=== PATIENT | female | born 1970 | race Caucasian/White ===

== ENCOUNTER → 2016-08-16 | Outpatient (CLI) | payer BC ==
[2016-08-16 11:12] LABS: INR 3.3 (<1.1); Prothrombin Time 31.6 sec (9.0-12.0)
[2016-08-16 11:45] LABS: Hemoglobin A1C 5.5 % (4.2-6.1)
== END | disposition home or self-care (01) ==
LOC: LABWHC1 09:55
PROVIDERS: ATTEND Internal Medicine Critical Care Medicine
DX: I26.99 Other pulmonary embolism without acute cor pulmonale (principal); E11.9 Type 2 diabetes mellitus without complications; E78.5 Hyperlipidemia, unspecified; E03.9 Hypothyroidism, unspecified
CPT/HCPCS: 36415; 80061; 82043; 83036; 84439; 84443; 85610

== ENCOUNTER → 2017-02-20 | Outpatient (CLI) | payer BC ==
--- NOTE | 2017-02-23 07:27 | MM ---
Reason for exam: screening (asymptomatic). Baseline mammogram. History: Patient has history of endometrial cancer at age 45 and has history of other cancer at age 45. Physical Findings: Nurse did not find any significant physical abnormalities on exam. MG 3D Screening Mammo W/Cad Bilateral CC and MLO view(s) were taken. There are scattered fibroglandular densities. There is no discrete abnormality. These results were verbally communicated with the patient and result sheet given to the patient on 02/20/17. ASSESSMENT: Negative, BI-RAD 1 RECOMMENDATION: Routine screening mammogram of both breasts in 1 year.
== END | disposition home or self-care (01) ==
LOC: RADMAMWWP 12:59
PROVIDERS: ATTEND Internal Medicine Critical Care Medicine
DX: Z12.31 Encounter for screening mammogram for malignant neoplasm of breast (principal)
CPT/HCPCS: 77063; G0202

== ENCOUNTER → 2017-09-18 | Day surgery (SDC) | payer BC ==
[2017-09-17 09:25] VITALS: BMI 34.2
[~2017-09-18] MED LIST: LACTATED RINGERS 1,000 ML IV SCH; LIDOCAINE 1% 20 ML VIAL (10MG/ML) FOR IV START INTRADERMA ONE; LIDOCAINE 1% INJ 10MG/ML (20 ML MDV) ONE; PROPOFOL 10 MG/ML 20 ML VIAL IV ONE
[2017-09-18 08:05] VITALS: RESP 16; TEMP 97.5
[2017-09-18 08:08] LABS: Glucose,Whole Blood 114 mg/dL (75-99)
--- NOTE | 2017-09-18 09:06 | P.PCN ---
Date of Procedure: 09/18/17 Procedure(s) Performed: BRIEF HISTORY: Patient is a 47-year-old pleasant white female, scheduled for an elective colonoscopy as a part of evaluation of intermittent rectal bleeding for the last 3 months duration. 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 She has history of cervical cancer diagnosed in 2016 and status post radiation and chemotherapy. PROCEDURE PERFORMED: Colonoscopy with argon plasma coagulation. PREOPERATIVE DIAGNOSIS: Intermittent rectal bleeding for 3 months duration. IV sedation per Anesthesia. PROCEDURE: After informed consent was obtained, the patient, was brought into the endoscopy unit. IV sedation was administered by Anesthesia under continuous monitoring. Digital rectal examination was normal. Initially the Olympus CF- 160 flexible video colonoscope was then inserted in the rectum, gradually advanced into the cecum without any difficulty. Careful examination was performed as the scope was gradually being withdrawn. Ileocecal valve and the appendiceal orifice were visualized and appeared normal. Prep was excellent. Mucosa of the cecum, ascending colon, transverse colon, descending colon, sigmoid colon, and rectum appeared normal. In the distal sigmoid colon between 18-22 cm from the anal verge there were scattered telangiectasia identified with no active bleeding and argon plasma coagulation was performed with good hemostasis. Also scattered telangiectasia noted in the distal rectum which were also coagulated using argon plasma. Retroflexion was performed in the rectum and no lesions were seen. The patient tolerated the procedure well. IMPRESSION: Scattered telangicectasia noted in the distal sigmoid colon and in the distal rectum consistent with radiation colitis, status post argon plasma coag ablation as described above Rest of the colon appeared normal. RECOMMENDATIONS: Findings of this examination were discussed with the patient as well as family. She was advised to resume Coumadin tomorrow. She will avoid constipation. If she has recurrent bleeding she will follow up in the office and will plan on repeat flexible sigmoidoscopy with argon plasma coagulation.
[2017-09-18 09:36] VITALS: BP 111/64; PULSE 62
== END ==
LOC: ORWHC2ENDO 07:26
PROVIDERS: ATTEND Internal Medicine Gastroenterology
DX: K55.8 Other vascular disorders of intestine (principal); Z87.19 Personal history of other diseases of the digestive system; K52.0 Gastroenteritis and colitis due to radiation; I25.2 Old myocardial infarction; E78.5 Hyperlipidemia, unspecified; Z86.718 Personal history of other venous thrombosis and embolism; F39 Unspecified mood [affective] disorder; K21.9 Gastro-esophageal reflux disease without esophagitis; Z79.01 Long term (current) use of anticoagulants; Z79.84 Long term (current) use of oral hypoglycemic drugs; Z79.899 Other long term (current) drug therapy; Z79.891 Long term (current) use of opiate analgesic; Z88.2 Allergy status to sulfonamides
CPT/HCPCS: 81025; 45382; J2001; J2704

== ENCOUNTER 2017-10-08 18:21 | Inpatient (IN) | payer BC ==
[2017-10-08] MEDS ORDERED: ONDANSETRON 4 MG/2 ML VIAL IVP STA (18:50)
[2017-10-08] MEDS ORDERED: MORPHINE SULFATE/PF 10MG/10ML VL IV STA (18:50)
[2017-10-08] MEDS ORDERED: SODIUM CHLORIDE 0.9% 1,000 ML IV STA ×2 (18:50)
[2017-10-08] MEDS ORDERED: ACETAMINOPHEN TAB 325 MG TAB PO STA (18:51)
--- NOTE | 2017-10-08 18:53 | ED ---
General Adult HPI <Murphy Wilkins - Last Filed: 10/08/17 23:25> - General Source: patient, RN notes reviewed Mode of arrival: ambulatory Limitations: no limitations <Martin Meyer - Last Filed: 10/08/17 23:34> - General Chief complaint: Abdominal Pain Stated complaint: Cold, right side pain Time Seen by Provider: 10/08/17 18:40 - History of Present Illness Initial comments: Patient 47-year-old female presenting to the emergency room today with a chief complaint right-sided abdominal pain that began again approximately 4 hours ago. Patient states she did try to take have [place] for this. She states that she had little relief of the symptoms. Patient states pain is located right side does feel some radiation into her back. Patient denies any other complaints or symptoms. Patient denies any recent shortness of breath, chest pain, back pain, nausea or vomiting, numbness or tingling, dysuria or hematuria , constipation or diarrhea, headaches or visual changes, or any other complaints. (Martin Meyer) - Related Data Home Medications Medication Instructions Recorded Confirmed ALPRAZolam [Xanax] 0.5 mg PO BID PRN 11/14/13 10/08/17 Hydrocodone/Acetaminophen [[place] 0.5 - 1 tab PO BID PRN 11/14/13 10/08/17 5-325] Omeprazole [PriLOSEC] 20 mg PO HS 11/14/13 10/08/17 Cholecalciferol [Vitamin D3] 2,000 unit PO BID 11/21/13 10/08/17 Sertraline [Zoloft] 200 mg PO DAILY 09/14/15 10/08/17 Warfarin Sodium [Coumadin] 6 mg PO HS 11/16/15 10/08/17 Biotin 5 mg PO DAILY 09/17/17 10/08/17 Cyanocobalamin (Vitamin B-12) 1,000 mcg PO DAILY 09/17/17 10/08/17 [Vitamin B-12] [place]-3 Fatty Acids/Fish Oil [Fish 1 cap PO DAILY 09/17/17 10/08/17 Oil 1,000 mg Softgel] Metoprolol Succinate (ER) [Toprol 25 mg PO BID 10/08/17 10/08/17 Xl] metFORMIN HCL [Glucophage] 500 mg PO BID 10/08/17 10/08/17 Allergies Allergy/AdvReac Type Severity Reaction Status Date / Time Sulfa (Sulfonamide Allergy Rash/Hives, Verified 10/08/17 19:42 Antibiotics) SHORTNESS OF BREATH Review of Systems ROS Other: All systems not noted in ROS Statement are negative. <Murphy Wilkins - Last Filed: 10/08/17 23:25> ROS Other: All systems not noted in ROS Statement are negative. <Martin Meyer - Last Filed: 10/08/17 23:34> ROS Statement: Those systems with pertinent positive or pertinent negative responses have been documented in the HPI. Past Medical History Past Medical History: Cancer, Chest Pain / Angina, Diabetes Mellitus, Deep Vein Thrombosis (DVT), GERD/Reflux, Hyperlipidemia, Myocardial Infarction ([place]), Pulmonary Embolus (PE) Additional Past Medical History / Comment(s): hx. DVTs and pulmonary emboli on - Coumadin, chronic neck pain, , pancreatitis X2 , cervical CA AND LYMPH NODES , RECTAL BLEEDING, Last Myocardial Infarction Date:: 2009 History of Any Multi-Drug Resistant Organisms: None Reported Past Surgical History: Back Surgery, Section, Cholecystectomy, Orthopedic Surgery, Tubal Ligation, Uterine Ablation Additional Past Surgical History / Comment(s): L4-5, L5-S1 LAMINECTOMY WITH DISCECTOMY. , D&C, CONE BX, SAY SLEEVE Past Anesthesia/Blood Transfusion Reactions: Previous Problems w/ Anesthesia Additional Past Anesthesia/Blood Transfusion Reaction / Comment(s): AWAKENED DURING SURGERY X2; SPINAL SINGH POST D&C, HAD BLOOD PATCH, Past Psychological History: Anxiety, Panic Disorder Smoking Status: Never smoker Past Alcohol Use History: None Reported Past Drug Use History: None Reported - Past Family History Mother Family Medical History: No Reported History Additional Family Medical History / Comment(s): no history Father Family Medical History: Cancer <Martin Meyer - Last Filed: 10/08/17 23:34> General Exam <Murphy Wilkins - Last Filed: 10/08/17 23:25> Limitations: no limitations <Martin Meyer - Last Filed: 10/08/17 23:34> - General Exam Comments Initial Comments: General: The patient is awake and alert, anxious Eye: Pupils are equal, round and reactive to light, extra-ocular movements are intact. No nystagmus. There is normal conjunctiva bilaterally. No signs of icterus. Ears, nose, mouth and throat: There are moist mucous membranes and no oral lesions. Neck: The neck is supple, there is no tenderness or JVD. Cardiovascular: There is a regular rate and rhythm. No murmur, rub or gallop is appreciated. Respiratory: Lungs are clear to auscultation, respirations are non-labored, breath sounds are equal. No wheezes, stridor, rales, or rhonchi. Gastrointestinal: Abdomen soft on palpation. Patient does have tenderness right lower quadrant. No rebound tenderness. No guarding. Musculoskeletal: Normal ROM, no tenderness. Strength 5/5. Sensation intact. Pulses equal bilaterally 2+. Neurological: A&O x 3. CN II-XII intact, There are no obvious motor or sensory deficits. Coordination appears grossly intact. Speech is normal. Skin: Skin is warm and dry and no rashes or lesions are noted. Psychiatric: Cooperative, appropriate mood & affect, normal judgment. (Martin Meyer) Vital Signs 10/08/17 10/08/17 10/08/17 18:32 19:28 21:27 Temperature 103.4 F H 103.0 F H 101.5 F H Pulse Rate 108 H 86 94 Respiratory 24 18 18 Rate Blood Pressure 132/61 147/63 108/54 O2 Sat by Pulse 100 99 96 Oximetry 10/08/17 23:13 Temperature 101.2 F H Pulse Rate 81 Respiratory 18 Rate Blood Pressure 110/57 O2 Sat by Pulse 100 Oximetry Medical Decision Making - Lab Data Result diagrams: 10/08/17 19:05 10/08/17 19:05 <Murphy Wilkins - Last Filed: 10/08/17 23:25> - Lab Data Result diagrams: 10/08/17 19:05 10/08/17 19:05 <Martin Meyer - Last Filed: 10/08/17 23:34> - Medical Decision Making Patient reevaluated by myself, Dr. Wilkins. Patient resting comfortably in bed. Patient states discomfort is starting to worsen. Abdomen is soft with moderate tenderness right lower quadrant and some guarding. Patient has previously seen Dr. Watt for gallbladder problems. Case was discussed in detail with Dr. Camacho, who will admit for Dr. Watt. She does recommend providing antibiotics at this time secondary to fever. Patient has suspected infection and therefore suspected sepsis diagnosed at 11: 26 PM. (Murphy Wilkins) - Lab Data Lab Results 10/08/17 10/08/17 10/08/17 Range/Units 19:05 19:05 19:05 WBC 5.6 (3.8-10.6) k/uL RBC 4.37 (3.80-5.40) m/uL Hgb 11.8 (11.4-16.0) gm/dL Hct 35.3 (34.0-46.0) % MCV 80.8 (80.0-100.0) fL MCH 27.0 (25.0-35.0) pg MCHC 33.5 (31.0-37.0) g/dL RDW 14.4 (11.5-15.5) % Plt Count 139 L (150-450) k/uL Neutrophils % 87 % Lymphocytes % 7 % Monocytes % 4 % Eosinophils % 1 % Basophils % 0 % Neutrophils # 4.9 (1.3-7.7) k/uL Lymphocytes # 0.4 L (1.0-4.8) k/uL Monocytes # 0.2 (0-1.0) k/uL Eosinophils # 0.1 (0-0.7) k/uL Basophils # 0.0 (0-0.2) k/uL PT (9.0-12.0) sec INR (<1.2) APTT (22.0-30.0) sec Sodium 137 (137-145) mmol/L Potassium 4.2 (3.5-5.1) mmol/L Chloride 101 (98-107) mmol/L Carbon Dioxide 22 (22-30) mmol/L Anion Gap 14 mmol/L BUN 17 (7-17) mg/dL Creatinine 0.91 (0.52-1.04) mg/dL Est GFR (CKD-EPI)AfAm 87 (>60 ml/min/1.73 sqM) Est GFR (CKD-EPI)NonAf 75 (>60 ml/min/1.73 sqM) Glucose 99 (74-99) mg/dL Plasma Lactic Acid Trevor (0.7-2.0) mmol/L Calcium 10.4 H (8.4-10.2) mg/dL Total Bilirubin 0.5 (0.2-1.3) mg/dL AST 89 H (14-36) U/L ALT 64 H (9-52) U/L Alkaline Phosphatase 67 (38-126) U/L Total Protein 6.8 (6.3-8.2) g/dL Albumin 4.1 (3.5-5.0) g/dL Amylase 45 (30-110) U/L Lipase 132 (23-300) U/L Urine Color Urine Appearance (Clear) Urine pH (5.0-8.0) Ur Specific [place] (1.001-1.035) Urine Protein (Negative) Urine Glucose (UA) (Negative) Urine Ketones (Negative) Urine Blood (Negative) Urine Nitrite (Negative) Urine Bilirubin (Negative) Urine Urobilinogen (<2.0) mg/dL Ur Leukocyte Esterase (Negative) Urine RBC (0-5) /hpf Urine WBC (0-5) /hpf Ur Squamous Epith Cells (0-4) /hpf Urine Bacteria (None) /hpf Urine Mucus (None) /hpf Urine HCG, Qual Not Detected (Not Detectd) 10/08/17 10/08/17 10/08/17 Range/Units 19:05 19:05 19:05 WBC (3.8-10.6) k/uL RBC (3.80-5.40) m/uL Hgb (11.4-16.0) gm/dL Hct (34.0-46.0) % MCV (80.0-100.0) fL MCH (25.0-35.0) pg MCHC (31.0-37.0) g/dL RDW (11.5-15.5) % Plt Count (150-450) k/uL Neutrophils % % Lymphocytes % % Monocytes % % Eosinophils % % Basophils % % Neutrophils # (1.3-7.7) k/uL Lymphocytes # (1.0-4.8) k/uL Monocytes # (0-1.0) k/uL Eosinophils # (0-0.7) k/uL Basophils # (0-0.2) k/uL PT 14.2 H (9.0-12.0) sec INR 1.5 H (<1.2) APTT 26.0 (22.0-30.0) sec Sodium (137-145) mmol/L Potassium (3.5-5.1) mmol/L Chloride (98-107) mmol/L Carbon Dioxide (22-30) mmol/L Anion Gap mmol/L BUN (7-17) mg/dL Creatinine (0.52-1.04) mg/dL Est GFR (CKD-EPI)AfAm (>60 ml/min/1.73 sqM) Est GFR (CKD-EPI)NonAf (>60 ml/min/1.73 sqM) Glucose (74-99) mg/dL Plasma Lactic Acid Trevor 1.8 (0.7-2.0) mmol/L Calcium (8.4-10.2) mg/dL Total Bilirubin (0.2-1.3) mg/dL AST (14-36) U/L ALT (9-52) U/L Alkaline Phosphatase (38-126) U/L Total Protein (6.3-8.2) g/dL Albumin (3.5-5.0) g/dL Amylase (30-110) U/L Lipase (23-300) U/L Urine Color Yellow Urine Appearance Clear (Clear) Urine pH 8.5 H (5.0-8.0) Ur Specific [place] 1.015 (1.001-1.035) Urine Protein Negative (Negative) Urine Glucose (UA) Negative (Negative) Urine Ketones Negative (Negative) Urine Blood Negative (Negative) Urine Nitrite Negative (Negative) Urine Bilirubin Negative (Negative) Urine Urobilinogen <2.0 (<2.0) mg/dL Ur Leukocyte Esterase Moderate H (Negative) Urine RBC 9 H (0-5) /hpf Urine WBC 10 H (0-5) /hpf Ur Squamous Epith Cells 1 (0-4) /hpf Urine Bacteria Rare H (None) /hpf Urine Mucus Rare H (None) /hpf Urine HCG, Qual (Not Detectd) Disposition <Murphy Wilkins - Last Filed: 10/08/17 23:25> Time of Disposition: 23:34 <Martin Meyer - Last Filed: 10/08/17 23:34> Clinical Impression: Abdominal pain, Fever Disposition: ADMITTED IP TO THIS [facility] Referrals: Lobo Max MD [Primary Care Provider] - 1-2 days
[2017-10-08] MEDS ORDERED: MORPHINE SULFATE/PF 10MG/10ML VL ONE (18:55)
[2017-10-08 19:23] LABS: Basophils % (A) 0 %; Eosinophils # (A) 0.1 k/uL (0-0.7); Eosinophils % (A) 1 %; HCT 35.3 % (34.0-46.0); HGB 11.8 gm/dL (11.4-16.0); Lymphocytes # (A) 0.4 k/uL (1.0-4.8); Lymphocytes % (A) 7 %; MCHC 33.5 g/dL (31.0-37.0); MCV 80.8 fL (80.0-100.0); Mean Platelet Volume 8.3; Monocytes # (A) 0.2 k/uL (0-1.0); Monocytes % (A) 4 %; Neutrophils # (A) 4.9 k/uL (1.3-7.7); Neutrophils % (A) 87 %; Platelet Count 139 k/uL (150-450); RBC 4.37 m/uL (3.80-5.40); RDW 14.4 % (11.5-15.5); WBC 5.6 k/uL (3.8-10.6)
[2017-10-08 19:31] LABS: Appearance,Urine Clear (Clear); Bacteria,Urine Rare /hpf; Bilirubin,Urine Negative (Negative); Blood,Urine Negative (Negative); Color,Urine Yellow; Glucose,Urine (UA) Negative (Negative); Ketones,Urine Negative (Negative); Leukocyte Esterase,Urine Moderate (Negative); Mucus,Urine Rare /hpf; Nitrite,Urine Negative (Negative); PH, Urine 8.5 (5.0-8.0); Protein,Urine Negative (Negative); RBC,Urine 9 /hpf (0-5); Specific Gravity,Urine 1.015 (1.001-1.035); Squamous Epithelial Cell,Urine 1 /hpf (0-4); Urobilinogen,Urine <2.0 mg/dL (<2.0); WBC,Urine 10 /hpf (0-5)
[2017-10-08 19:32] LABS: Albumin 4.1 g/dL (3.5-5.0); Calcium 10.4 mg/dL (8.4-10.2); Potassium 4.2 mmol/L (3.5-5.1); Total Bilirubin 0.5 mg/dL (0.2-1.3); Total Protein 6.8 g/dL (6.3-8.2)
[2017-10-08] MEDS ORDERED: RX INFO: IV CONTRAST WAS GIVEN 1 EACH MISC MISCELLANE PRN (19:45)
[2017-10-08 19:54] LABS: INR 1.5 (<1.2); Prothrombin Time 14.2 sec (9.0-12.0)
--- NOTE | 2017-10-08 20:41 | CT ---
EXAMINATION TYPE: CT abdomen pelvis w con DATE OF EXAM: 10/08/2017 COMPARISON: 09/15/2015 HISTORY: Fever. Right sided abdominal/flank pain. Right arm pain. History of PE. CT DLP: 1407.5 mGycm Automated exposure control for dose reduction was used. TECHNIQUE: Helical acquisition of images was performed from the lung bases through the pelvis. CONTRAST: Performed without Oral Contrast and with IV Contrast, patient injected with 100 mL of Isovue 370. FINDINGS: Lung bases are clear of consolidation. There are small linear density consistent with subsegmental at electasis. There is no pleural effusion. Heart size is normal. Liver spleen pancreas appear normal. There are clips from cholecystectomy. Bile ducts are not dilated . There is no adrenal mass. Kidneys show satisfactory contrast opacification. There is no hydronephrosi s. There is no retroperitoneal adenopathy. There is no ascites. Appendix appears normal. There are fe w sigmoid diverticula. Bladder distends smoothly. There is no evidence of a pelvic mass. There is no sign of a bowel obstruction. There is no evidence of a inguinal hernia. There is a small umbilical hernia that contains fat. Uterus is anteverted. IMPRESSION: NORMAL APPENDIX. NO DILATED DUCTS. THERE IS CLEARING OF THE PLEURAL FLUID AND BASILAR PULMONARY INFIL TRATES COMPARED TO OLD CT SCAN. NO SIGN OF AN ACUTE ABDOMEN AND PELVIS.
--- NOTE | 2017-10-08 20:45 | CT ---
EXAMINATION TYPE: CT angio chest DATE OF EXAM: 10/08/2017 8:24 PM COMPARISON: 07/20/2013 HISTORY: Fever. Right sided abdominal/flank pain. Right arm pain. History of PE. CT DLP: 396.8 mGycm Automated exposure control for dose reduction was used. CONTRAST: CTA scan of the thorax is performed with IV Contrast, patient injected with 100 mL of Isovue 370, pul monary embolism protocol. There are 3-D post processed images.. FINDINGS: The lungs are clear of consolidation. There is no evidence of a pulmonary mass. There is mild subsegm ental atelectasis at the lung bases. Heart size is normal. There is no pericardial effusion. Thoracic aorta appears normal. There is no sign of aneurysm or dissection. I see no filling defects in the pu lmonary arteries. There is no mediastinal adenopathy. There are no hilar masses. The bony thorax appe ars intact. There is mild spurring in the thoracic spine. IMPRESSION: MINIMAL SUBSEGMENTAL ATELECTASIS AT THE LUNG BASES. NO EVIDENCE OF PULMONARY EMBOLISM. NO ADVERSE [place] NGE COMPARED TO OLD EXAM.
--- NOTE | 2017-10-08 22:43 | US ---
EXAMINATION TYPE: US venous doppler duplex LE DATE OF EXAM: 10/08/2017 10:21 PM COMPARISON: NONE CLINICAL HISTORY: Pain. Pain bilateral legs. Hx of PE and DVT patient on blood thinners. SIDE PERFORMED: Bilateral TECHNIQUE: The lower extremity deep venous system is examined utilizing real time linear array sonog axel with graded compression, doppler sonography and color-flow sonography. VESSELS IMAGED: External Iliac Vein (EIV) Common Femoral Vein Deep Femoral Vein Greater Saphenous Vein * Femoral Vein Popliteal Vein Small Saphenous Vein * Proximal Calf Veins (* superficial vessels) FINDINGS: Grayscale, color doppler, spectral doppler imaging performed of the deep veins of the lower extremities. There is normal flow, compressibility, vascular waveforms. IMPRESSION: NEGATIVE FOR DVT BILATERAL LOWER EXTREMITIES.
--- NOTE | 2017-10-08 23:07 | US ---
EXAMINATION TYPE: US transvaginal DATE OF EXAM: 10/08/2017 COMPARISON: NONE CLINICAL HISTORY: pain. RLQ pain TECHNIQUE: Transvaginal (TV). EXAM MEASUREMENTS: Uterus: 5.9 x 2.3 x 3.7 cm Endometrial Stripe: 0.4 cm 1. Uterus: Anteverted 2. Endometrium: wnl 3. Right Ovary: Obscured by overlying bowel gas 4. Left Ovary: Obscured by overlying bowel gas 5. Bilateral Adnexa: wnl 6. Posterior cul-de-sac: wnl IMPRESSION: Ovaries are not seen. No adnexal mass or free fluid. No endometrial thickening seen. No d emonstrated abnormality.
[2017-10-08] MEDS ORDERED: IBUPROFEN IV 800 MG in SODIUM CHLORIDE 0.9% 250 ML IV ONE (23:10)
[2017-10-08] MEDS ORDERED: AMPICILLIN-SULBACTAM 3 GM in SODIUM CHLORIDE 0.9% 100 ML IVPB STA (23:27)
[2017-10-08] MEDS ORDERED: MORPHINE SULFATE/PF 10MG/10ML VL IVP STA (23:28)
[2017-10-08] MEDS ORDERED: NALOXONE 0.4 MG/ML 1 ML VIAL IV PRN (23:34)
[2017-10-08] MEDS ORDERED: ONDANSETRON 4 MG/2 ML VIAL IVP PRN (23:34)
[2017-10-09] MEDS: MORPHINE SULFATE/PF 10MG/10ML VL IV PRN ×3 (06:33→20:13)
[2017-10-09] MEDS: AMPICILLIN-SULBACTAM 3 GM in SODIUM CHLORIDE 0.9% 100 ML IVPB SCH ×2 (07:41→17:49)
[2017-10-09 07:45] LABS: Basophils % (A) 0 %; Eosinophils % (A) 0 %; HCT 33.4 % (34.0-46.0); HGB 10.5 gm/dL (11.4-16.0); Hypochromasia Slight; Lymphocytes # (A) 0.2 k/uL (1.0-4.8); Lymphocytes % (A) 5 %; MCH 26.2 pg (25.0-35.0); MCHC 31.5 g/dL (31.0-37.0); MCV 83.1 fL (80.0-100.0); Mean Platelet Volume 8.6; Monocytes # (A) 0.2 k/uL (0-1.0); Monocytes % (A) 5 %; Neutrophils # (A) 3.5 k/uL (1.3-7.7); Neutrophils % (A) 88 %; Platelet Count 115 k/uL (150-450); RBC 4.01 m/uL (3.80-5.40); RDW 14.4 % (11.5-15.5); WBC 3.9 k/uL (3.8-10.6)
[2017-10-09 07:55] LABS: Albumin 3.5 g/dL (3.5-5.0); Calcium 9.8 mg/dL (8.4-10.2); Potassium 4.6 mmol/L (3.5-5.1); Total Bilirubin 0.8 mg/dL (0.2-1.3)
[2017-10-09] MEDS: ACETAMINOPHEN TAB 325 MG TAB PO PRN ×2 (08:12→17:50)
[2017-10-09 08:20] LABS: Glucose,Whole Blood 111 mg/dL (75-99)
--- NOTE | 2017-10-09 11:39 | P.GSHP ---
<Claudine Prakash - Last Filed: 10/09/17 13:41> History of Present Illness H&P Date: 10/09/17 A 47-year-old female presented to the emergency room on the day of admission with a sudden onset of developing right lower quadrant abdominal pain radiating to the suprapubic area down the right leg. Patient stated that she felt a nausea sensation. Fever chills. She stated no relief when she tried to take [place] that she had at home. States no shortness of breath no chest pain no nausea vomiting no frequent stooling patient states that she's had intermittent episodes of rectal bleeding not new. Patient additionally states that her pain felt similar to "when I had a pancreatitis attack. Patient states that she had lap cholecystectomy done in [address] Khalil and has not had any pancreatic issues since then patient does have a history of uterine cancer with lymph node involvement has completed chemo and radiation treatment. Also has a history of a pulmonary emboli and DVT. This admission patient did have a CAT scan of chest no evidence of a pulmonary emboli and Dopplers to the lower extremities showed no evidence of a DVT is stating that the pain medication does reduce the pain but the pain persist. Additionally the patient did have an ultrasound transvaginal ovaries not seen no demonstrated abnormality Patient underwent recently September 18 an elective colonoscopy with argon plasma coagulation for a workup of episodes intermittent rectal bleeding for the last 3 months. Reviewing the report showed scattered telangicectasis noted distal sigmoid colon and in the distal rectum consistent with radiation colitis rest of the colon Normal Patient this morning's temperature 102.6 heart rate in the 90s - Review of Systems Comment: Essentially unremarkable except as mentioned in the present illness Past Medical History Past Medical History: Cancer, Chest Pain / Angina, Diabetes Mellitus, Deep Vein Thrombosis (DVT), GERD/Reflux, Hyperlipidemia, Myocardial Infarction (HI), Pulmonary Embolus (PE) Additional Past Medical History / Comment(s): hx. DVTs and pulmonary emboli on - Coumadin, chronic neck pain, , pancreatitis X2 , cervical CA AND LYMPH NODES , RECTAL BLEEDING, Last Myocardial Infarction Date:: 2009 History of Any Multi-Drug Resistant Organisms: None Reported Past Surgical History: Back Surgery, Section, Cholecystectomy, Orthopedic Surgery, Tubal Ligation, Uterine Ablation Additional Past Surgical History / Comment(s): L4-5, L5-S1 LAMINECTOMY WITH DISCECTOMY. , D&C, CONE BX, SAY SLEEVE Past Anesthesia/Blood Transfusion Reactions: Previous Problems w/ Anesthesia Additional Past Anesthesia/Blood Transfusion Reaction / Comment(s): AWAKENED DURING SURGERY X2; SPINAL SINGH POST D&C, HAD BLOOD PATCH, Past Psychological History: Anxiety, Panic Disorder Additional Psychological History / Comment(s): ANXIETY DURING THE WINTER, PANIC ATTACKS WHEN DRIVING. Smoking Status: Never smoker Past Alcohol Use History: None Reported Additional Past Alcohol Use History / Comment(s): Patient has been a lifelong nonsmoker. She denies any medical marijuana marijuana, street drug use or alcohol use. She lives at home with her and 2 children. There are 2 dogs in the home. She denies any recent travel but has been to [place] a regular in the past. She denies any service. 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 Past Drug Use History: None Reported - Past Family History Mother Family Medical History: No Reported History Additional Family Medical History / Comment(s): no history Father Family Medical History: Cancer Medications and Allergies Home Medications Medication Instructions Recorded Confirmed Type ALPRAZolam [Xanax] 0.5 mg PO BID PRN 11/14/13 10/08/17 History Hydrocodone/Acetaminophen [[place] 0.5 - 1 tab PO BID PRN 11/14/13 10/08/17 History 5-325] Omeprazole [PriLOSEC] 20 mg PO HS 11/14/13 10/08/17 History Cholecalciferol [Vitamin D3] 2,000 unit PO BID 11/21/13 10/08/17 History Sertraline [Zoloft] 200 mg PO DAILY 09/14/15 10/08/17 History Warfarin Sodium [Coumadin] 6 mg PO HS 11/16/15 10/08/17 History Biotin 5 mg PO DAILY 09/17/17 10/08/17 History Cyanocobalamin (Vitamin B-12) 1,000 mcg PO DAILY 09/17/17 10/08/17 History [Vitamin B-12] [place]-3 Fatty Acids/Fish Oil [Fish 1 cap PO DAILY 09/17/17 10/08/17 History Oil 1,000 mg Softgel] Metoprolol Succinate (ER) [Toprol 25 mg PO BID 10/08/17 10/08/17 History Xl] metFORMIN HCL [Glucophage] 500 mg PO BID 10/08/17 10/08/17 History Allergies Allergy/AdvReac Type Severity Reaction Status Date / Time Sulfa (Sulfonamide Allergy Rash/Hives, Verified 10/08/17 19:42 Antibiotics) SHORTNESS OF BREATH Surgical - Exam Vital Signs Temp Pulse Resp BP Pulse Ox 103.4 F H 108 H 24 132/61 100 10/08/17 18:32 10/08/17 18:32 10/08/17 18:32 10/08/17 18:32 10/08/17 18:32 GENERAL APPEARANCE: 47-year-old patient is alert, resting in bed just received pain medication reports continues to have right lower quadrant pain. VITAL SIGNS: Reviewed HEENT: Head is normocephalic and atraumatic. Pupils are equal and reactive. The nares are patent. Oropharynx is clear without lesions. NECK: Supple without lymphadenopathy. Traches midline. HEART: S1, S2. Regular rate and rhythm. Denies chest pain LUNGS: No crackles or wheezes are heard. Adequate air movement bilaterally ABDOMEN: Soft, positive tenderness to the right lower quadrant radiating to suprapubic area no palpable lymph node enlargement nondistended with good bowel sounds. No peritoneal signs. No palpable organomegaly or masses. EXTREMITIES: Normal skin color and turgor. No cyanosis, rash, ulceration, clubbing or edema. Radial pedal pulses are 2/4 bilaterally. No calf tenderness NEUROLOGICAL: No focal deficits. Strength and sensation are grossly intact. Results - Labs 10/09/17 06:16 10/09/17 06:16 Abnormal Lab Results - Last 24 Hours (Table) 10/08/17 10/08/17 10/08/17 Range/Units 19:05 19:05 19:05 Hgb (11.4-16.0) gm/dL Hct (34.0-46.0) % Plt Count 139 L (150-450) k/uL Lymphocytes # 0.4 L (1.0-4.8) k/uL PT (9.0-12.0) sec INR (<1.2) Creatinine (0.52-1.04) mg/dL Glucose (74-99) mg/dL POC Glucose (mg/dL) (75-99) mg/dL Calcium 10.4 H (8.4-10.2) mg/dL AST 89 H (14-36) U/L ALT 64 H (9-52) U/L Total Protein (6.3-8.2) g/dL Urine pH 8.5 H (5.0-8.0) Ur Leukocyte Esterase Moderate H (Negative) Urine RBC 9 H (0-5) /hpf Urine WBC 10 H (0-5) /hpf Urine Bacteria Rare H (None) /hpf Urine Mucus Rare H (None) /hpf 10/08/17 10/09/17 10/09/17 Range/Units 19:05 06:16 06:16 Hgb 10.5 L (11.4-16.0) gm/dL Hct 33.4 L (34.0-46.0) % Plt Count 115 L (150-450) k/uL Lymphocytes # 0.2 L (1.0-4.8) k/uL PT 14.2 H (9.0-12.0) sec INR 1.5 H (<1.2) Creatinine 1.07 H (0.52-1.04) mg/dL Glucose 101 H (74-99) mg/dL POC Glucose (mg/dL) (75-99) mg/dL Calcium (8.4-10.2) mg/dL AST 147 H (14-36) U/L ALT 128 H (9-52) U/L Total Protein 6.0 L (6.3-8.2) g/dL Urine pH (5.0-8.0) Ur Leukocyte Esterase (Negative) Urine RBC (0-5) /hpf Urine WBC (0-5) /hpf Urine Bacteria (None) /hpf Urine Mucus (None) /hpf 10/09/17 Range/Units 08:17 Hgb (11.4-16.0) gm/dL Hct (34.0-46.0) % Plt Count (150-450) k/uL Lymphocytes # (1.0-4.8) k/uL PT (9.0-12.0) sec INR (<1.2) Creatinine (0.52-1.04) mg/dL Glucose (74-99) mg/dL POC Glucose (mg/dL) 111 H (75-99) mg/dL Calcium (8.4-10.2) mg/dL AST (14-36) U/L ALT (9-52) U/L Total Protein (6.3-8.2) g/dL Urine pH (5.0-8.0) Ur Leukocyte Esterase (Negative) Urine RBC (0-5) /hpf Urine WBC (0-5) /hpf Urine Bacteria (None) /hpf Urine Mucus (None) /hpf Microbiology - Last 24 Hours (Table) 10/08/17 19:05 Urine Culture - Preliminary Urine,Voided Diabetes panel 10/08/17 10/09/17 Range/Units 19:05 06:16 Sodium 137 141 (137-145) mmol/L Potassium 4.2 4.6 (3.5-5.1) mmol/L Chloride 101 105 (98-107) mmol/L Carbon Dioxide 22 26 (22-30) mmol/L BUN 17 13 (7-17) mg/dL Creatinine 0.91 1.07 H (0.52-1.04) mg/dL Glucose 99 101 H (74-99) mg/dL Calcium 10.4 H 9.8 (8.4-10.2) mg/dL AST 89 H 147 H (14-36) U/L ALT 64 H 128 H (9-52) U/L Alkaline Phosphatase 67 66 (38-126) U/L Total Protein 6.8 6.0 L (6.3-8.2) g/dL Albumin 4.1 3.5 (3.5-5.0) g/dL Calcium panel 10/08/17 10/09/17 Range/Units 19:05 06:16 Calcium 10.4 H 9.8 (8.4-10.2) mg/dL Albumin 4.1 3.5 (3.5-5.0) g/dL Pituitary panel 10/08/17 10/09/17 Range/Units 19:05 06:16 Sodium 137 141 (137-145) mmol/L Potassium 4.2 4.6 (3.5-5.1) mmol/L Chloride 101 105 (98-107) mmol/L Carbon Dioxide 22 26 (22-30) mmol/L BUN 17 13 (7-17) mg/dL Creatinine 0.91 1.07 H (0.52-1.04) mg/dL Glucose 99 101 H (74-99) mg/dL Calcium 10.4 H 9.8 (8.4-10.2) mg/dL Adrenal panel 03/29/18 03/30/18 Range/Units 19:05 06:16 Sodium 137 141 (137-145) mmol/L Potassium 4.2 4.6 (3.5-5.1) mmol/L Chloride 101 105 (98-107) mmol/L Carbon Dioxide 22 26 (22-30) mmol/L BUN 17 13 (7-17) mg/dL Creatinine 0.91 1.07 H (0.52-1.04) mg/dL Glucose 99 101 H (74-99) mg/dL Calcium 10.4 H 9.8 (8.4-10.2) mg/dL Total Bilirubin 0.5 0.8 (0.2-1.3) mg/dL AST 89 H 147 H (14-36) U/L ALT 64 H 128 H (9-52) U/L Alkaline Phosphatase 67 66 (38-126) U/L Total Protein 6.8 6.0 L (6.3-8.2) g/dL Albumin 4.1 3.5 (3.5-5.0) g/dL Assessment and Plan Assessment: Impression Present on admission sudden onset right lower quadrant abdominal pain radiating down right leg unclear etiology Present on admission febrile hypotensive History of uterine cancer completed radiation chemotherapy Prior history of pancreatitis [address] Khalil History of a DVT and pulmonary emboli with a CAT scan of the chest this admission no evidence of a pulmonary emboli Dopplers to the lower extremities negative for DVT A recent elective colonoscopy September 18 for workup of intermittent episodes of rectal bleeding showed scattered telangicestasia noted in the distal sigmoid colon and the distal rectum consistent with radiation colitis CAT scan abdomen and pelvis on admission normal appendix no dilated ducts no acute abdomen or pelvis no sign of bowel obstruction no inguinal hernia History of a DVT and a pulmonary emboli on anticoagulation Coumadin INR on admission 1.5 Plan When appropriate will need to restart Coumadin Consult infectious disease Dr. Bennett recommendations fever antibiotics Follow-up on pending labs Resume home meds as appropriate No evidence of an acute surgical abdomen at this time Consult medical service for medical management Repeat labs in the morning Further surgical recommendations pending H&P dictated for Dr. mayorga The above impression and plan of care have been discussed and directed by signing physician. Claudine Prakash nurse practitioner acting as scribe for signing physician. <Zack Mayorga - Last Filed: 10/09/17 15:44> Surgical - Exam Vital Signs Temp Pulse Resp BP Pulse Ox 103.4 F H 108 H 24 132/61 100 10/08/17 18:32 10/08/17 18:32 10/08/17 18:32 10/08/17 18:32 10/08/17 18:32 Results - Labs 10/09/17 06:16 10/09/17 06:16 Abnormal Lab Results - Last 24 Hours (Table) 10/08/17 10/08/17 10/08/17 Range/Units 19:05 19:05 19:05 Hgb (11.4-16.0) gm/dL Hct (34.0-46.0) % Plt Count 139 L (150-450) k/uL Lymphocytes # 0.4 L (1.0-4.8) k/uL PT (9.0-12.0) sec INR (<1.2) Creatinine (0.52-1.04) mg/dL Glucose (74-99) mg/dL POC Glucose (mg/dL) (75-99) mg/dL Calcium 10.4 H (8.4-10.2) mg/dL AST 89 H (14-36) U/L ALT 64 H (9-52) U/L Total Protein (6.3-8.2) g/dL Urine pH 8.5 H (5.0-8.0) Ur Leukocyte Esterase Moderate H (Negative) Urine RBC 9 H (0-5) /hpf Urine WBC 10 H (0-5) /hpf Urine Bacteria Rare H (None) /hpf Urine Mucus Rare H (None) /hpf 10/08/17 10/09/17 10/09/17 Range/Units 19:05 06:16 06:16 Hgb 10.5 L (11.4-16.0) gm/dL Hct 33.4 L (34.0-46.0) % Plt Count 115 L (150-450) k/uL Lymphocytes # 0.2 L (1.0-4.8) k/uL PT 14.2 H (9.0-12.0) sec INR 1.5 H (<1.2) Creatinine 1.07 H (0.52-1.04) mg/dL Glucose 101 H (74-99) mg/dL POC Glucose (mg/dL) (75-99) mg/dL Calcium (8.4-10.2) mg/dL AST 147 H (14-36) U/L ALT 128 H (9-52) U/L Total Protein 6.0 L (6.3-8.2) g/dL Urine pH (5.0-8.0) Ur Leukocyte Esterase (Negative) Urine RBC (0-5) /hpf Urine WBC (0-5) /hpf Urine Bacteria (None) /hpf Urine Mucus (None) /hpf 10/09/17 10/09/17 Range/Units 08:17 11:47 Hgb (11.4-16.0) gm/dL Hct (34.0-46.0) % Plt Count (150-450) k/uL Lymphocytes # (1.0-4.8) k/uL PT (9.0-12.0) sec INR (<1.2) Creatinine (0.52-1.04) mg/dL Glucose (74-99) mg/dL POC Glucose (mg/dL) 111 H 103 H (75-99) mg/dL Calcium (8.4-10.2) mg/dL AST (14-36) U/L ALT (9-52) U/L Total Protein (6.3-8.2) g/dL Urine pH (5.0-8.0) Ur Leukocyte Esterase (Negative) Urine RBC (0-5) /hpf Urine WBC (0-5) /hpf Urine Bacteria (None) /hpf Urine Mucus (None) /hpf Microbiology - Last 24 Hours (Table) 10/08/17 19:05 Urine Culture - Preliminary Urine,Voided Diabetes panel 10/08/17 10/09/17 Range/Units 19:05 06:16 Sodium 137 141 (137-145) mmol/L Potassium 4.2 4.6 (3.5-5.1) mmol/L Chloride 101 105 (98-107) mmol/L Carbon Dioxide 22 26 (22-30) mmol/L BUN 17 13 (7-17) mg/dL Creatinine 0.91 1.07 H (0.52-1.04) mg/dL Glucose 99 101 H (74-99) mg/dL Calcium 10.4 H 9.8 (8.4-10.2) mg/dL AST 89 H 147 H (14-36) U/L ALT 64 H 128 H (9-52) U/L Alkaline Phosphatase 67 66 (38-126) U/L Total Protein 6.8 6.0 L (6.3-8.2) g/dL Albumin 4.1 3.5 (3.5-5.0) g/dL Calcium panel 10/08/17 10/09/17 Range/Units 19:05 06:16 Calcium 10.4 H 9.8 (8.4-10.2) mg/dL Albumin 4.1 3.5 (3.5-5.0) g/dL Pituitary panel 10/08/17 10/09/17 Range/Units 19:05 06:16 Sodium 137 141 (137-145) mmol/L Potassium 4.2 4.6 (3.5-5.1) mmol/L Chloride 101 105 (98-107) mmol/L Carbon Dioxide 22 26 (22-30) mmol/L BUN 17 13 (7-17) mg/dL Creatinine 0.91 1.07 H (0.52-1.04) mg/dL Glucose 99 101 H (74-99) mg/dL Calcium 10.4 H 9.8 (8.4-10.2) mg/dL Adrenal panel 10/08/17 10/09/17 Range/Units 19:05 06:16 Sodium 137 141 (137-145) mmol/L Potassium 4.2 4.6 (3.5-5.1) mmol/L Chloride 101 105 (98-107) mmol/L Carbon Dioxide 22 26 (22-30) mmol/L BUN 17 13 (7-17) mg/dL Creatinine 0.91 1.07 H (0.52-1.04) mg/dL Glucose 99 101 H (74-99) mg/dL Calcium 10.4 H 9.8 (8.4-10.2) mg/dL Total Bilirubin 0.5 0.8 (0.2-1.3) mg/dL AST 89 H 147 H (14-36) U/L ALT 64 H 128 H (9-52) U/L Alkaline Phosphatase 67 66 (38-126) U/L Total Protein 6.8 6.0 L (6.3-8.2) g/dL Albumin 4.1 3.5 (3.5-5.0) g/dL Assessment and Plan Plan: The patient has low pelvic pain which radiates to the right left lower quadrant. She's had some nausea On exam her vital signs are stable. Her abdomen soft. There is no evidence of peritoneal signs. There is no rebound or guarding. She is mildly diffusely the left and right lower quadrants. Patient's CAT scan was reviewed. There is no evidence of acute appendicitis. She may have a viral gastritis. The patient will be observed. If her pelvic pain persists she may benefit from [employer] consultation.
[2017-10-09] MEDS: SODIUM CHLORIDE 0.9% 1,000 ML IV SCH ×2 (11:47→20:15)
[2017-10-09 11:57] LABS: Glucose,Whole Blood 103 mg/dL (75-99)
[2017-10-09] MEDS: INSULIN ASPART 100 UNIT/ML 1 ML 10 ML VIAL SQ SCH ×3 (13:16→21:30)
[2017-10-09] MEDS: PANTOPRAZOLE 40 MG/10 ML VIAL IVP SCH ×2 (13:17→21:43)
[2017-10-09 16:10] LABS: Hepatitis A Antibody IgM Non-Reactive (Non-Reactive); Hepatitis B Core IgM Non-Reactive (Non-Reactive)
[2017-10-09 17:29] LABS: Glucose,Whole Blood 83 mg/dL (75-99)
[2017-10-09 17:49] LABS: Hemoglobin A1C 5.8 % (4.0-6.0)
[2017-10-09] MEDS ORDERED: traMADol 50 MG TAB PO PRN (18:54)
[2017-10-09] MEDS ORDERED: ALPRAZolam 0.5 MG TAB PO PRN (18:54)
[2017-10-09] MEDS ORDERED: HYDROcodone/APAP 5-325MG 1 EACH TAB PO PRN ×2 (18:54)
[2017-10-09 19:51] LABS: INR 1.5 (<1.2); Prothrombin Time 13.7 sec (9.0-12.0)
--- NOTE | 2017-10-09 20:22 | CONS ---
CONSULTATION REASON FOR CONSULTATION: Advice regarding abdominal pain, diarrhea and other medical issues requested by Surgery. HISTORY OF PRESENT ILLNESS: This 47-year-old woman with a past medical history of multiple medical problems, including history of diabetes, history of DVT, history of GERD, hyperlipidemia, history of myocardial infarction, history of pulmonary embolism, history of chronic neck pain, history of pancreatitis x2, history of cholecystitis, history of cholecystectomy , history of anxiety, history panic disorder, history of DJD, history of laminectomy, diskectomy, being followed by Dr. Max in the outpatient setting was complaining of abdominal pain. The patient apparently works in [employer] around [place] the patient had abdominal pain which is on the right lower quadrant, almost like appendicitis, subsequently going up along the right of the right side of the abdomen and right hypochondrium. The patient had multiple episodes of diarrhea and the patient came to [facility] and was admitted for further evaluation and treatment. The CT scan of the abdomen and pelvis was done which showed no evidence of, no evidence of any appendicitis. The patient did have a cholecystectomy previously. The chest CT was also done which showed subsegmental atelectasis on the lungs. There was no evidence of pulmonary embolism and a transvaginal ultrasound which showed no acute abnormality and the patient also had a venous Doppler study which was negative for DVT in both bilateral legs. There is no history of any fever, rigors. No history of headache, loss of consciousness, seizures. PAST MEDICAL HISTORY: History of chest pain, diabetes mellitus, DVT, GERD, hyperlipidemia, history of pulmonary embolism, history of back surgery, history of anxiety, panic attacks. MEDICATIONS PRIOR TO ADMISSION: Include home medications are: 1. Metformin 500 mg p.o. b.i.d. 2. Coumadin 6 mg q.h.s. 3. Zoloft 200 mg daily. 4. Prilosec 20 mg q.h.s. 5. [place]-3 fatty acids 1 p.o. daily. 6. Toprol-XL 25 mg p.o. b.i.d. 7. [place] b.i.d. p.r.n. 8. Vitamin B12 1000 mcg p.o. daily. 9. Vitamin D3 2000 daily. 10.Biotin 5 mg p.o. daily. 11.Xanax 0.5 b.i.d. p.r.n. ALLERGIES: SULFA. FAMILY HISTORY: No history of heart disease or strokes in the family. SOCIAL HISTORY: Occasional alcohol. No history of smoking. No history of no substance abuse. REVIEW OF SYSTEMS: ENT: No diminished hearing, diminished vision. CARDIOVASCULAR: No angina, palpitations. RESPIRATORY: No cough or hemoptysis. GI: As mentioned earlier. : No dysuria. NERVOUS: No numbness or weakness. ALLERGY/IMMUNOLOGY: No asthma or hay fever. MUSCULOSKELETAL: As mentioned earlier. HEMATOLOGY/ONCOLOGY: No history of anemia. ENDOCRINE: As mentioned earlier. CONSTITUTIONAL: As mentioned earlier. DERMATOLOGY: Negative. RHEUMATOLOGY: Negative. PSYCHIATRY: As mentioned earlier. PHYSICAL EXAMINATION: Alert oriented x3. Pulse 90, blood pressure 106/68, respirations 16, temperature 98 degrees, T-max 102.6, pulse ox 94% room air. HEENT: Conjunctivae normal. Oral mucosa moist. NECK: No jugular venous distention. No carotid bruits. No lymph node enlargement. CARDIOVASCULAR: S1, S2 muffled. RESPIRATORY: Breath sounds diminished in the bases. No rhonchi. No crackles. ABDOMEN: Soft. Mild diffuse tenderness, especially in the right side of the abdomen. No point tenderness noted. No guarding. No rigidity. No mass palpable. LEGS: No edema. No swelling. NERVOUS SYSTEM: Higher functions as mentioned earlier. Moves all 4 limbs. No focal motor or sensory deficits. LYMPHATIC: No lymphadenopathy in neck or axillae. SKIN: No ulcer, rash or bleeding. LABS: The hepatitis panel is negative. Otherwise, influenza also negative. WBC 9.8, hemoglobin 10.5. Creatinine 1.07. AST is 147, ALT is 128. ASSESSMENT: 1. Diarrhea, abdominal pain fever, possibly acute viral gastroenteritis. 2. Increased AST, ALT, possibly mild hepatitis. 3. Anemia, normocytic. 4. Thrombocytopenia. 5. Rule out urinary tract infection. 6. History of diabetes mellitus type 2. 7. History of deep venous thrombosis. 8. Gastroesophageal reflux disease. 9. Hyperlipidemia. 10.History of myocardial infarction. 11.History of pulmonary embolus. 12.History of pancreatitis x2. 13.History of back pain. 14.History of degenerative joint disease. 15.History L4-5, L5-S1 laminectomy and diskectomy. 16.History of anxiety, panic disorder. RECOMMENDATION AND DISCUSSION: In this 47-year-old woman who presented with multiple complex medical issues, we will monitor the patient closely, continue the current medical management and continue symptomatic treatment. Otherwise at this time, I will recommend to continue with symptomatic treatment and IV fluids, n.p.o. for now and repeat labs. Will obtain the cultures, also. Prognosis guarded because of multiple complex medical issues. Further recommendations to follow. Thank you, Dr. Godfrey, for letting us participate in the care of this patient. JEAN CLAUDEL / ELSAN: [id number] / [place]
[2017-10-09] MEDS: SERTRALINE 100 MG TAB PO SCH (21:00)
[2017-10-09] MEDS ORDERED: NON-FORMULARY DRUG (Omeprazole [Prilosec] 20 MG) PO SCH (21:00)
[2017-10-09 21:11] LABS: Glucose,Whole Blood 84 mg/dL (75-99)
[2017-10-09] MEDS: metFORMIN 500 MG TAB PO SCH (21:31)
[2017-10-09] MEDS: METOPROLOL TARTRATE 25 MG TAB PO SCH (21:41)
[2017-10-09] MEDS: WARFARIN 3 MG TAB PO SCH (21:41)
--- NOTE | 2017-10-09 22:16 | CONS ---
CONSULTATION DATE OF SERVICE: 10/09/2017 REASON FOR CONSULTATION: Fever. HISTORY OF PRESENT ILLNESS: The patient is a 47-year-old female who presented to the ER at [facility] last evening with the chief complaint of abdominal pain that apparently started suddenly and has been mostly in the right lower abdominal area. She is describing it to be sharp, almost 7 to 8 out of 10. Subsequently she having pain, mostly on the right side of her body. She felt nauseated but no vomiting. Also started having some diarrhea, with no blood or mucus in it. The patient denies having any burning or frequency of urine. No swelling or redness of any joints or any redness in the . With these symptoms, the patient presented to the [facility] ER, where the patient was evaluated by the ER physician. The patient did have fever of 103.4 degrees Fahrenheit on presentation and the fever persisted overnight with one reading of 102.6 this morning. The patient did have tachycardia with a heart rate of 108. However, her white count was normal on presentation and repeat has been normal as well. Slightly elevated liver enzymes of 89 and 64 are up to 147 and 128 today. Slight jump in her creatinine. Her urine did show moderate leukocyte esterases, 10 WBCs. Urine HCG was negative. Patient was started on Unasyn. Infectious Disease was consulted for further recommendation regarding antibiotic therapy. REVIEW OF SYSTEMS: CONSTITUTIONAL: Positive for weakness along with fever. EYES: No complaint. ENT: No complaint. RESPIRATORY: No complaint. CARDIOVASCULAR: No complaint. GENITOURINARY: No complaint. GASTROINTESTINAL: As per HPI. MUSCULOSKELETAL: No complaint. INTEGUMENTARY: No complaint. PSYCHOLOGICAL: No complaint. ENDOCRINE: No complaint. NEUROLOGICAL: No complaint. PAST MEDICAL HISTORY: 1. Diabetes mellitus. 2. History of DVT, PE. 3. TN. 4. Hyperlipidemia. 5. Cervical cancer. PAST SURGICAL HISTORY: 1. Back surgery. 2. . 3. Cholecystectomy. 4. Uterine ablation. 5. Tubal ligation. 6. L5-S1 laminectomy with discectomy. 7. D&C. SOCIAL HISTORY: No history of smoking, drinking or drug use. FAMILY HISTORY: No pertinent findings noticed. ALLERGIES: SULFA. CURRENT MEDICATIONS: 1. Tylenol. 2. [place]. 3. Xanax. 4. Unasyn. 5. NovoLog. 6. Glucophage. 7. Lopressor. 8. Morphine sulfate. 9. Narcan. 10.Zofran. 11.Protonix. 12.Zoloft. 13.Ultram. 14.Coumadin. PHYSICAL EXAMINATION: Blood pressure 107/62 with a pulse of 90, temperature of 98, T-max 102.6. She is 95% on room air. General description is a middle-aged female lying in bed in no distress. No tachypnea or accessory muscle of respiration use. HEENT examination shows slight pallor. No scleral icterus. Oral mucosa membrane is moist. No pharyngeal erythema or thrush. NECK: Trachea is central. No thyromegaly. LUNGS: Unlabored breathing. Clear to auscultation. No wheeze or crackle. HEART: S1, S2. Regular rate and rhythm. ABDOMEN: Soft. Mildly tender. No guarding. No rigidity. No organomegaly. EXTREMITIES: No edema of the feet. SKIN EXAMINATION: No rashes or mass palpable. Neurologically the patient is awake, alert, oriented x3. Mood and affect normal. LABS: Hemoglobin is 10.5, white count of 3.9, BUN of 13, creatinine 1.07. ALT, AST slightly elevated. Amylase and lipase have been normal. Urine was slightly positive. CT angiogram negative for any pneumonia or PE. CT of abdomen and pelvis reported negative for any appendicitis or intraabdominal pathology. DIAGNOSTIC IMPRESSION AND PLAN: Patient admitted to hospital with sepsis in a patient who did have a fever of 103 degrees Fahrenheit. The patient did have tachycardia, meeting criteria for SIRS abdominal symptoms of abdominal pain and no diarrhea with a question of possible viral gastroenteritis. However, cholangitis not entirely excluded, as the patient did have slightly elevated liver enzymes, likely from enteric Gram-negative pathogen, although etiology could have been acute influenza. Clinically doubt pneumonia. Positive UA with a question of urinary tract infection would be the other possibility. PLAN: 1. We will check influenza serology. 2. Check stool for C difficile with stool culture. 3. Hepatitis panel has been checked and has been negative. 4. Unasyn 3 grams q.8 hours will be continued. 5. Will repeat her liver enzymes and CBC tomorrow and follow the cultures. 6. Depending upon the clinical response and cultures, will adjust her medications further if needed. Thank you for this consultation. Will follow this patient along with you. MMODL / IJN: [id number] /
[2017-10-10] MEDS: AMPICILLIN-SULBACTAM 3 GM in SODIUM CHLORIDE 0.9% 100 ML IVPB SCH ×3 (00:32→16:23)
[2017-10-10] MEDS: ACETAMINOPHEN TAB 325 MG TAB PO PRN (00:36)
[2017-10-10 01:02] LABS: Glucose,Whole Blood 78 mg/dL (75-99)
[2017-10-10] MEDS: SODIUM CHLORIDE 0.9% 1,000 ML IV SCH ×3 (04:56→20:39)
[2017-10-10 07:16] LABS: Glucose,Whole Blood 80 mg/dL (75-99)
[2017-10-10 07:22] LABS: INR 1.3 (<1.2); Prothrombin Time 12.1 sec (9.0-12.0)
[2017-10-10 07:28] LABS: Basophils % (A) 0 %; Eosinophils % (A) 2 %; HCT 31.2 % (34.0-46.0); HGB 10.4 gm/dL (11.4-16.0); Lymphocytes # (A) 0.6 k/uL (1.0-4.8); Lymphocytes % (A) 22 %; MCH 27.5 pg (25.0-35.0); MCHC 33.2 g/dL (31.0-37.0); MCV 82.8 fL (80.0-100.0); Mean Platelet Volume 7.8; Monocytes # (A) 0.2 k/uL (0-1.0); Monocytes % (A) 7 %; Neutrophils # (A) 1.6 k/uL (1.3-7.7); Neutrophils % (A) 65 %; Platelet Count 112 k/uL (150-450); RBC 3.76 m/uL (3.80-5.40); RDW 14.1 % (11.5-15.5); WBC 2.5 k/uL (3.8-10.6)
[2017-10-10 07:30] LABS: ALT 101 U/L (9-52); AST 82 U/L (14-36); Albumin 3.1 g/dL (3.5-5.0); Alkaline Phosphatase 63 U/L (38-126); Anion Gap 9 mmol/L; Bilirubin, Delta 0.4 mg/dL (0.0-0.2); Blood Urea Nitrogen 9 mg/dL (7-17); Calcium 9.6 mg/dL (8.4-10.2); Carbon Dioxide 26 mmol/L (22-30); Chloride 109 mmol/L (98-107); Glucose 86 mg/dL (74-99); Potassium 4.6 mmol/L (3.5-5.1); Sodium 144 mmol/L (137-145); Total Bilirubin 0.4 mg/dL (0.2-1.3); Total Protein 5.7 g/dL (6.3-8.2)
[2017-10-10] MEDS ORDERED: NON-FORMULARY DRUG (Biotin [Biotin] 5 MG) PO SCH (09:00)
[2017-10-10] MEDS: PANTOPRAZOLE 40 MG/10 ML VIAL IVP SCH ×2 (09:00→20:39)
[2017-10-10] MEDS: SERTRALINE 100 MG TAB PO SCH (09:01)
[2017-10-10] MEDS: METOPROLOL TARTRATE 25 MG TAB PO SCH ×2 (09:01→20:38)
[2017-10-10] MEDS: metFORMIN 500 MG TAB PO SCH ×2 (09:02→20:38)
[2017-10-10] MEDS: ACETAMINOPHEN IV (For NPO) 1,000 MG in EMPTY BAG 1 BAG IVPB PRN ×2 (11:16→21:03)
[2017-10-10] MEDS: ENOXAPARIN 100 MG/ML SYRINGE SQ SCH ×2 (11:20→20:38)
[2017-10-10] MEDS: MORPHINE SULFATE/PF 10MG/10ML VL IV PRN ×2 (11:43→16:27)
[2017-10-10 11:50] LABS: Glucose,Whole Blood 104 mg/dL (75-99)
--- NOTE | 2017-10-10 13:14 | P.CNPUL ---
History of Present Illness Consult date: 10/10/17 Chief complaint: Fevers, chills, feeling sick History of present illness: A 47-year-old female patient who is very well-known to me. I have taken care of this patient for many years. 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 She also has history of cervical cancer post-chemoradiation therapy, followed up with Dr. Quintana at [facility]. The patient has had also previous bouts of pancreatitis and she is status post cholecystectomy. The patient comes in to the hospital because of a rapid onset episodes of vague abdominal pain that was mainly in the right pelvic area and then moved to her right lateral chest and then the entire abdomen moving to her chest and neck area. She had chills and she started having spikes of temperature. Her or body got weak and she was having rigers and she was feeling very ill and sick. She is having loose bowel movements that she did not have any tara diarrhea. No emesis. She felt nauseated. She was having some on and off headaches. No neck stiffness. Altered mentation. No dysuria fixed or urgency. No history of hematuria. No vaginal discharge. No cough sputum production chest tightness or wheezing. During this current hospital stay, the patient has undergone extensive workup for fever and sepsis. I reviewed her blood work. I noted that the lactic acid level was nonelevated. The patient did not have any significant leukocytosis. Urinalysis was also negative. Rest of the blood work has been essentially within normal with exception of some mild elevation in liver function tests. The patient already had a hepatitis profile screen did came back negative for A , B, and C, influenza screen was negative for influenza A and B, CAT scan of the chest showed no acute abnormalities and there was no evidence of any pulmonary embolism, CAT scan of the abdomen and pelvis showed no evidence of any appendicitis or any other intra-abdominal pathology. The patient has some mild diverticulosis and there is no evidence of any pelvic lymphadenopathy or any progression or recurrence in the cervical cancer. Furthermore, the patient underwent a transvaginal ultrasound that showed no pelvic abnormalities. She was seen by general surgery. She was also seen by infectious disease. She is currently on IV Unasyn. No skin rashes. No travel history other than her recent trip to [place]. She arrived back to [place] approximately a month ago. INR is subtherapeutic at 1.3. Review of Systems A 12 point review of system was done and the positive findings are almost above in history of present illness. The patient has chronic back pain and her pain is not acute at this point in time. No diarrhea for now. No altered mentation. No neck stiffness. No confusion. She is a bit anxious based on the ongoing Is a fever that she is having. No leg swelling. No other complaints otherwise other than the ones mentioned above history of present illness. Past Medical History Past Medical History: Cancer, Chest Pain / Angina, Diabetes Mellitus, Deep Vein Thrombosis (DVT), GERD/Reflux, Hyperlipidemia, Myocardial Infarction (DC), Pulmonary Embolus (PE) Additional Past Medical History / Comment(s): Recurrent DVT and previous history of massive pulmonary embolism maintained on lifelong antibiotic ventilation with Coumadin, cervical cancer post-chemoradiation therapy, hypertension, hyperlipidemia, acid reflux, anxiety, chronic back pain and neck pain, history of pancreatitis 2 post cholecystectomy, degenerative arthritis, previous laminectomy and lumbar spine fusion. Last Myocardial Infarction Date:: 2009 History of Any Multi-Drug Resistant Organisms: None Reported Past Surgical History: Back Surgery, Section, Cholecystectomy, Orthopedic Surgery, Tubal Ligation, Uterine Ablation Additional Past Surgical History / Comment(s): L4-5, L5-S1 LAMINECTOMY WITH DISCECTOMY. , D&C, CONE BX, SAY SLEEVE Past Anesthesia/Blood Transfusion Reactions: Previous Problems w/ Anesthesia Additional Past Anesthesia/Blood Transfusion Reaction / Comment(s): AWAKENED DURING SURGERY X2; SPINAL SINGH POST D&C, HAD BLOOD PATCH, Past Psychological History: Anxiety, Panic Disorder Additional Psychological History / Comment(s): ANXIETY DURING THE WINTER, PANIC ATTACKS WHEN DRIVING. Smoking Status: Never smoker Past Alcohol Use History: None Reported Additional Past Alcohol Use History / Comment(s): Patient has been a lifelong nonsmoker. She denies any medical marijuana marijuana, street drug use or alcohol use. She lives at home with her and 2 children. There are 2 dogs in the home. She denies any recent travel but has been to [place] a regular in the past. She denies any service. 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 Past Drug Use History: None Reported - Past Family History Mother Family Medical History: No Reported History Additional Family Medical History / Comment(s): no history Father Family Medical History: Cancer Medications and Allergies Home Medications Medication Instructions Recorded Confirmed Type ALPRAZolam [Xanax] 0.5 mg PO BID PRN 11/14/13 10/08/17 History Hydrocodone/Acetaminophen [Roach 0.5 - 1 tab PO BID PRN 11/14/13 10/08/17 History 5-325] Omeprazole [PriLOSEC] 20 mg PO HS 11/14/13 10/08/17 History Cholecalciferol [Vitamin D3] 2,000 unit PO BID 11/21/13 10/08/17 History Sertraline [Zoloft] 200 mg PO DAILY 09/14/15 10/08/17 History Warfarin Sodium [Coumadin] 6 mg PO HS 11/16/15 10/08/17 History Biotin 5 mg PO DAILY 09/17/17 10/08/17 History Cyanocobalamin (Vitamin B-12) 1,000 mcg PO DAILY 09/17/17 10/08/17 History [Vitamin B-12] Inola-3 Fatty Acids/Fish Oil [Fish 1 cap PO DAILY 09/17/17 10/08/17 History Oil 1,000 mg Softgel] Metoprolol Succinate (ER) [Toprol 25 mg PO BID 10/08/17 10/08/17 History Xl] metFORMIN HCL [Glucophage] 500 mg PO BID 10/08/17 10/08/17 History Allergies Allergy/AdvReac Type Severity Reaction Status Date / Time Sulfa (Sulfonamide Allergy Rash/Hives, Verified 10/08/17 19:42 Antibiotics) SHORTNESS OF BREATH Physical Exam Vitals: Vital Signs Temp Pulse Resp BP Pulse Ox 10/10/17 07:00 97.8 F 76 20 146/70 10/10/17 01:00 98.4 F 76 16 117/73 93 L 10/09/17 21:00 16 10/09/17 19:30 99.8 F H 68 16 130/73 96 10/09/17 15:00 98.0 F 90 16 107/62 95 Intake and Output 10/09/17 10/10/17 10/10/17 22:59 06:59 14:59 Other: Voiding Method Toilet # Voids 1 The patient appeared well nourished and normally developed. Vital signs as documented. Head exam is unremarkable. No scleral icterus or corneal arcus noted. Neck is without jugular venous distension, thyromegaly, or carotid bruits. Carotid upstrokes are brisk bilaterally. Lungs are clear to auscultation and percussion. Cardiac exam reveals the PMI to be normally sized and situated. Rhythm is regular. First and second heart sounds normal. No murmurs, rubs or gallops. Abdominal exam reveals some mild direct tenderness throughout the abdomen especially in the right side in the right upper and right lower quadrant extending to her right inguinal and pelvic area. No rebound tenderness. No guarding. No ascites. Abdomen general soft. No ascites.. Extremities are nonedematous and both femoral and pedal pulses are normal.Examination of the skin revealed no evidence of significant rashes, suspicious appearing nevi or other concerning lesions. Neurologically the patient is awake and alert and there is no focal neurological deficit. There is no neck stiffness. Muscular skeletal exam shows no joint deformities or any fractures across fractures. Results - Laboratory Findings CBC and BMP: 10/10/17 06:15 10/10/17 06:15 PT/INR, D-dimer PT 12.1 sec (9.0-12.0) H 10/10/17 06:15 INR 1.3 (<1.2) H 10/10/17 06:15 Abnormal lab findings: Abnormal Labs 10/08/17 10/08/17 10/08/17 19:05 19:05 19:05 WBC RBC Hgb Hct Plt Count 139 L Lymphocytes # 0.4 L PT INR Chloride Creatinine Glucose POC Glucose (mg/dL) Calcium 10.4 H Delta Bilirubin AST 89 H ALT 64 H Total Protein Albumin Urine pH 8.5 H Ur Leukocyte Esterase Moderate H Urine RBC 9 H Urine WBC 10 H Urine Bacteria Rare H Urine Mucus Rare H 10/08/17 10/09/17 10/09/17 19:05 06:16 06:16 WBC RBC Hgb 10.5 L Hct 33.4 L Plt Count 115 L Lymphocytes # 0.2 L PT 14.2 H INR 1.5 H Chloride Creatinine 1.07 H Glucose 101 H POC Glucose (mg/dL) Calcium Delta Bilirubin AST 147 H ALT 128 H Total Protein 6.0 L Albumin Urine pH Ur Leukocyte Esterase Urine RBC Urine WBC Urine Bacteria Urine Mucus 10/09/17 10/09/17 10/09/17 08:17 11:47 19:40 WBC RBC Hgb Hct Plt Count Lymphocytes # PT 13.7 H INR 1.5 H Chloride Creatinine Glucose POC Glucose (mg/dL) 111 H 103 H Calcium Delta Bilirubin AST ALT Total Protein Albumin Urine pH Ur Leukocyte Esterase Urine RBC Urine WBC Urine Bacteria Urine Mucus 10/10/17 10/10/17 10/10/17 06:15 06:15 06:15 WBC 2.5 L RBC 3.76 L Hgb 10.4 L Hct 31.2 L Plt Count 112 L Lymphocytes # 0.6 L PT 12.1 H INR 1.3 H Chloride 109 H Creatinine Glucose POC Glucose (mg/dL) Calcium Delta Bilirubin 0.4 H AST 82 H ALT 101 H Total Protein 5.7 L Albumin 3.1 L Urine pH Ur Leukocyte Esterase Urine RBC Urine WBC Urine Bacteria Urine Mucus 10/10/17 11:44 WBC RBC Hgb Hct Plt Count Lymphocytes # PT INR Chloride Creatinine Glucose POC Glucose (mg/dL) 104 H Calcium Delta Bilirubin AST ALT Total Protein Albumin Urine pH Ur Leukocyte Esterase Urine RBC Urine WBC Urine Bacteria Urine Mucus - Diagnostic Findings CT scan - chest: image reviewed Assessment and Plan Plan: Assessment 1 acute febrile illness with some vague abdominal pain/discomfort in addition to chills and feeling sick. The workup has been negative thus far including the CAT scan of the chest abdomen and pelvis. Blood work has been negative for now and the patient has not have any major abnormalities in the blood and urine tests with the exception of some mild elevation of the liver function tests. We may be dealing with an acute viral illness. Influenza and he has been negative. Possible EBV versus CMV infection. Other sources of septicemia cannot be completely ruled out. 2 abnormal liver function tests, patient is status post cholecystectomy. 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 PT/INR is subtherapeutic 6 generalized anxiety disorder/depression 7 diabetes mellitus 8 hyperlipidemia 9 obstructive sleep apnea currently receiving no treatment Plan Monitor fever pattern. Hydrate the patient. Send blood and urine cultures. IV Unasyn as an empiric antibiotic coverage. Check EBV and CMV titers. ID is on the case. We'll continue to follow. Repeat lactic acid levels.
--- NOTE | 2017-10-10 13:50 | P.PN ---
Progress Note - Text Progress Note Date: 10/10/17 Patient seen and evaluated. Pain along right flank to right lower quadrant improved. Recommend US of kidney for possible kidney stones. No surgical intervention at this time.
[2017-10-10] MEDS: INSULIN ASPART 100 UNIT/ML 1 ML 10 ML VIAL SQ SCH ×3 (13:59→20:50)
--- NOTE | 2017-10-10 14:05 | PN ---
PROGRESS NOTE DATE OF SERVICE: 10/10/2017 This 47-year-old woman was admitted with abdominal pain, also complaining of muscle aches, fever and as well as a headache also. The patient apparently has been to [place] also. The patient also had mild pancytopenia also at this time. The CT scan did not show acute abnormality as mentioned earlier. Multiple consultants following the patient including Infectious Disease and as well as surgery. PAST MEDICAL HISTORY: Reviewed. REVIEW OF SYSTEMS: Cardiovascular: No angina. Respiration: As mentioned earlier. GI: As mentioned earlier. no dysuria or retention. Nervous system: No numbness, weakness. CURRENT MEDICATIONS ARE: 1. Tylenol 650 q.6h p.r.n. 2. [place]ours 5 mg q.6h p.r.n. 3. Xanax. 4. Unasyn 3 g IV q.i.d. 5. Lovenox 90 mg subcu b.i.d. 6. NovoLog scale. 7. Glucophage 500 mg b.i.d. 8. Lopressor. 9. Morphine. 10.Narcan. 11.Zofran. 12.Protonix. 13.Zoloft. 14.Ultram. 15.Coumadin 6 mg p.o. daily. PHYSICAL EXAM: Patient is alert, oriented x3. The pulse is 70. Blood pressure 140/77, respiration 16, temperature 98.4, pulse ox 93% on room air. HEENT: Conjunctivae normal. Oral mucosa moist. Neck is no jugular venous distention. No carotid bruit. No lymph node enlargement. Cardiovascular systems: S1, S2 muffled. Respiration: Breath sounds diminished in the bases. A few scattered rhonchi. No crackles. ABDOMEN: Soft. Mild diffuse discomfort. No guarding. No rigidity. No mass palpable. Legs are no edema. No swelling. Central nervous system: No focal deficits. LABS: WBC 2.3, hemoglobin 10.4, platelets 112. Otherwise the bilirubin is 0.4, AST is 82, ALT is 101. ASSESSMENT: 1. Diarrhea, abdominal pain fever, possible acute viral gastroenteritis. 2. Increased AST, ALT, possibly mild hepatitis. 3. Mild pancytopenia, possibly secondary to viral syndrome. 4. Rule out urinary tract infection. 5. History of diabetes type 2. 6. History of deep vein thrombosis. 7. History of pulmonary embolus. 8. History of gastroesophageal reflux disease. 9. Hyperlipidemia. 10.History myocardial infarction. 11.History of pancreatitis x2. 12.History of back pain. 13.History of degenerative joint disease. 14.History L4-L5, L5-S1 laminectomy diskectomy. 15.History of anxiety, panic disorder. RECOMMENDATIONS AND DISCUSSION: Recommend to continue current medications, continue management and symptomatic treatment. I would recommend repeat labs. The Tylenol and Morphine may be given for symptomatic treatment. Closely follow with Infectious Disease. Cultures are negative so far. Otherwise we will recommend pneumatic compression. Otherwise monitor PT/INR. Monitor labs closely. The patient is started on Lovenox as well. The blood sugar will be closely monitored. Overall prognosis guarded because of multiple complex medical issues. Further recommendations to follow. See orders for details. MMODL / IJN: [id number] /
[2017-10-10 15:00] VITALS: RESP 16
--- NOTE | 2017-10-10 15:52 | US ---
EXAMINATION TYPE: US kidneys/renal and bladder DATE OF EXAM: 10/10/2017 COMPARISON: CT 10/08/2017 CLINICAL HISTORY: Right flank pain. EXAM MEASUREMENTS: Right Kidney: 10.3 x 4.9 x 4.9 cm Left Kidney: 10.5 x 5.2 x 4.5 cm Exam technically difficult due to bowel gas obscuring parts of the kidneys. Right Kidney: No hydronephrosis or masses seen Left Kidney: No hydronephrosis or masses seen Bladder: wnl Bilateral Jets seen: Yes There is no evidence for hydronephrosis. No nephrolithiasis. No masses. The urinary bladder is anecho ic. Bilateral ureteral jets are seen. IMPRESSION: No acute process.
[2017-10-10 17:02] LABS: Glucose,Whole Blood 101 mg/dL (75-99)
--- NOTE | 2017-10-10 18:36 | P.PN ---
Subjective Progress Note Date: 10/10/17 The patient is a 47-year-old female admitted secondary to develop an acute onset right flank to right lower quadrant abdominal pain. She also reported having fevers. Upon admission, temperatures were over 103. Multiple diagnostic studies including transvaginal ultrasound, CT of the abdomen and pelvis were negative for acute reasons for her abdominal pain. Separately, she is a complicated personal history of cervical cancer as well as pulmonary embolus. Pain along right flank to right lower quadrant improved. Her fevers are resolving. Multiple consultants following. Objective - Vital Signs Vital signs: Vital Signs Temp 97.8 F 10/10/17 07:00 Pulse 76 10/10/17 07:00 Resp 20 10/10/17 07:00 BP 146/70 10/10/17 07:00 Pulse Ox 93 L 10/10/17 01:00 Intake & Output 10/09/17 10/10/17 10/10/17 18:59 06:59 18:59 Other: Voiding Method Toilet Toilet # Voids 2 1 - Exam GENERAL: Well developed and in no acute distress. Pleasant. HEENT: No sclera icterus. Extraocular movements grossly intact. Moist buccal mucosa. Head is atraumatic, normocephalic. Hears conversational speech. No nasal drainage. NECK: Supple without lymphadenopathy. No JV distention. CHEST: Non-labored respirations and equal bilateral excursions. CARDIOVASCULAR: Regular rate and rhythm. Palpable 2+ radial pulses. ABDOMEN: Soft. Nondistended. Tender along the right flank and right lower quadrant. MUSCULOSKELETAL: No clubbing, cyanosis or edema. NEUROLOGIC: No focal or lateralizing signs. PSYCH: Appropriate affect. Alert and oriented to person, place and time. SKIN: Good skin turgor. Well perfused. - Labs CBC & Chem 7: 10/10/17 06:15 10/10/17 06:15 Labs: Abnormal Lab Results - Last 24 Hours (Table) 10/09/17 10/10/17 10/10/17 Range/Units 19:40 06:15 06:15 WBC 2.5 L (3.8-10.6) k/uL RBC 3.76 L (3.80-5.40) m/uL Hgb 10.4 L (11.4-16.0) gm/dL Hct 31.2 L (34.0-46.0) % Plt Count 112 L (150-450) k/uL Lymphocytes # 0.6 L (1.0-4.8) k/uL ESR (0-20) mm/hr PT 13.7 H (9.0-12.0) sec INR 1.5 H (<1.2) Chloride 109 H (98-107) mmol/L POC Glucose (mg/dL) (75-99) mg/dL Delta Bilirubin 0.4 H (0.0-0.2) mg/dL AST 82 H (14-36) U/L ALT 101 H (9-52) U/L C-Reactive Protein (<10.0) mg/L Total Protein 5.7 L (6.3-8.2) g/dL Albumin 3.1 L (3.5-5.0) g/dL 10/10/17 10/10/17 10/10/17 Range/Units 06:15 10:54 10:54 WBC (3.8-10.6) k/uL RBC (3.80-5.40) m/uL Hgb (11.4-16.0) gm/dL Hct (34.0-46.0) % Plt Count (150-450) k/uL Lymphocytes # (1.0-4.8) k/uL ESR 46 H (0-20) mm/hr PT 12.1 H (9.0-12.0) sec INR 1.3 H (<1.2) Chloride (98-107) mmol/L POC Glucose (mg/dL) (75-99) mg/dL Delta Bilirubin (0.0-0.2) mg/dL AST (14-36) U/L ALT (9-52) U/L C-Reactive Protein 79.1 H (<10.0) mg/L Total Protein (6.3-8.2) g/dL Albumin (3.5-5.0) g/dL 10/10/17 Range/Units 11:44 WBC (3.8-10.6) k/uL RBC (3.80-5.40) m/uL Hgb (11.4-16.0) gm/dL Hct (34.0-46.0) % Plt Count (150-450) k/uL Lymphocytes # (1.0-4.8) k/uL ESR (0-20) mm/hr PT (9.0-12.0) sec INR (<1.2) Chloride (98-107) mmol/L POC Glucose (mg/dL) 104 H (75-99) mg/dL Delta Bilirubin (0.0-0.2) mg/dL AST (14-36) U/L ALT (9-52) U/L C-Reactive Protein (<10.0) mg/L Total Protein (6.3-8.2) g/dL Albumin (3.5-5.0) g/dL Microbiology - Last 24 Hours (Table) 10/08/17 19:05 Urine Culture - Final Urine,Voided 10/08/17 19:05 Blood Culture - Preliminary Blood No Growth after 24 hours Assessment and Plan (1) Right flank pain Current Visit: Yes Status: Acute Code(s): R10.9 - UNSPECIFIED ABDOMINAL PAIN SNOMED Code(s): 011888122 (2) Fever Current Visit: Yes Status: Acute Code(s): R50.9 - FEVER, UNSPECIFIED SNOMED Code(s): 342725104 Plan: 1. Recommend US of kidney for possible kidney stones. 2. No surgical intervention at this time.
[2017-10-10] MEDS: WARFARIN 3 MG TAB PO SCH (20:38)
[2017-10-10 21:01] LABS: Glucose,Whole Blood 115 mg/dL (75-99)
--- NOTE | 2017-10-10 23:20 | PN ---
PROGRESS NOTE DATE OF SERVICE: 10/10/2017. REASON FOR FOLLOWUP: Fever, possible abdominal source. INTERVAL HISTORY: The patient's overall fever pattern has improved. Her temperature has been 99 this morning. The patient abdominal pain to the right lower abdominal area has slightly improved as well. No nausea or vomiting and did have some chronic diarrhea with no worsening. EXAMINATION: Her blood pressure is 111/63 with a pulse of 53 temperature 97.8. She is 95% on room air. General description is a middle aged female lying in bed in no distress. RESPIRATORY SYSTEM: Unlabored breathing. Clear to auscultation anteriorly. HEART: S1, S2. Regular rate and rhythm. ABDOMEN: Soft. Minimally tender, right lower quadrant area. EXTREMITIES: No edema of the feet. LABS: Hemoglobin is 10.4, white count 2.5. BUN of 9, creatinine 0.88. slightly improved. DIAGNOSTIC IMPRESSION AND PLAN: Patient admitted to the hospital with fever and abdominal pain. So far, workup has been negative and cultures are negative as well. Fever responded to Unasyn. That will be continued while waiting for the culture to finalize. Continue supportive care. MMODL / IJN: [id number] /
[2017-10-11] MEDS: AMPICILLIN-SULBACTAM 3 GM in SODIUM CHLORIDE 0.9% 100 ML IVPB SCH ×2 (00:39→10:33)
[2017-10-11] MEDS: MORPHINE SULFATE/PF 10MG/10ML VL IV PRN (01:55)
[2017-10-11] MEDS: SODIUM CHLORIDE 0.9% 1,000 ML IV SCH ×2 (03:01→10:37)
[2017-10-11 07:01] LABS: Glucose,Whole Blood 88 mg/dL (75-99)
[2017-10-11 07:16] LABS: INR 1.4 (<1.2); Prothrombin Time 13.4 sec (9.0-12.0)
[2017-10-11] MEDS ORDERED: MORPHINE SULF 5MG/10ML VL IV PRN (07:32)
[2017-10-11] MEDS: INSULIN ASPART 100 UNIT/ML 1 ML 10 ML VIAL SQ SCH ×2 (09:14→13:35)
[2017-10-11 09:41] VITALS: BP 122/64; PULSE 64; TEMP 97.4
[2017-10-11] MEDS: SERTRALINE 100 MG TAB PO SCH (09:41)
[2017-10-11] MEDS: ENOXAPARIN 100 MG/ML SYRINGE SQ SCH (09:41)
[2017-10-11] MEDS: metFORMIN 500 MG TAB PO SCH (09:41)
[2017-10-11] MEDS: METOPROLOL TARTRATE 25 MG TAB PO SCH (09:41)
[2017-10-11] MEDS: PANTOPRAZOLE 40 MG/10 ML VIAL IVP SCH (09:42)
[2017-10-11 11:08] LABS: Glucose,Whole Blood 120 mg/dL (75-99)
--- NOTE | 2017-10-11 12:04 | P.PN ---
Subjective Progress Note Date: 10/11/17 Principal diagnosis: Abdominal pain, viral gastroenteritis This is a 47-year-old female patient presents emergency department with abdominal pain, nausea and vomiting. The patient also had some diffuse complaints of muscle ache and fever as well as headache. CAT scan of abdomen and pelvis was negative. Surgery consult did not recommend any surgical intervention. She feels better today. She's tolerating her clear liquid diet. She states she has a mild headache but it has improved with medication. No nausea or vomiting or diarrhea overnight. She's been up ambulating to the bathroom without any difficulties. Objective - Vital Signs Vital signs: Vital Signs Temp 97.4 F L 10/11/17 09:38 Pulse 64 10/11/17 09:38 Resp 16 10/11/17 09:38 BP 122/64 10/11/17 09:38 Pulse Ox 100 10/11/17 09:38 Intake & Output 10/10/17 10/11/17 10/11/17 18:59 06:59 18:59 Intake Total 2400 Balance 2400 Intake: Intake, IV Titration 2400 Amount ACETAMINOPHEN IV (For NPO 400 ) 1,000 mg In Empty Bag 1 bag @ 400 mls/hr IVPB Q6HR PRN Rx#:[id number] Sodium Chloride 0.9% 1, 2000 000 ml @ 125 mls/hr IV . Q8H TAB Rx#:[id number] Other: Voiding Method Toilet Toilet # Voids 3 3 - Constitutional General appearance: Present: obese - EENT Eyes: Present: normal appearance ENT: Present: normal oropharynx Ears: bilateral: normal - Neck Neck: Present: normal ROM - Respiratory Respiratory: bilateral: CTA - Cardiovascular Rhythm: regular Heart sounds: normal: S1, S2 - Gastrointestinal Gastrointestinal Comment(s): Nontender General gastrointestinal: Present: normal bowel sounds, soft - Integumentary Integumentary: Present: normal - Neurologic Neurologic: Present: CNII-XII intact - Musculoskeletal Musculoskeletal: Present: gait normal - Psychiatric Psychiatric: Present: A&O x's 3, appropriate affect - Labs CBC & Chem 7: 10/10/17 06:15 10/10/17 06:15 Labs: Abnormal Lab Results - Last 24 Hours (Table) 10/10/17 10/10/17 10/10/17 Range/Units 10:54 10:54 16:42 ESR 46 H (0-20) mm/hr PT (9.0-12.0) sec INR (<1.2) POC Glucose (mg/dL) 101 H (75-99) mg/dL C-Reactive Protein 79.1 H (<10.0) mg/L 10/10/17 10/11/17 10/11/17 Range/Units 20:49 06:50 11:02 ESR (0-20) mm/hr PT 13.4 H (9.0-12.0) sec INR 1.4 H (<1.2) POC Glucose (mg/dL) 115 H 120 H (75-99) mg/dL C-Reactive Protein (<10.0) mg/L Microbiology - Last 24 Hours (Table) 10/09/17 09:40 Stool Culture - Preliminary Stool 10/08/17 19:05 Blood Culture - Preliminary Blood No Growth after 48 hours Assessment and Plan Assessment: Abdominal pain probable acute viral gastroenteritis Elevated liver enzymes with mild hepatitis improving Pancytopenia secondary to viral syndrome History of diabetes type 2 History of PE and DVT GERD Hyperlipidemia History of [place] History of pancreatitis DJD Anxiety and panic disorder Plan: Continue with clear liquid diet per surgical services. Continue current medication regimen including antibiotic therapy. Hopefully the patient's diet can be increased today but she has not had any nausea, abdominal pain or diarrhea overnight. Likely she has viral gastroenteritis which is self- limiting. If her diet can be advanced and she tolerates this we will plan on discharge home tomorrow. Renal ultrasound is negative. Continue with GI referral axis. INR is only 1.4. Continue Coumadin therapy with Lovenox bridge.
--- NOTE | 2017-10-11 12:36 | P.PN ---
Subjective Progress Note Date: 10/11/17 The patient is a 47-year-old female admitted secondary to acute onset right flank to right lower quadrant abdominal pain. Since admission, her abdominal pain is completely resolved. No reports of fevers or chills. She is tolerating diet. She is eager to go home. All diagnostic studies are negative. Laboratory studies are also unremarkable. Objective - Vital Signs Vital signs: Vital Signs Temp 97.4 F L 10/11/17 09:38 Pulse 64 10/11/17 09:38 Resp 16 10/11/17 09:38 BP 122/64 10/11/17 09:38 Pulse Ox 100 10/11/17 09:38 Intake & Output 10/10/17 10/11/17 10/11/17 18:59 06:59 18:59 Intake Total 2400 Balance 2400 Intake: Intake, IV Titration 2400 Amount ACETAMINOPHEN IV (For NPO 400 ) 1,000 mg In Empty Bag 1 bag @ 400 mls/hr IVPB Q6HR PRN Rx#:[id number] Sodium Chloride 0.9% 1, 2000 000 ml @ 125 mls/hr IV . Q8H TAB Rx#:[id number] Other: Voiding Method Toilet Toilet # Voids 3 3 - Exam GENERAL: Well developed and in no acute distress. Pleasant. HEENT: No sclera icterus. Extraocular movements grossly intact. Moist buccal mucosa. Head is atraumatic, normocephalic. Hears conversational speech. No nasal drainage. NECK: Supple without lymphadenopathy. No JV distention. CHEST: Non-labored respirations and equal bilateral excursions. CARDIOVASCULAR: Regular rate and rhythm. Palpable 2+ radial pulses. ABDOMEN: Soft. Nondistended. Resolved right flank and right lower quadrant abdominal pain MUSCULOSKELETAL: No clubbing, cyanosis or edema. NEUROLOGIC: No focal or lateralizing signs. PSYCH: Appropriate affect. Alert and oriented to person, place and time. SKIN: Good skin turgor. Well perfused. - Labs CBC & Chem 7: 10/10/17 06:15 10/10/17 06:15 Labs: Abnormal Lab Results - Last 24 Hours (Table) 10/10/17 10/10/17 10/10/17 Range/Units 10:54 10:54 16:42 ESR 46 H (0-20) mm/hr PT (9.0-12.0) sec INR (<1.2) POC Glucose (mg/dL) 101 H (75-99) mg/dL C-Reactive Protein 79.1 H (<10.0) mg/L 10/10/17 10/11/17 10/11/17 Range/Units 20:49 06:50 11:02 ESR (0-20) mm/hr PT 13.4 H (9.0-12.0) sec INR 1.4 H (<1.2) POC Glucose (mg/dL) 115 H 120 H (75-99) mg/dL C-Reactive Protein (<10.0) mg/L Microbiology - Last 24 Hours (Table) 10/09/17 09:40 Stool Culture - Preliminary Stool 10/08/17 19:05 Blood Culture - Preliminary Blood No Growth after 48 hours - Imaging and Cardiology Ultrasound of the kidney unremarkable Assessment and Plan (1) Right flank pain Current Visit: Yes Status: Acute Code(s): R10.9 - UNSPECIFIED ABDOMINAL PAIN SNOMED Code(s): 277775641 (2) Fever Current Visit: Yes Status: Acute Code(s): R50.9 - FEVER, UNSPECIFIED SNOMED Code(s): 383385224 Plan: 1. Her abdominal pain has resolved. 2. Patient stable for discharge. 3. Follow-up with primary care provider in 3-5 days
--- NOTE | 2017-10-11 13:37 | P.PN ---
Subjective Progress Note Date: 10/11/17 On today's evaluation, the patient is feeling much better. No further episodes of fever. All of the cultures of been negative. No chills. The patient has no abdominal pain and her pain is subsided. No body aches or pains. Some limited headache this morning which also recovered. All of the labs are within normal limits. I gave her some Lovenox yesterday to bridge her while her INR was subtherapeutic. The rest of the viral titers including EBV and CMV are still pending. Objective - Vital Signs Vital signs: Vital Signs Temp 97.4 F L 10/11/17 09:38 Pulse 64 10/11/17 09:38 Resp 16 10/11/17 09:38 BP 122/64 10/11/17 09:38 Pulse Ox 100 10/11/17 09:38 Intake & Output 10/10/17 10/11/17 10/11/17 18:59 06:59 18:59 Intake Total 2400 Balance 2400 Intake: Intake, IV Titration 2400 Amount ACETAMINOPHEN IV (For NPO 400 ) 1,000 mg In Empty Bag 1 bag @ 400 mls/hr IVPB Q6HR PRN Rx#:[id number] Sodium Chloride 0.9% 1, 2000 000 ml @ 125 mls/hr IV . Q8H TAB Rx#:[id number] Other: Voiding Method Toilet Toilet # Voids 3 3 - Exam GENERAL: Well developed and in no acute distress. Pleasant. HEENT: No sclera icterus. Extraocular movements grossly intact. Moist buccal mucosa. Head is atraumatic, normocephalic. Hears conversational speech. No nasal drainage. NECK: Supple without lymphadenopathy. No JV distention. CHEST: Non-labored respirations and equal bilateral excursions. CARDIOVASCULAR: Regular rate and rhythm. Palpable 2+ radial pulses. ABDOMEN: Soft. Nondistended. Resolved right flank and right lower quadrant abdominal pain MUSCULOSKELETAL: No clubbing, cyanosis or edema. NEUROLOGIC: No focal or lateralizing signs. PSYCH: Appropriate affect. Alert and oriented to person, place and time. SKIN: Good skin turgor. Well perfused. - Labs CBC & Chem 7: 10/10/17 06:15 10/10/17 06:15 Labs: Abnormal Lab Results - Last 24 Hours (Table) 10/10/17 10/10/17 10/10/17 Range/Units 10:54 16:42 20:49 ESR 46 H (0-20) mm/hr PT (9.0-12.0) sec INR (<1.2) POC Glucose (mg/dL) 101 H 115 H (75-99) mg/dL 10/11/17 10/11/17 Range/Units 06:50 11:02 ESR (0-20) mm/hr PT 13.4 H (9.0-12.0) sec INR 1.4 H (<1.2) POC Glucose (mg/dL) 120 H (75-99) mg/dL Microbiology - Last 24 Hours (Table) 10/09/17 09:40 Stool Culture - Preliminary Stool 10/08/17 19:05 Blood Culture - Preliminary Blood No Growth after 48 hours Assessment and Plan Plan: Assessment 1 acute febrile illness with some vague abdominal pain/discomfort in addition to chills and feeling sick. The workup has been negative thus far including the CAT scan of the chest abdomen and pelvis. Blood work has been negative for now and the patient has not have any major abnormalities in the blood and urine tests with the exception of some mild elevation of the liver function tests. We may be dealing with an acute viral illness. Influenza and he has been negative. Possible EBV versus CMV infection. Other sources of septicemia cannot be completely ruled out. 2 abnormal liver function tests, patient is status post cholecystectomy. 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 PT/INR is subtherapeutic 6 generalized anxiety disorder/depression 7 diabetes mellitus 8 hyperlipidemia 9 obstructive sleep apnea currently receiving no treatment Plan All of the patient's symptoms have recovered. The patient can be discharged home today. She is tolerating her diet. Viral titers including EBV and CMV are pending. It's likely that the patient had a transient bacteremia or a viral anemia which could be also food related. She is back to her normal. She can be discharged home to be maintained on Coumadin on outpatient basis and she needs to contact me in the office for PT/INR to be adjusted.
== END 2017-10-11 15:00 | disposition home or self-care (01) | DRG 392 ==
LOC: EC 18:21 → 3SUR 23:28 → OBSVTOIN 10-10 13:16
PROVIDERS: ADMIT Surgery; ATTEND Surgery
DX: A08.4 Viral intestinal infection, unspecified (principal); D61.818 Other pancytopenia; K75.9 Inflammatory liver disease, unspecified; K52.0 Gastroenteritis and colitis due to radiation; J98.11 Atelectasis; E11.9 Type 2 diabetes mellitus without complications; E78.5 Hyperlipidemia, unspecified; F41.0 Panic disorder [episodic paroxysmal anxiety]; F41.9 Anxiety disorder, unspecified; M54.2 Cervicalgia; F32.9 Major depressive disorder, single episode, unspecified; F41.1 Generalized anxiety disorder; G47.33 Obstructive sleep apnea (adult) (pediatric); G89.29 Other chronic pain; K57.90 Diverticulosis of intestine, part unspecified, without perforation or abscess without bleeding; Y84.2 Radiological procedure and radiotherapy as the cause of abnormal reaction of the patient, or of later complication, without mention of misadventure at the time of the procedure; M19.90 Unspecified osteoarthritis, unspecified site; I10 Essential (primary) hypertension; K21.9 Gastro-esophageal reflux disease without esophagitis; M54.9 Dorsalgia, unspecified; Z79.01 Long term (current) use of anticoagulants; Z79.84 Long term (current) use of oral hypoglycemic drugs; Z79.899 Other long term (current) drug therapy; Z88.2 Allergy status to sulfonamides; Z86.718 Personal history of other venous thrombosis and embolism; Z86.711 Personal history of pulmonary embolism; I25.2 Old myocardial infarction; Z85.41 Personal history of malignant neoplasm of cervix uteri; Z98.890 Other specified postprocedural states; Z90.49 Acquired absence of other specified parts of digestive tract; Z98.51 Tubal ligation status; Z85.89 Personal history of malignant neoplasm of other organs and systems; Z92.21 Personal history of antineoplastic chemotherapy; Z92.3 Personal history of irradiation; Z98.1 Arthrodesis status
CPT/HCPCS: 36415; 71275; 74177; 76770; 76830; 80053; 80074; 81001; 81025; 82150; 82248; 82550; 83036; 83605; 83690; 85025; 85610; 85652; 85730; 86140; 86644; 86645; 86663; 86664; 86665; 87040; 87045; 87046; 87086; 87502; 93970; 96361; 96365; 96375; 96376; 99285

== ENCOUNTER → 2017-10-17 | Outpatient (CLI) | payer BC ==
[2017-10-17 10:13] LABS: Basophils % (A) 1 %; Eosinophils # (A) 0.1 k/uL (0-0.7); Eosinophils % (A) 4 %; HCT 37.2 % (34.0-46.0); HGB 11.9 gm/dL (11.4-16.0); Lymphocytes # (A) 0.7 k/uL (1.0-4.8); Lymphocytes % (A) 22 %; MCH 26.5 pg (25.0-35.0); MCV 82.9 fL (80.0-100.0); Mean Platelet Volume 8.6; Monocytes # (A) 0.2 k/uL (0-1.0); Monocytes % (A) 5 %; Neutrophils # (A) 2.1 k/uL (1.3-7.7); Neutrophils % (A) 65 %; Platelet Count 214 k/uL (150-450); RBC 4.49 m/uL (3.80-5.40); RDW 14.3 % (11.5-15.5); WBC 3.1 k/uL (3.8-10.6)
[2017-10-17 10:43] LABS: Albumin 4.3 g/dL (3.5-5.0); Calcium 10.8 mg/dL (8.4-10.2); Total Bilirubin 0.3 mg/dL (0.2-1.3); Total Protein 7.1 g/dL (6.3-8.2)
[2017-10-17 10:56] LABS: T4, Free (Free Thyroxine) 1.07 ng/dL (0.78-2.19)
[2017-10-17 11:16] LABS: Erythrocyte Sedimentation Rate 33 mm/hr (0-20)
[2017-10-17 17:38] LABS: Rheumatoid Factor 4 IU/mL (0-15)
== END ==
LOC: LABWHC1 09:42
PROVIDERS: ATTEND Internal Medicine Critical Care Medicine
DX: C53.9 Malignant neoplasm of cervix uteri, unspecified (principal); E11.9 Type 2 diabetes mellitus without complications; E66.9 Obesity, unspecified; E03.9 Hypothyroidism, unspecified; E78.5 Hyperlipidemia, unspecified; R50.9 Fever, unspecified
CPT/HCPCS: 36415; 80053; 82550; 84439; 84443; 85025; 85652; 86038; 86431

== ENCOUNTER → 2017-11-09 | Outpatient (CLI) | payer BC ==
[2017-11-09 08:40] LABS: Cholesterol 269 mg/dL (<200); HDL Cholesterol 56 mg/dL (40-60); LDL Cholesterol,Calculated 165 mg/dL (0-99); Triglycerides 240 mg/dL (<150)
== END | disposition home or self-care (01) ==
LOC: LABWHC1 07:51
PROVIDERS: ATTEND Internal Medicine Critical Care Medicine
DX: E78.5 Hyperlipidemia, unspecified (principal)
CPT/HCPCS: 36415; 80061

== ENCOUNTER → 2017-11-10 | Outpatient (CLI) | payer BC ==
--- NOTE | 2017-11-11 08:59 | NM ---
EXAMINATION TYPE: NM parathyroid w/ SPECT DATE OF EXAM: 11/10/2017 COMPARISON: NONE HISTORY: 47-year-old female with hypercalcemia, fatigue, bone soreness. TECHNIQUE: Following administration of 25.5 mCi Tc99m Sestamibi. Anterior projection images of the neck and ches t were obtained 10 minutes and 3 hours post injection. SPECT images of the neck and chest were obtai catie and reconstructed in three axes. FINDINGS: Thyroid tracer washout: Delayed images demonstrate complete to near complete tracer washout from the thyroid. Parathyroid uptake: None. The 3 hour delayed images do not demonstrate any focal abnormal persistent uptake in the region of the parathyroid glands to suggest parathyroid adenoma. Normal uptake: There is physiological tracer uptake in the myocardium, salivary glands, and thyroid g land. IMPRESSION: No scintigraphic evidence for parathyroid adenoma.
== END | disposition home or self-care (01) ==
LOC: RADNMMAIN 11:28
PROVIDERS: ATTEND Internal Medicine Critical Care Medicine
DX: E83.52 Hypercalcemia (principal)
CPT/HCPCS: 78071; A9500

== ENCOUNTER → 2018-08-10 | Outpatient (CLI) | payer BC ==
[2018-08-10 13:25] LABS: Basophils % (A) 1 %; Eosinophils # (A) 0.1 k/uL (0-0.7); Eosinophils % (A) 2 %; HCT 40.5 % (34.0-46.0); HGB 12.9 gm/dL (11.4-16.0); Lymphocytes # (A) 0.8 k/uL (1.0-4.8); Lymphocytes % (A) 26 %; MCH 27.3 pg (25.0-35.0); MCHC 31.9 g/dL (31.0-37.0); MCV 85.6 fL (80.0-100.0); Mean Platelet Volume 7.5; Monocytes # (A) 0.2 k/uL (0-1.0); Monocytes % (A) 6 %; Neutrophils # (A) 2.1 k/uL (1.3-7.7); Neutrophils % (A) 64 %; Platelet Count 155 k/uL (150-450); RBC 4.73 m/uL (3.80-5.40); RDW 14.8 % (11.5-15.5); WBC 3.3 k/uL (3.8-10.6)
[2018-08-10 13:33] LABS: INR 1.8 (<1.2); Prothrombin Time 17.5 sec (9.0-12.0)
[2018-08-10 17:52] LABS: Parathyroid Hormone Intact 78.1 pg/mL (14.0-72.0)
[2018-08-10 18:09] LABS: Albumin 4.5 g/dL (3.80-4.90); Albumin/Globulin Ratio 2.14 (1.20-2.10); Anion Gap 7.7 mmol/L (4.00-12.00); Calcium 10.4 mg/dL (8.7-10.3); Carbon Dioxide 27.3 mmol/L (21.6-31.8); Globulin 2.1 g/dL (1.6-3.3); LDL Cholesterol,Calculated 177.6 mg/dL (0.0-131.0); Phosphorus 2.9 mg/dL (2.4-5.1); Potassium 4.7 mmol/L (3.5-5.5); Total Bilirubin 0.3 mg/dL (0.3-1.2); Total Protein 6.6 g/dL (6.2-8.2); VLDL Calculation 53.4 mg/dL (5.00-40.00)
[2018-08-10 18:10] LABS: Vitamin D 25 Hydroxy 18.8 ng/mL (30.0-100.0)
[2018-08-10 18:17] LABS: T4, Free (Free Thyroxine) 1.1 ng/dL (0.80-1.80)
[2018-08-10 19:19] LABS: Hemoglobin A1C 6.2 % (4.0-6.0)
== END | disposition home or self-care (01) ==
LOC: LABWHC1 12:25
PROVIDERS: ATTEND Internal Medicine Critical Care Medicine
DX: E78.5 Hyperlipidemia, unspecified (principal); E21.0 Primary hyperparathyroidism; E04.1 Nontoxic single thyroid nodule
CPT/HCPCS: 36415; 80053; 80061; 82306; 83036; 83970; 84100; 84439; 84443; 85025; 85610

== ENCOUNTER → 2018-08-14 | Outpatient (CLI) | payer BC ==
--- NOTE | 2018-08-14 14:33 | PE ---
EXAMINATION TYPE: PET CT fusion skull to thigh DATE OF EXAM: 08/14/2018 COMPARISON: NONE HISTORY: History of cervical cancer treated with surgery as well as chemotherapy and radiation treatm ent in 2016. TECHNIQUE: Following the intravenous administration of 11.81 mCi of F-18 FDG, whole body images are performed from the skull base to the midthigh. Images are reviewed on the computer in the coronal, a xial, and sagittal planes. Reconstructed rotating images are created on independent workstation and reviewed on the computer. A noncontrast CT is performed in conjunction with the PET scan. SCAN: CTA chest and CT abdomen and pelvis October 08, 2017 FINDINGS: SKULL BASE AND NECK: No suspicious hypermetabolic uptake is present. CHEST, MEDIASTINUM, AND HILAR REGION: No suspicious hypermetabolic uptake is seen. ABDOMEN AND PELVIS: Normal excretion is identified. Mild uptake right-sided bowel loops could reflect mild colitis, correlate clinically. No suspicious hypermetabolic uptake or adenopathy identified. OSSEOUS STRUCTURES: No suspicious hypermetabolic uptake is seen. OTHER CT: Cholecystectomy clips are redemonstrated. Liver is diffusely low dense consistent with fatt y infiltration. There is facet arthropathy in the mid to lower lumbar spine. Scattered pelvic phleboliths are present . IMPRESSION: No suspicious hypermetabolic uptake is seen to suggest recurrent or metastatic malignancy .
== END | disposition home or self-care (01) ==
LOC: RADPETMAIN 10:55
PROVIDERS: ATTEND Internal Medicine Critical Care Medicine
DX: C53.8 Malignant neoplasm of overlapping sites of cervix uteri (principal); E11.9 Type 2 diabetes mellitus without complications; Z92.3 Personal history of irradiation; Z92.21 Personal history of antineoplastic chemotherapy
CPT/HCPCS: 78815; A9552

== ENCOUNTER → 2018-09-10 | Outpatient (CLI) | payer BC ==
--- NOTE | 2018-09-10 17:57 | US ---
EXAMINATION TYPE: US thyroid st tissue head/neck DATE OF EXAM: 09/10/2018 COMPARISON: NM parathyroid CLINICAL HISTORY: E21.0 PRIMARY HYPERPARATHYROIDISM. Hypercalcemia per patient; HX of CA cervix GLAND SIZE: Right Lobe: 3.8 x 1.7 x 1.7 cm Overall Parenchyma: heterogenous and lobular borders noted Left Lobe: 3.7 x 1.8 x 2.3 cm Overall Parenchyma: heterogeneous and lobular borders are seen Isthmus Thickness: 0.3 cm NODULES RIGHT: # of nodules measured on right: 1 1. 0.3 X 0.3 x 0.2 cm hypoechoic cystic nodule at the upper pole with well-defined margins. This n odule is and shows . LEFT: # of nodules measured on left: 2 1. 1.8 X 1.4 x 1.3 cm isoechoic mixed nodule at the lower pole with well-defined margins. This nod ule is wider than tall and shows intranodular vascularity. 2. 0.7 X 0.6 x 0.5 cm isoechoic mixed nodule at the mid pole with well-defined margins. This nodule is wider than tall and shows intranodular vascularity. ISTHMUS: # of nodules measured in the isthmus: 0 Bilateral neck scanned: no evidence of lymphadenopathy. Inferior to left thyroid a hypoechoic, solid, possible parathyroid nodule is seen = 0.9 x 0.9 x 0.9cm . IMPRESSION: 1. There is an enlarged left lobe thyroid nodule measuring greater than 1 cm. 2. Inferior to the left thyroid lobe there is a 0.9 cm nodular density likely represents a parathyroi d.
--- NOTE | 2018-09-10 21:12 | BD ---
EXAMINATION TYPE: Axial Bone Density DATE OF EXAM: 09/10/2018 COMPARISON: NONE CLINICAL HISTORY: 48 YR OLD FEMALE....ICD-10 CODE: E21.0 PRIMARY HYPERPARATHYROIDISM : DENIES, HX OF CERVICAL CA 2014 Height: 64 Weight: 226 FRAX RISK QUESTIONS: 3. Menopause before 45: AT 45 RISK FACTORS HISTORY OF: HX OF TOE FRACTURES AN ADULT....PT IS 48 YRS OLD Surgery to Spine TRIMMED DISCS ONLY, AND PAIN INJECTIONS....NOTHING ON BONE Family History of Osteoporosis: YES, HER MOTHER, NO FX OF HIP Active: YES Postmenopausal woman: CHEMO AND RADIATION TO CERVEX...AT AGE 45 Hyperparathyroidism: YES MEDICATIONS: Additional Medications: HX OF CHEMO AND RADIATION, ZOLOFT, XANAX, BP MEDS, HEART MEDS, NORCO, NSAIDS, REFLUX MEDS, WARAFIN, Additional History: HX OF BLOOD CLOTS, CERVICAL CA, BACK PAIN, REFLUX, HX OF PANCREATITIS, AND SEPSIS EXAM MEASUREMENTS: Bone mineral densitometry was performed using the [employer] System. Bone mineral density as measured about the Lumbar spine is: ----- L1-L4(G/cm2): 1.129 T Score Values are as follows: ----- L1: 0.2 ----- L2: -0.7 ----- L3: -0.5 ----- L4: -0.8 ----- L1-L4: -0.4 Bone mineral density FIRST BONE DENSITY SCAN......BASELINE STUDY Bone mineral density about the R hip (g/cm2): 0.987 Bone mineral density about the L hip (g/cm2): 0.995 T Score values are as follows: -----R Neck: -1.2 -----L Neck: -0.9 -----R Total: -0.2 -----L Total: -0.1 Bone mineral density BASELINE STUDY FRAX%s: THERE IS A 3.3% CHANCE FOR A MAJOR OSTEOPOROTIC FX AND A 0.2% FOR HIP.....PROBABILITY OF F X IN 10 YRS TIME IMPRESSION: Osteopenia (T Score between -2.5 and -1). There is slightly increased risk of fracture and the patient may be considered for treatment. Re-Screen 2-5 years. NOTE: T-SCORE=SD OF THE YOUNG ADULT MEAN.
== END ==
LOC: RADBDWWP 13:45
PROVIDERS: ATTEND Internal Medicine Endocrinology, Diabetes & Metabolism
DX: M85.80 Other specified disorders of bone density and structure, unspecified site (principal); E04.1 Nontoxic single thyroid nodule
CPT/HCPCS: 76536; 77080

== ENCOUNTER 2018-10-29 13:42 | Emergency (ER) | payer BC ==
[2018-10-29] MEDS ORDERED: SODIUM CHLORIDE 0.9% 1,000 ML IV STA (13:57)
[2018-10-29] MEDS ORDERED: ONDANSETRON 4 MG/2 ML VIAL IVP STA (13:57)
[2018-10-29 14:45] LABS: Basophils % (A) 0 %; Eosinophils # (A) 0.1 k/uL (0-0.7); Eosinophils % (A) 1 %; HCT 41.5 % (34.0-46.0); HGB 13.9 gm/dL (11.4-16.0); Lymphocytes # (A) 0.4 k/uL (1.0-4.8); Lymphocytes % (A) 8 %; MCH 28.2 pg (25.0-35.0); MCHC 33.6 g/dL (31.0-37.0); MCV 84.1 fL (80.0-100.0); Mean Platelet Volume 7.7; Monocytes # (A) 0.2 k/uL (0-1.0); Monocytes % (A) 3 %; Neutrophils # (A) 3.9 k/uL (1.3-7.7); Neutrophils % (A) 86 %; Platelet Count 166 k/uL (150-450); RBC 4.93 m/uL (3.80-5.40); RDW 14.3 % (11.5-15.5); WBC 4.6 k/uL (3.8-10.6)
[2018-10-29 14:56] LABS: ALT 111 U/L (9-52); AST 85 U/L (14-36); Albumin 4.3 g/dL (3.5-5.0); Alkaline Phosphatase 79 U/L (38-126); Amylase <30 U/L (30-110); Anion Gap 13 mmol/L; Blood Urea Nitrogen 20 mg/dL (7-17); Calcium 9.4 mg/dL (8.4-10.2); Carbon Dioxide 20 mmol/L (22-30); Chloride 104 mmol/L (98-107); Glucose 133 mg/dL (74-99); Lipase 68 U/L (23-300); Potassium 3.6 mmol/L (3.5-5.1); Sodium 137 mmol/L (137-145); Total Bilirubin 1.1 mg/dL (0.2-1.3); Total Protein 7.2 g/dL (6.3-8.2)
[2018-10-29] MEDS ORDERED: MORPHINE SULFATE 4 MG/ML SYRINGE IVP STA (14:59)
[2018-10-29] MEDS ORDERED: ACETAMINOPHEN TAB 500 MG TAB PO STA (15:11)
[2018-10-29] MEDS ORDERED: IBUPROFEN 600 MG TAB PO STA (15:11)
--- NOTE | 2018-10-29 15:14 | ED ---
General Adult HPI - General Chief complaint: Nausea/Vomiting/Diarrhea Stated complaint: vomiting/diarrhea-post parathyroid surgery Time Seen by Provider: 10/29/18 13:57 Source: patient, RN notes reviewed, old records reviewed Mode of arrival: ambulatory Limitations: no limitations - History of Present Illness Initial comments: Is a [id number]-year-old female presents emergency Department today with complaints of nausea vomiting and diarrhea for the past 2 days. Patient states that she was having diarrhea and vomiting same time. Patient reports that she had parathyroid surgery approximately one week ago. Was completed at [facility]. Patient is port that she was concerned because she was unable to keep her calcium pills down. dominic complains of some shortness of breath and chest pain. She complains of chills and fever.Patient denies any recent back pain, , numbness or tingling, dysuria or hematuria, constipation , headaches or visual changes, or any other current symptoms. A - Related Data Home Medications Medication Instructions Recorded Confirmed ALPRAZolam [Xanax] 0.5 mg PO Q8H PRN 11/14/13 10/29/18 Hydrocodone/Acetaminophen [[place] 1 - 2 tab PO Q6H PRN 11/14/13 10/29/18 5-325] Omeprazole [PriLOSEC] 20 mg PO DAILY 11/14/13 10/29/18 Sertraline [Zoloft] 200 mg PO DAILY 09/14/15 10/29/18 Warfarin Sodium [Coumadin] 6 mg PO DAILY 11/16/15 10/29/18 Metoprolol Succinate (ER) [Toprol 25 mg PO BID 10/08/17 10/29/18 Xl] Calcium Carb-Vit D 500Mg-200Un 2 tab PO TID 10/29/18 10/29/18 [Oscal 500+D] Ergocalciferol (Vitamin D2) 50,000 unit PO MO 10/29/18 10/29/18 [Drisdol] Previous Rx's Medication Instructions Recorded Loperamide [Imodium] 2 mg PO TID #12 cap 10/29/18 Ondansetron Odt [Zofran Odt] 4 mg PO Q8HR PRN #12 tab 10/29/18 Allergies Allergy/AdvReac Type Severity Reaction Status Date / Time Sulfa (Sulfonamide Allergy Rash/Hives, Verified 10/29/18 14:17 Antibiotics) SHORTNESS OF BREATH Review of Systems ROS Statement: Those systems with pertinent positive or pertinent negative responses have been documented in the HPI. ROS Other: All systems not noted in ROS Statement are negative. 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 Last Myocardial Infarction Date:: 2009 History of Any Multi-Drug Resistant Organisms: None Reported Past Surgical History: Back Surgery, Section, Cholecystectomy, Orthopedic Surgery, Tubal Ligation, Uterine Ablation Additional Past Surgical History / Comment(s): L4-5, L5-S1 LAMINECTOMY WITH DISCECTOMY. , D&C, CONE BX, SYA SLEEVE Past Anesthesia/Blood Transfusion Reactions: Previous Problems w/ Anesthesia Additional Past Anesthesia/Blood Transfusion Reaction / Comment(s): AWAKENED DURING SURGERY X2; SPINAL SINGH POST D&C, HAD BLOOD PATCH, Past Psychological History: Anxiety, Panic Disorder Smoking Status: Never smoker Past Alcohol Use History: None Reported Past Drug Use History: None Reported - Past Family History Mother Family Medical History: No Reported History Additional Family Medical History / Comment(s): no history Father Family Medical History: Cancer General Exam - General Exam Comments Initial Comments: 40-year-old female. Alert and oriented. Limitations: no limitations General appearance: alert, in no apparent distress Head exam: Present: atraumatic, normocephalic, normal inspection Eye exam: Present: normal appearance, PERRL, EOMI. Absent: scleral icterus, co njunctival injection, periorbital swelling ENT exam: Present: normal exam, mucous membranes moist Neck exam: Present: normal inspection. Absent: tenderness, meningismus, lymphadenopathy Respiratory exam: Present: normal lung sounds bilaterally. Absent: respiratory distress, wheezes, rales, rhonchi, stridor Cardiovascular Exam: Present: regular rate, normal rhythm, normal heart sounds. Absent: systolic murmur, diastolic murmur, rubs, gallop, clicks GI/Abdominal exam: Present: soft, tenderness (Right lower quadrant tenderness.), normal bowel sounds. Absent: distended, guarding, rebound, rigid Extremities exam: Present: normal inspection, full ROM, normal capillary refill. Absent: tenderness, pedal edema, joint swelling, calf tenderness Back exam: Present: normal inspection Neurological exam: Present: alert, oriented X3, CN II-XII intact Psychiatric exam: Present: normal affect, normal mood Skin exam: Present: warm, dry, intact, normal color. Absent: rash Course Vital Signs 10/29/18 10/29/18 10/29/18 13:45 14:44 15:13 Temperature 98.2 F 100.8 F H Pulse Rate 101 H 93 Respiratory 24 22 Rate Blood Pressure 112/50 128/82 O2 Sat by Pulse 96 93 L Oximetry 10/29/18 10/29/18 10/29/18 15:34 16:37 17:40 Temperature 99.9 F H Pulse Rate 89 79 80 Respiratory 26 H 20 22 Rate Blood Pressure 115/63 95/64 108/55 O2 Sat by Pulse 99 97 96 Oximetry 10/29/18 10/29/18 19:21 19:49 Temperature 98.1 F Pulse Rate 90 90 Respiratory 16 16 Rate Blood Pressure 93/39 111/54 O2 Sat by Pulse 94 L 93 L Oximetry Medical Decision Making - Medical Decision Making This patient's a 40-year-old female comes in with nausea vomiting diarrhea for the past 2 days. Recent history of thyroid surgery last week. This Patient has some diffuse abdominal tenderness. Patient reports she's been having some chills. Patient was given CT of abdomen and pelvis shows evidence of ileus. Patient's labwork was reviewed and relatively unremarkable. She said multiple episodes of diarrhea. C. diff is negative at this time. She is given 3 L bolus. She is feeling better after evaluation of further vomiting. symptoms are likely viral gastroenteritis. Patient will have stool culture completed. Patient will be discharged home at this time with PCP follow-up. - Lab Data Result diagrams: 10/29/18 14:34 10/29/18 14:34 Lab Results 10/29/18 10/29/18 10/29/18 Range/Units 14:34 14:34 14:34 WBC 4.6 (3.8-10.6) k/uL RBC 4.93 (3.80-5.40) m/uL Hgb 13.9 (11.4-16.0) gm/dL Hct 41.5 (34.0-46.0) % MCV 84.1 (80.0-100.0) fL MCH 28.2 (25.0-35.0) pg MCHC 33.6 (31.0-37.0) g/dL RDW 14.3 (11.5-15.5) % Plt Count 166 (150-450) k/uL Neutrophils % 86 % Lymphocytes % 8 % Monocytes % 3 % Eosinophils % 1 % Basophils % 0 % Neutrophils # 3.9 (1.3-7.7) k/uL Lymphocytes # 0.4 L (1.0-4.8) k/uL Monocytes # 0.2 (0-1.0) k/uL Eosinophils # 0.1 (0-0.7) k/uL Basophils # 0.0 (0-0.2) k/uL Sodium 137 (137-145) mmol/L Potassium 3.6 (3.5-5.1) mmol/L Chloride 104 (98-107) mmol/L Carbon Dioxide 20 L (22-30) mmol/L Anion Gap 13 mmol/L BUN 20 H (7-17) mg/dL Creatinine 1.06 H (0.52-1.04) mg/dL Est GFR (CKD-EPI)AfAm 72 (>60 ml/min/1.73 sqM) Est GFR (CKD-EPI)NonAf 62 (>60 ml/min/1.73 sqM) Glucose 133 H (74-99) mg/dL Lactic Ac Sepsis Rflx Plasma Lactic Acid Trevor (0.7-2.0) mmol/L Calcium 9.4 (8.4-10.2) mg/dL Total Bilirubin 1.1 (0.2-1.3) mg/dL AST 85 H (14-36) U/L ALT 111 H (9-52) U/L Alkaline Phosphatase 79 (38-126) U/L Troponin I <0.012 (0.000-0.034) ng/mL Total Protein 7.2 (6.3-8.2) g/dL Albumin 4.3 (3.5-5.0) g/dL Amylase <30 L (30-110) U/L Lipase 68 (23-300) U/L Urine Color Urine Appearance (Clear) Urine pH (5.0-8.0) Urine Protein (Negative) Urine Glucose (UA) (Negative) Urine Ketones (Negative) Urine Blood (Negative) Urine Nitrite (Negative) Urine Bilirubin (Negative) Urine Urobilinogen (<2.0) mg/dL Ur Leukocyte Esterase (Negative) C. difficile (EIA) Intrp (Negative) 10/29/18 10/29/18 10/29/18 Range/Units 15:37 16:18 17:45 WBC (3.8-10.6) k/uL RBC (3.80-5.40) m/uL Hgb (11.4-16.0) gm/dL Hct (34.0-46.0) % MCV (80.0-100.0) fL MCH (25.0-35.0) pg MCHC (31.0-37.0) g/dL RDW (11.5-15.5) % Plt Count (150-450) k/uL Neutrophils % % Lymphocytes % % Monocytes % % Eosinophils % % Basophils % % Neutrophils # (1.3-7.7) k/uL Lymphocytes # (1.0-4.8) k/uL Monocytes # (0-1.0) k/uL Eosinophils # (0-0.7) k/uL Basophils # (0-0.2) k/uL Sodium (137-145) mmol/L Potassium (3.5-5.1) mmol/L Chloride (98-107) mmol/L Carbon Dioxide (22-30) mmol/L Anion Gap mmol/L BUN (7-17) mg/dL Creatinine (0.52-1.04) mg/dL Est GFR (CKD-EPI)AfAm (>60 ml/min/1.73 sqM) Est GFR (CKD-EPI)NonAf (>60 ml/min/1.73 sqM) Glucose (74-99) mg/dL Lactic Ac Sepsis Rflx Y Plasma Lactic Acid Trevor 2.2 H* (0.7-2.0) mmol/L Calcium (8.4-10.2) mg/dL Total Bilirubin (0.2-1.3) mg/dL AST (14-36) U/L ALT (9-52) U/L Alkaline Phosphatase (38-126) U/L Troponin I (0.000-0.034) ng/mL Total Protein (6.3-8.2) g/dL Albumin (3.5-5.0) g/dL Amylase (30-110) U/L Lipase (23-300) U/L Urine Color Urine Appearance (Clear) Urine pH (5.0-8.0) Urine Protein (Negative) Urine Glucose (UA) (Negative) Urine Ketones (Negative) Urine Blood (Negative) Urine Nitrite (Negative) Urine Bilirubin (Negative) Urine Urobilinogen (<2.0) mg/dL Ur Leukocyte Esterase (Negative) C. difficile (EIA) Intrp Negative (Negative) 10/29/18 10/29/18 Range/Units 19:35 19:35 WBC (3.8-10.6) k/uL RBC (3.80-5.40) m/uL Hgb (11.4-16.0) gm/dL Hct (34.0-46.0) % MCV (80.0-100.0) fL MCH (25.0-35.0) pg MCHC (31.0-37.0) g/dL RDW (11.5-15.5) % Plt Count (150-450) k/uL Neutrophils % % Lymphocytes % % Monocytes % % Eosinophils % % Basophils % % Neutrophils # (1.3-7.7) k/uL Lymphocytes # (1.0-4.8) k/uL Monocytes # (0-1.0) k/uL Eosinophils # (0-0.7) k/uL Basophils # (0-0.2) k/uL Sodium (137-145) mmol/L Potassium (3.5-5.1) mmol/L Chloride (98-107) mmol/L Carbon Dioxide (22-30) mmol/L Anion Gap mmol/L BUN (7-17) mg/dL Creatinine (0.52-1.04) mg/dL Est GFR (CKD-EPI)AfAm (>60 ml/min/1.73 sqM) Est GFR (CKD-EPI)NonAf (>60 ml/min/1.73 sqM) Glucose (74-99) mg/dL Lactic Ac Sepsis Rflx Plasma Lactic Acid Trevor 1.1 (0.7-2.0) mmol/L Calcium (8.4-10.2) mg/dL Total Bilirubin (0.2-1.3) mg/dL AST (14-36) U/L ALT (9-52) U/L Alkaline Phosphatase (38-126) U/L Troponin I (0.000-0.034) ng/mL Total Protein (6.3-8.2) g/dL Albumin (3.5-5.0) g/dL Amylase (30-110) U/L Lipase (23-300) U/L Urine Color Yellow Urine Appearance Clear (Clear) Urine pH 6.0 (5.0-8.0) Urine Protein Trace H (Negative) Urine Glucose (UA) Negative (Negative) Urine Ketones Negative (Negative) Urine Blood Negative (Negative) Urine Nitrite Negative (Negative) Urine Bilirubin Negative (Negative) Urine Urobilinogen <2.0 (<2.0) mg/dL Ur Leukocyte Esterase Negative (Negative) C. difficile (EIA) Intrp (Negative) 10/29/18 17:42 EKG shows normal sinus rhythms considering anterior ischemia, abnormal EKG noted. Ventricular rate of 86 bpm. Nose and 20 ms. QRS duration is 82 ms. QT QTC 370/452 ms. - Radiology Data Radiology results: report reviewed Findings compatible with some mild ileus. No obstruction evident. Tender nodule in the right lower lobe present previously. Lytic lesion not excluded region of T12 on the right. Moderate fatty infiltration of the liver. Normal chest x-ray. Disposition Clinical Impression: Gastroenteritis Disposition: HOME SELF-CARE Condition: Good Instructions (If sedation given, give patient instructions): Acute Nausea and Vomiting (ED) Additional Instructions: Follow-up with primary care doctor. Return to emergency department if any alarming signs or symptoms occur. Does have a clear liquid diet and have a bland foods such as crackers. Prescriptions: Loperamide [Imodium] 2 mg PO TID #12 cap Ondansetron Odt [Zofran Odt] 4 mg PO Q8HR PRN #12 tab PRN Reason: Nausea Is patient prescribed a controlled substance at d/c from ED?: No Referrals: Lobo Max MD [Primary Care Provider] - 1-2 days Time of Disposition: 20:21
[2018-10-29] MEDS ORDERED: SODIUM CHLORIDE 0.9% 1,000 ML IV ONE ×2 (16:25→17:32)
--- NOTE | 2018-10-29 16:30 | CT ---
EXAMINATION TYPE: CT abdomen pelvis w con DATE OF EXAM: 10/29/2018 COMPARISON: PET/CT 08/14/2018 INDICATION: Nausea, vomiting and diarrhea x 24 hours. Parathyroid removed 1 week ago. Abnormal calciu m levels. DLP: 1335.4 mGycm, Automated exposure control for dose reduction was used. CONTRAST: 100 mL of Isovue 300. Study performed without Oral Contrast TECHNIQUE: Axial images were obtained from above the diaphragm to the pubic rami in the axial plane a t 5 mm thick sections. Reconstructed images are reviewed on the computer in the coronal plane. FINDINGS: Limited CT sections are obtained the lung bases. There is a 0.2 cm nodule in the anterior lateral ri ght middle lobe. Series 201 image 2. Some streak opacities in the left lower lobe may be some atelect asis. CT ABDOMEN: Liver: There is moderate fatty infiltration to the liver. No discrete masses are evident. Spleen: Normal Pancreas: Normal Adrenal glands: The adrenal glands are normal. Gallbladder: Surgically absent Kidneys: No masses are evident. No hydronephrosis is present. There is a 0.7 cm cortical renal cyst on the left kidney. This is too small to classify as simple. Delayed images were obtained through t he kidneys, which remain unremarkable. Aorta: Vascular calcification is within the aorta. Inferior vena cava: Normal. CT PELVIS: Loops of bowel within the abdomen and pelvis are normal. Loops of bowel are without oral contrast limiting their evaluation. Fluid within small bowel loops suggests the possibility of ileus. Appendix: Normal as visualized. Urinary bladder: Partially decompressed with limited evaluation. Genitourinary structures: Uterus appears unremarkable. Adnexal regions are clear. Osseous structures: There is a small sclerotic area within the greater trochanter. Sclerotic metastas is in a bone island could be considered. Tiny bone island may be within the L4 vertebral body. There is some osseous changes within the T12 vertebral level on the right extending into the pedicle. Metas tatic lesion is not excluded. However, this area is not clearly abnormal on the PET/CT. IMPRESSIONS: 1. Findings could be compatible some mild ileus. No obstruction is evident. 2. Tiny nodule within the right middle lobe present previously. 3. Lytic lesion is not excluded in the region of T12 on the right. 4. Moderate fatty infiltration of liver.
--- NOTE | 2018-10-29 17:19 | XR ---
EXAMINATION TYPE: XR chest 2V DATE OF EXAM: 10/29/2018 CLINICAL HISTORY: Pain TECHNIQUE: Frontal and lateral views of the chest are obtained. COMPARISON: September 18, 2015 FINDINGS: There is no focal air space opacity, pleural effusion, or pneumothorax seen. The cardiac silhouette size is within normal limits. The osseous structures are intact. IMPRESSION: No acute cardiopulmonary process.
[2018-10-29 19:23] VITALS: TEMP 98.1
[2018-10-29 20:00] LABS: Appearance,Urine Clear (Clear); Bilirubin,Urine Negative (Negative); Blood,Urine Negative (Negative); Color,Urine Yellow; Glucose,Urine (UA) Negative (Negative); Ketones,Urine Negative (Negative); Leukocyte Esterase,Urine Negative (Negative); Nitrite,Urine Negative (Negative); Protein,Urine Trace (Negative); Urobilinogen,Urine <2.0 mg/dL (<2.0)
[2018-10-29 20:38] LABS: Specific Gravity,Urine >1.050 (1.001-1.035)
[2018-10-29 20:50] VITALS: BP 99/55; PULSE 81; RESP 18
== END 2018-10-29 20:50 | disposition home or self-care (01) ==
LOC: EC 13:42
DX: K52.9 Noninfective gastroenteritis and colitis, unspecified (principal); K21.9 Gastro-esophageal reflux disease without esophagitis; I25.2 Old myocardial infarction; I10 Essential (primary) hypertension; F41.0 Panic disorder [episodic paroxysmal anxiety]; Z86.718 Personal history of other venous thrombosis and embolism; Z86.711 Personal history of pulmonary embolism; Z85.41 Personal history of malignant neoplasm of cervix uteri; Z79.01 Long term (current) use of anticoagulants; Z79.899 Other long term (current) drug therapy; Z88.2 Allergy status to sulfonamides; Z90.49 Acquired absence of other specified parts of digestive tract
CPT/HCPCS: 36415; 71046; 74177; 80053; 81003; 82150; 83605; 83690; 84484; 85025; 87040; 87324; 93005; 96361; 96374; 96375; 99285

== ENCOUNTER 2018-11-04 18:54 | Emergency (ER) | payer BC ==
[2018-11-04] MEDS ORDERED: SODIUM CHLORIDE 0.9% 1,000 ML IV ONE (19:13)
--- NOTE | 2018-11-04 19:42 | ED ---
Altered Mental Status HPI - General Chief Complaint: Altered Mental Status Stated Complaint: Poss medication reaction Time Seen by Provider: 11/04/18 19:13 Source: patient, RN notes reviewed, old records reviewed Mode of arrival: wheelchair Limitations: no limitations - History of Present Illness Initial Comments: This is a 40-year-old female the ER for evaluation. Patient is 2 weeks postoperative thyroid surgery. Calcium and a liquid supplementation. Patient had difficulty with activity today, hands cramping, Complaint: weakness -: hour(s) Severity: moderate Consistency of Symptoms: getting worse Context: history of similar presentation Associated Symptoms: denies other symptoms - Related Data Home Medications Medication Instructions Recorded Confirmed ALPRAZolam [Xanax] 0.5 mg PO Q8H PRN 11/14/13 11/04/18 Hydrocodone/Acetaminophen [[place] 1 - 2 tab PO Q6H PRN 11/14/13 11/04/18 5-325] Omeprazole [PriLOSEC] 20 mg PO DAILY 11/14/13 11/04/18 Sertraline [Zoloft] 200 mg PO DAILY 09/14/15 11/04/18 Warfarin Sodium [Coumadin] 6 mg PO DAILY 11/16/15 11/04/18 Metoprolol Succinate (ER) [Toprol 25 mg PO BID 10/08/17 11/04/18 Xl] Calcium Carb-Vit D 500Mg-200Un 2 tab PO TID 10/29/18 11/04/18 [Oscal 500+D] Ergocalciferol (Vitamin D2) 50,000 unit PO MO 10/29/18 11/04/18 [Drisdol] Allergies Allergy/AdvReac Type Severity Reaction Status Date / Time Sulfa (Sulfonamide Allergy Rash/Hives, Verified 11/04/18 19:19 Antibiotics) SHORTNESS OF BREATH Review of Systems ROS Statement: Those systems with pertinent positive or pertinent negative responses have been documented in the HPI. ROS Other: All systems not noted in ROS Statement are negative. Past Medical History Past Medical History: Cancer, Chest Pain / Angina, Diabetes Mellitus, Deep Vein Thrombosis (DVT), GERD/Reflux, Hyperlipidemia, Myocardial Infarction ([place]), Pulmonary Embolus (PE) Additional Past Medical History / Comment(s): Recurrent DVT and previous history of massive pulmonary embolism maintained on lifelong antibiotic ventilation with Coumadin, cervical cancer post-chemoradiation therapy, hypertension, hyperlipidemia, acid reflux, anxiety, chronic back pain and neck pain, history of pancreatitis 2 post cholecystectomy, degenerative arthritis, previous laminectomy and lumbar spine fusion. Last Myocardial Infarction Date:: 2009 History of Any Multi-Drug Resistant Organisms: None Reported Past Surgical History: Back Surgery, Section, Cholecystectomy, Orthopedic Surgery, Tubal Ligation, Uterine Ablation Additional Past Surgical History / Comment(s): L4-5, L5-S1 LAMINECTOMY WITH DISCECTOMY. , D&C, [facility] BX, SAY SLEEVE Past Anesthesia/Blood Transfusion Reactions: Previous Problems w/ Anesthesia Additional Past Anesthesia/Blood Transfusion Reaction / Comment(s): AWAKENED DURING SURGERY X2; SPINAL SINGH POST D&C, HAD BLOOD PATCH, Past Psychological History: Anxiety, Panic Disorder Smoking Status: Never smoker Past Alcohol Use History: None Reported Past Drug Use History: None Reported - Past Family History Mother Family Medical History: No Reported History Additional Family Medical History / Comment(s): no history Father Family Medical History: Cancer General Exam - General Exam Comments Initial Comments: carpopedal spasm Limitations: no limitations General appearance: alert, in no apparent distress Head exam: Present: atraumatic, normocephalic, normal inspection Eye exam: Present: normal appearance, PERRL, EOMI. Absent: scleral icterus, conjunctival injection, periorbital swelling ENT exam: Present: normal exam, mucous membranes moist Neck exam: Present: normal inspection. Absent: tenderness, meningismus, lymphadenopathy Respiratory exam: Present: normal lung sounds bilaterally. Absent: respiratory distress, wheezes, rales, rhonchi, stridor Cardiovascular Exam: Present: regular rate, normal rhythm, normal heart sounds. Absent: systolic murmur, diastolic murmur, rubs, gallop, clicks GI/Abdominal exam: Present: soft, normal bowel sounds. Absent: distended, tenderness, guarding, rebound, rigid Extremities exam: Present: normal inspection, full ROM, normal capillary refill. Absent: tenderness, pedal edema, joint swelling, calf tenderness Back exam: Present: normal inspection Neurological exam: Present: alert, oriented X3, CN II-XII intact Psychiatric exam: Present: normal affect, normal mood Skin exam: Present: warm, dry, intact, normal color. Absent: rash Course Vital Signs 11/04/18 18:59 Temperature 98.7 F Pulse Rate 67 Respiratory 18 Rate Blood Pressure 123/73 O2 Sat by Pulse 97 Oximetry Medical Decision Making - Lab Data Result diagrams: 11/04/18 19:36 11/04/18 19:36 Lab Results 11/04/18 11/04/18 11/04/18 Range/Units 19:36 19:36 19:36 WBC 4.2 (3.8-10.6) k/uL RBC 4.27 (3.80-5.40) m/uL Hgb 11.8 (11.4-16.0) gm/dL Hct 35.8 (34.0-46.0) % MCV 83.9 (80.0-100.0) fL MCH 27.6 (25.0-35.0) pg MCHC 32.9 (31.0-37.0) g/dL RDW 14.2 (11.5-15.5) % Plt Count 163 (150-450) k/uL Neutrophils % 69 % Lymphocytes % 25 % Monocytes % 3 % Eosinophils % 2 % Basophils % 0 % Neutrophils # 2.9 (1.3-7.7) k/uL Lymphocytes # 1.0 (1.0-4.8) k/uL Monocytes # 0.1 (0-1.0) k/uL Eosinophils # 0.1 (0-0.7) k/uL Basophils # 0.0 (0-0.2) k/uL PT (9.0-12.0) sec INR (<1.2) APTT (22.0-30.0) sec VBG pH (7.31-7.41) VBG pCO2 (37-51) mmHg VBG HCO3 (24-28) mmol/L Sodium 141 (137-145) mmol/L Potassium 3.5 (3.5-5.1) mmol/L Chloride 107 (98-107) mmol/L Carbon Dioxide 25 (22-30) mmol/L Anion Gap 9 mmol/L BUN 10 (7-17) mg/dL Creatinine 0.95 (0.52-1.04) mg/dL Est GFR (CKD-EPI)AfAm 82 (>60 ml/min/1.73 sqM) Est GFR (CKD-EPI)NonAf 72 (>60 ml/min/1.73 sqM) Glucose 96 (74-99) mg/dL Calcium 7.9 L (8.4-10.2) mg/dL Ionized Calcium Mary 4.1 L (4.5-5.3) mg/dL Phosphorus 1.8 L (2.5-4.5) mg/dL Magnesium 1.3 L (1.6-2.3) mg/dL Total Bilirubin 0.3 (0.2-1.3) mg/dL AST 26 (14-36) U/L ALT 45 (9-52) U/L Alkaline Phosphatase 65 (38-126) U/L Ammonia <9 (<30) umol/L Creatine Kinase 48 (30-135) U/L Troponin I (0.000-0.034) ng/mL Total Protein 6.3 (6.3-8.2) g/dL Albumin 3.8 (3.5-5.0) g/dL 11/04/18 11/04/18 11/04/18 Range/Units 19:36 19:36 19:57 WBC (3.8-10.6) k/uL RBC (3.80-5.40) m/uL Hgb (11.4-16.0) gm/dL Hct (34.0-46.0) % MCV (80.0-100.0) fL MCH (25.0-35.0) pg MCHC (31.0-37.0) g/dL RDW (11.5-15.5) % Plt Count (150-450) k/uL Neutrophils % % Lymphocytes % % Monocytes % % Eosinophils % % Basophils % % Neutrophils # (1.3-7.7) k/uL Lymphocytes # (1.0-4.8) k/uL Monocytes # (0-1.0) k/uL Eosinophils # (0-0.7) k/uL Basophils # (0-0.2) k/uL PT 26.4 H (9.0-12.0) sec INR 2.7 H (<1.2) APTT 31.6 H (22.0-30.0) sec VBG pH 7.50 H (7.31-7.41) VBG pCO2 27 L (37-51) mmHg VBG HCO3 21 L (24-28) mmol/L Sodium (137-145) mmol/L Potassium (3.5-5.1) mmol/L Chloride (98-107) mmol/L Carbon Dioxide (22-30) mmol/L Anion Gap mmol/L BUN (7-17) mg/dL Creatinine (0.52-1.04) mg/dL Est GFR (CKD-EPI)AfAm (>60 ml/min/1.73 sqM) Est GFR (CKD-EPI)NonAf (>60 ml/min/1.73 sqM) Glucose (74-99) mg/dL Calcium (8.4-10.2) mg/dL Ionized Calcium Mary (4.5-5.3) mg/dL Phosphorus (2.5-4.5) mg/dL Magnesium (1.6-2.3) mg/dL Total Bilirubin (0.2-1.3) mg/dL AST (14-36) U/L ALT (9-52) U/L Alkaline Phosphatase (38-126) U/L Ammonia (<30) umol/L Creatine Kinase (30-135) U/L Troponin I <0.012 (0.000-0.034) ng/mL Total Protein (6.3-8.2) g/dL Albumin (3.5-5.0) g/dL - EKG Data -: EKG Interpreted by Me (EKG shows sinus bradycardia rate of 59, UT 146, QRS 84, QTC 441) Disposition Clinical Impression: Hypocalcemia, Hypophosphatemia, Hypomagnesemia, Carpopedal spasm Disposition: HOME SELF-CARE Condition: Good Instructions (If sedation given, give patient instructions): Hypocalcemia (ED), Carpopedal Spasm (ED) Is patient prescribed a controlled substance at d/c from ED?: No Referrals: Lobo Max MD [Primary Care Provider] - 1-2 days
[2018-11-04 19:57] LABS: Basophils % (A) 0 %; Eosinophils # (A) 0.1 k/uL (0-0.7); Eosinophils % (A) 2 %; HCT 35.8 % (34.0-46.0); HGB 11.8 gm/dL (11.4-16.0); Lymphocytes % (A) 25 %; MCH 27.6 pg (25.0-35.0); MCHC 32.9 g/dL (31.0-37.0); MCV 83.9 fL (80.0-100.0); Monocytes # (A) 0.1 k/uL (0-1.0); Monocytes % (A) 3 %; Neutrophils # (A) 2.9 k/uL (1.3-7.7); Neutrophils % (A) 69 %; Platelet Count 163 k/uL (150-450); RBC 4.27 m/uL (3.80-5.40); RDW 14.2 % (11.5-15.5); WBC 4.2 k/uL (3.8-10.6)
[2018-11-04 20:00] LABS: Ionized Calcium 4.1 mg/dL (4.5-5.3)
[2018-11-04 20:04] LABS: VBG PH 7.5 (7.31-7.41)
[2018-11-04 20:05] LABS: INR 2.7 (<1.2); Partial Thromboplastin Time 31.6 sec (22.0-30.0); Prothrombin Time 26.4 sec (9.0-12.0)
[2018-11-04 20:08] LABS: Albumin 3.8 g/dL (3.5-5.0); Calcium 7.9 mg/dL (8.4-10.2); Magnesium 1.3 mg/dL (1.6-2.3); Phosphorus 1.8 mg/dL (2.5-4.5); Potassium 3.5 mmol/L (3.5-5.1); Total Bilirubin 0.3 mg/dL (0.2-1.3); Total Protein 6.3 g/dL (6.3-8.2)
[2018-11-04] MEDS ORDERED: SODIUM PHOSPHATE 10 MMOL in SODIUM CHLORIDE 0.9% 250 ML IV STA ×2 (20:22→20:48)
[2018-11-04] MEDS ORDERED: MAGNESIUM OXIDE 400 MG TAB PO STA ×2 (20:22→20:53)
[2018-11-04] MEDS ORDERED: CALCIUM CHLORIDE 100 MG/ML 10 ML SYRINGE IVP STA (20:22)
[2018-11-04] MEDS ORDERED: CALCIUM CARBONATE 500 MG CHEWABLE PO STA (20:24)
[2018-11-04] MEDS ORDERED: MAGNESIUM SULFATE-D5W PMX 1 GM in DEXTROSE/WATER 1 100ML.BAG IVPB SCH (20:30)
--- NOTE | 2018-11-04 20:37 | CT ---
EXAMINATION TYPE: CT brain wo con DATE OF EXAM: 11/04/2018 COMPARISON: None HISTORY: AMS. PT c/o bilateral extremity numbness. Recent sx to thyroid CT DLP: 1113.4 mGycm. Automated Exposure Control for Dose Reduction was Utilized. TECHNIQUE: CT scan of the head is performed without contrast. FINDINGS: Ventricles of normal size. There is no mass effect nor midline shift. There is no sign of i ntracranial hemorrhage. Calvarium is intact. IMPRESSION: Normal head CT scan.
[2018-11-04 21:37] LABS: Amphetamine Screen,Urine Not Detected (NotDetected); Barbiturate Screen,Urine Not Detected (NotDetected); Benzodiazepines Screen,Urine Detected (NotDetected); Cocaine Screen,Urine Not Detected (NotDetected); Methadone Screen, Urine Not Detected (NotDetected); Opiate Screen,Urine Detected (NotDetected); Oxycodone Screen, Urine Not Detected (NotDetected); Phencyclidine Screen,Urine Not Detected (NotDetected); Tricyclic Antidepressant,Urine Not Detected (NotDetected); Urn Cannabinoid Scrn Not Detected (NotDetected)
[2018-11-04 21:44] LABS: Appearance,Urine Clear (Clear); Bilirubin,Urine Negative (Negative); Blood,Urine Negative (Negative); Color,Urine Light Yellow; Glucose,Urine (UA) Negative (Negative); Ketones,Urine Negative (Negative); Leukocyte Esterase,Urine Trace (Negative); Nitrite,Urine Negative (Negative); PH, Urine 6.5 (5.0-8.0); Protein,Urine Negative (Negative); RBC,Urine 2 /hpf (0-5); Specific Gravity,Urine 1.007 (1.001-1.035); Squamous Epithelial Cell,Urine <1 /hpf (0-4); Urobilinogen,Urine <2.0 mg/dL (<2.0); WBC,Urine 6 /hpf (0-5)
[2018-11-04 23:12] VITALS: BP 113/58; PULSE 62; RESP 16; TEMP 98.1
== END 2018-11-04 23:12 | disposition home or self-care (01) ==
LOC: EC 18:54
DX: E83.51 Hypocalcemia (principal); E83.39 Other disorders of phosphorus metabolism; E83.42 Hypomagnesemia; R29.0 Tetany; K21.9 Gastro-esophageal reflux disease without esophagitis; I25.2 Old myocardial infarction; Z86.718 Personal history of other venous thrombosis and embolism; Z86.711 Personal history of pulmonary embolism; F41.0 Panic disorder [episodic paroxysmal anxiety]; Z85.41 Personal history of malignant neoplasm of cervix uteri; Z79.01 Long term (current) use of anticoagulants; Z79.899 Other long term (current) drug therapy; Z88.2 Allergy status to sulfonamides
CPT/HCPCS: 36415; 93005; 80053; 82330; 82140; 82550; 82803; 83735; 84100; 84484; 85025; 85610; 85730; 81001; 80306; 83970; 70450; 99285; 96365; 96366; 96375; 96361; J3475

== ENCOUNTER → 2018-12-24 | Outpatient (CLI) | payer BC ==
[2018-12-24 16:23] LABS: LDL Cholesterol,Calculated 180.2 mg/dL (0.0-131.0); VLDL Calculation 49.8 mg/dL (5.00-40.00)
[2018-12-24 19:26] LABS: Hemoglobin A1C 6.6 % (4.0-6.0)
== END | disposition home or self-care (01) ==
LOC: LABWHC1 07:45
PROVIDERS: ATTEND Internal Medicine Critical Care Medicine
DX: Z00.00 Encounter for general adult medical examination without abnormal findings (principal); E11.9 Type 2 diabetes mellitus without complications; E78.5 Hyperlipidemia, unspecified
CPT/HCPCS: 36415; 80061; 82947; 83036

== ENCOUNTER → 2019-04-20 | Outpatient (CLI) | payer BC ==
[2019-04-20 16:44] LABS: African American GFR (CKD) 68.8 (60.0-200.0); Albumin 4.2 g/dL (3.80-4.90); Albumin/Globulin Ratio 2.21 (1.60-3.17); Anion Gap 9.4 mmol/L (4.00-12.00); BUN/Creat Ratio 17.27 Ratio (12.00-20.00); Calcium 9.8 mg/dL (8.7-10.3); Carbon Dioxide 28.6 mmol/L (21.6-31.8); Globulin 1.9 g/dL (1.6-3.3); Potassium 4.7 mmol/L (3.5-5.5); Total Bilirubin 0.3 mg/dL (0.2-1.2); Total Protein 6.1 g/dL (6.2-8.2)
[2019-04-20 16:50] LABS: T4, Free (Free Thyroxine) 1.1 ng/dL (0.80-1.80)
== END | disposition home or self-care (01) ==
LOC: LABWHC1 07:39
PROVIDERS: ATTEND Internal Medicine Endocrinology, Diabetes & Metabolism
DX: E21.0 Primary hyperparathyroidism (principal)
CPT/HCPCS: 36415; 80053; 82306; 83970; 84439; 84443

== ENCOUNTER → 2020-08-31 | Outpatient (CLI) | payer BC ==
[2020-08-31 14:36] LABS: Appearance,Urine Clear (Clear); Bacteria,Urine Rare /hpf; Bilirubin,Urine Negative (Negative); Blood,Urine Small (Negative); Color,Urine Yellow; Glucose,Urine (UA) 1+ (Negative); Hyaline Casts,Urine 3 /lpf (0-2); Ketones,Urine Negative (Negative); Leukocyte Esterase,Urine Negative (Negative); Mucus,Urine Occasional /hpf; Nitrite,Urine Negative (Negative); PH, Urine 5.5 (5.0-8.0); Protein,Urine Negative (Negative); RBC,Urine 2 /hpf (0-5); Squamous Epithelial Cell,Urine 2 /hpf (0-4); Urobilinogen,Urine <2.0 mg/dL (<2.0); WBC,Urine 1 /hpf (0-5)
[2020-08-31 19:27] LABS: Basophils # (A) 0.01 X 10*3/uL (0.00-0.10); Basophils % (A) 0.3 %; Eosinophils # (A) 0.08 X 10*3/uL (0.04-0.35); Eosinophils % (A) 2.6 %; HGB 12.9 g/dL (12.0-15.0); Lymphocytes # (A) 0.88 X 10*3/uL (0.90-5.00); Lymphocytes % (A) 28.8 %; MCH 27.5 pg (27.0-32.0); MCHC 32.3 g/dL (32.0-37.0); MCV 85.3 fL (80.0-97.0); Mean Platelet Volume 12.3 fL (9.5-12.2); Monocytes # (A) 0.27 X 10*3/uL (0.20-1.00); Monocytes % (A) 8.8 %; Neutrophils # (A) 1.81 X 10*3/uL (1.80-7.70); Neutrophils % (A) 59.2 %; Platelet Count 142 X 10*3/uL (140-440); RBC 4.69 X 10*6/uL (4.10-5.20); RDW 13.7 % (11.5-14.5); WBC 3.06 X 10*3/uL (4.50-10.00)
[2020-08-31 19:49] LABS: INR 1.09 (0.90-1.11); Prothrombin Time 11.8 sec (9.9-11.9)
[2020-08-31 19:59] LABS: African American GFR (CKD) 67.8 (60.0-200.0); Albumin 4.5 g/dL (3.80-4.90); Albumin/Globulin Ratio 2.14 (1.60-3.17); Anion Gap 5.7 mmol/L (4.00-12.00); BUN/Creat Ratio 13.64 Ratio (12.00-20.00); Calcium 9.6 mg/dL (8.7-10.3); Carbon Dioxide 29.3 mmol/L (21.6-31.8); Chol/HDL Ratio 4.47; Globulin 2.1 g/dL (1.6-3.3); LDL Cholesterol,Calculated 141.6 mg/dL (0.0-131.0); Non-African American GFR(CKD) 58.5 (60.0-200.0); Potassium 4.4 mmol/L (3.5-5.5); Total Bilirubin 0.5 mg/dL (0.3-1.2); Total Protein 6.6 g/dL (6.2-8.2); VLDL Calculation 59.4 mg/dL (5.00-40.00)
[2020-08-31 20:07] LABS: T4, Free (Free Thyroxine) 1.2 ng/dL (0.80-1.80)
[2020-08-31 20:17] LABS: Hemoglobin A1C 10.6 % (4.0-6.0)
== END | disposition home or self-care (01) ==
LOC: LABWHC1 12:18
PROVIDERS: ATTEND Internal Medicine Critical Care Medicine
DX: I26.99 Other pulmonary embolism without acute cor pulmonale (principal); E11.9 Type 2 diabetes mellitus without complications; E78.5 Hyperlipidemia, unspecified; E03.9 Hypothyroidism, unspecified; E83.52 Hypercalcemia
CPT/HCPCS: 36415; 80053; 80061; 81001; 82043; 82570; 83036; 84439; 84443; 85025; 85610

== ENCOUNTER → 2020-09-07 | Outpatient (CLI) | payer BC ==
--- NOTE | 2020-09-09 14:52 | PE ---
EXAMINATION TYPE: PET CT fusion skull to thigh DATE OF EXAM: 09/07/2020 COMPARISON: Prior PET/CT August 14, 2018 HISTORY: History of cervical cancer treated with surgery as well as chemotherapy and radiation treatm ent in 2016. TECHNIQUE: Following the intravenous administration of 8.73 mCi of F-18 FDG, whole body images are p erformed from the skull base to the midthigh. Images are reviewed on the computer in the coronal, ax ial, and sagittal planes. Reconstructed rotating images are created on independent workstation and r eviewed on the computer. A localization and attenuation correction CT is performed in conjunction w ith the PET scan. Blood glucose level was 175. SCAN: Subsequent Scan FINDINGS: SKULL BASE AND NECK: No suspicious hypermetabolic uptake is present. CHEST, MEDIASTINUM, AND HILAR REGION: No suspicious hypermetabolic uptake is seen. Low lung volumes r edemonstrated. ABDOMEN AND PELVIS: Normal excretion is identified. Mild uptake throughout bowel loops less prominent than prior. No suspicious new hypermetabolic uptake or adenopathy identified. Uterus surgically abse nt. Remnant lower uterine segment axial image 198 unchanged from prior. OSSEOUS STRUCTURES: No suspicious hypermetabolic uptake is seen. OTHER CT: Mild linear scarring anteriorly in the right lung redemonstrated. Subcentimeter left thyro id nodules not well seen. Cholecystectomy clips are redemonstrated. Liver remains diffusely low dense consistent with fatty inf iltration. There is facet arthropathy in the mid to lower lumbar spine. Scattered pelvic phleboliths are redemon strated. IMPRESSION: No suspicious new hypermetabolic uptake or adenopathy is seen to suggest recurrent or met astatic malignancy.
== END | disposition home or self-care (01) ==
LOC: RADPETMAIN 12:51
PROVIDERS: ATTEND Internal Medicine Critical Care Medicine
DX: C53.8 Malignant neoplasm of overlapping sites of cervix uteri (principal)
CPT/HCPCS: 78815; A9552

== ENCOUNTER → 2020-12-27 | Outpatient (CLI) | payer BC ==
--- NOTE | 2020-12-28 11:11 | CT ---
EXAMINATION TYPE: CT abdomen pelvis w con DATE OF EXAM: 12/27/2020, 09/07/2020 PET/CT COMPARISON: 10/29/2028 INDICATION: hematuria DLP: 1825 mGycm, Automated exposure control for dose reduction was used. CONTRAST: 80 mL of Isovue 300. Study performed with Oral Contrast TECHNIQUE: Axial images were obtained from above the diaphragm to the pubic rami in the axial plane a t 5 mm thick sections. Reconstructed images are reviewed on the computer in the coronal plane. FINDINGS: Limited CT sections are obtained the lung bases. The lung bases are clear. CT ABDOMEN: Liver: There is moderate fatty infiltration to the liver. No discrete masses are evident. Spleen: Normal Pancreas: Normal Adrenal glands: The adrenal glands are normal. Gallbladder: Surgically absent Kidneys: No masses are evident. No hydronephrosis is present. No cysts are present. No renal stone s are identified on these images. Aorta: Normal Inferior vena cava: Normal. CT PELVIS: Diverticular changes are within the sigmoid colon. No acute diverticulitis is evident. There may be some mild wall thickening diffusely throughout the sigmoid colon and possibly within the distal desce nding colon. Early mild colitis could be considered. There are loops of bowel which are incompletely distended or lack oral contrast limiting their evaluation. Appendix: Normal as visualized. Urinary bladder: Normal. Genitourinary structures: Uterus appears normal. Adnexal regions are within normal limits Osseous structures: Lytic changes within the T12 level are again evident, however PET scan in this re gion appeared negative. IMPRESSIONS: 1. Mild colitis of the distal descending colon and sigmoid colon should be considered. This can be r elated to incomplete distention. 2. Diverticulosis without acute diverticulitis. 3. Normal appendix. 4. Moderate fatty infiltration of liver
== END | disposition home or self-care (01) ==
LOC: RADCTMAIN 15:25
PROVIDERS: ATTEND Internal Medicine Critical Care Medicine
DX: K76.0 Fatty (change of) liver, not elsewhere classified (principal); K57.30 Diverticulosis of large intestine without perforation or abscess without bleeding
CPT/HCPCS: 82565; 84520; 74177; 36415; Q9967

== ENCOUNTER 2021-11-12 17:57 | Observation (INO) | payer BC ==
[2021-11-12 18:18] LABS: Glucose,Whole Blood 410 mg/dL (75-99)
[2021-11-12] MEDS ORDERED: ASPIRIN 81 MG PO STA (18:47)
[2021-11-12] MEDS ORDERED: NITROGLYCERIN OINT 1 INCH/GM PACKET TOPICAL STA (18:47)
[2021-11-12] MEDS ORDERED: LORazepam 2 MG/ML INJ IV STA (18:48)
[2021-11-12 19:16] LABS: Basophils % (A) 0 %; Eosinophils # (A) 0.1 k/uL (0-0.7); Eosinophils % (A) 2 %; HCT 43.7 % (34.0-46.0); HGB 14.2 gm/dL (11.4-16.0); Lymphocytes % (A) 29 %; MCH 27.8 pg (25.0-35.0); MCHC 32.4 g/dL (31.0-37.0); MCV 85.8 fL (80.0-100.0); Mean Platelet Volume 8.4; Monocytes # (A) 0.2 k/uL (0-1.0); Monocytes % (A) 5 %; Neutrophils # (A) 2.2 k/uL (1.3-7.7); Neutrophils % (A) 61 %; Platelet Count 152 k/uL (150-450); RBC 5.09 m/uL (3.80-5.40); RDW 14.8 % (11.5-15.5); WBC 3.5 k/uL (3.8-10.6)
[2021-11-12 19:27] LABS: INR 2.5 (<1.2); Partial Thromboplastin Time 30.4 sec (22.0-30.0)
[2021-11-12 19:35] LABS: Albumin 3.9 g/dL (3.5-5.0); Calcium 9.3 mg/dL (8.4-10.2); Magnesium 1.7 mg/dL (1.6-2.3); Potassium 4.3 mmol/L (3.5-5.1); Total Bilirubin 0.6 mg/dL (0.2-1.3); Total Protein 6.9 g/dL (6.3-8.2)
[2021-11-12] MEDS ORDERED: INSULIN REGULAR 100 UNIT/ML VIAL (IV) SQ STA (20:13)
--- NOTE | 2021-11-12 20:13 | XR ---
EXAMINATION TYPE: XR chest 2V DATE OF EXAM: 11/12/2021 7:11 PM COMPARISON: Chest radiographs from 10/29/2018 TECHNIQUE: XR chest 2V frontal and lateral views. CLINICAL INDICATION:Female, 51 years old with histo ry of Chest Pain; FINDINGS: Lungs/Pleura: There is no evidence of pleural effusion, focal consolidation, or pneumothorax. Pulmonary vascularity: Unremarkable. Heart/mediastinum: Cardiomediastinal silhouette is unremarkable. Musculoskeletal: No acute osseous pathology. IMPRESSION: No acute cardiopulmonary disease/process.
[2021-11-12] MEDS ORDERED: SODIUM CHLORIDE 0.9% 1,000 ML IV STA (20:14)
[2021-11-12] MEDS ORDERED: SODIUM CHLORIDE 0.9% 500 ML IV STA (20:14)
--- NOTE | 2021-11-12 20:52 | ED ---
Chest Pain HPI - General Chief Complaint: Chest Pain Stated Complaint: Chest pain and pressure, Shortness of Breath Time Seen by Provider: 11/12/21 18:32 Source: patient Mode of arrival: wheelchair Limitations: no limitations - History of Present Illness Initial Comments: This 51-year-old female presents with a complaint of some chest pain. She describes it as a midsternal chest pressure. She states that his been intermittent over the last couple of months but worse over the last 2 days. It is associated with some shortness of breath. She states that it occurred 2 days ago while at work. She also had some palpitations. She tried some metoprolol as well as Xanax and that seemed to help to a certain degree. She was better yesterday but then it reoccurred today. She denies any radiation of the pain. She states that her last stress test was many years ago. She also suffers from anxiety and appears anxious upon arrival. She also has a history of type 2 diabetes mellitus but is trying to control this with diet she presents with significant hyperglycemia today. She denies any other complaints or modifying factors. There is no leg pain or swelling. She does have a history of previous DVT but is currently on Coumadin. - Related Data Home Medications Medication Instructions Recorded Confirmed ALPRAZolam [Xanax] 0.5 mg PO Q8H PRN 11/14/13 11/04/18 Hydrocodone/Acetaminophen [[place] 1 - 2 tab PO Q6H PRN 11/14/13 11/04/18 5-325] Omeprazole [PriLOSEC] 20 mg PO DAILY 11/14/13 11/04/18 Sertraline [Zoloft] 200 mg PO DAILY 09/14/15 11/04/18 Warfarin Sodium [Coumadin] 6 mg PO DAILY 11/16/15 11/04/18 Metoprolol Succinate (ER) [Toprol 25 mg PO BID 10/08/17 11/04/18 Xl] Calcium Carb-Vit D 500Mg-5Mcg 2 tab PO TID 10/29/18 11/04/18 [Oscal 500+D] Ergocalciferol (Vitamin D2) 50,000 unit PO MO 10/29/18 11/04/18 [Drisdol] Allergies Allergy/AdvReac Type Severity Reaction Status Date / Time Sulfa (Sulfonamide Allergy Rash/Hives, Verified 11/12/21 18:07 Antibiotics) SHORTNESS OF BREATH Review of Systems ROS Statement: Those systems with pertinent positive or pertinent negative responses have been documented in the HPI. ROS Other: All systems not noted in ROS Statement are negative. 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 Last Myocardial Infarction Date:: 2009 History of Any Multi-Drug Resistant Organisms: None Reported Past Surgical History: Back Surgery, Section, Cholecystectomy, Orthopedic Surgery, Tubal Ligation, Uterine Ablation Additional Past Surgical History / Comment(s): L4-5, L5-S1 LAMINECTOMY WITH DISCECTOMY. , D&C, CONE BX, SAY SLEEVE Past Anesthesia/Blood Transfusion Reactions: Previous Problems w/ Anesthesia Additional Past Anesthesia/Blood Transfusion Reaction / Comment(s): AWAKENED DURING SURGERY X2; SPINAL SINGH POST D&C, HAD BLOOD PATCH, Past Psychological History: Anxiety, Panic Disorder Smoking Status: Never smoker Past Alcohol Use History: None Reported Past Drug Use History: None Reported - Past Family History Mother Family Medical History: No Reported History Additional Family Medical History / Comment(s): no history Father Family Medical History: Cancer General Exam - General Exam Comments Initial Comments: GENERAL: The patient is well nourished and well hydrated. VITAL SIGNS: Heart rate, blood pressure, respiratory rate reviewed as recorded in nurse's notes. EYES: Pupils are round and reactive. Extraocular movements are intact. No conjunctival / lid redness or swelling. ENT: No external evidence of injury, swelling, or ecchymosis. Airway is patent. Throat is clear. NECK: Nontender. No swelling or evidence of injury. No subcutaneous emphysema. Trachea is midline. No thyroid mass. HEART: Regular rate and rhythm. Good peripheral pulses. LUNGS/CHEST: Breath sounds clear and equal bilaterally. No rales, rhonchi, or wheezes. No ecchymosis, subcutaneous emphysema, or tenderness. ABDOMEN: Abdomen soft without tenderness. No palpable masses or organomegaly. No peritoneal signs. No abdominal wall swelling or ecchymosis. EXTREMITIES: No extremity tenderness. Normal muscle tone and function. No thoracolumbar tenderness. NEUROLOGIC: Sensation is grossly intact. Cranial nerve exam reveals face is symmetrical, tongue is midline, speech is clear. SKIN: No abrasions or ecchymosis is noted. No induration or masses noted. PSYCHIATRIC: Alert and oriented. Appears very anxious initially which is Limitations: no limitations Course Vital Signs 11/12/21 11/12/21 18:04 20:11 Temperature 97.9 F Pulse Rate 79 75 Respiratory 16 16 Rate Blood Pressure 108/74 128/73 O2 Sat by Pulse 98 98 Oximetry Chest Pain MDM - MDM The patient was seen and examined. All diagnostics are reviewed. EKG shows a normal sinus rhythm at a rate of 79. There is no acute ST-T wave changes identified. The patient also had a chest x-ray which does not show any acute process. Her laboratory shows a negative troponin but the blood sugar is over 400. The patient receives Ativan 1 mg IV and her anxiety significantly improved on recheck. She also receives insulin subcu. She states that she cannot remember the last time she had a stress test but has many years ago. The possibility of acute coronary syndrome certainly is plausible and is felt as though she benefit from admission for further treatment. Aspirin and Nitropaste are given. Case is discussed with advanced practice provider from [facility] and she is agreeable with admission. Disposition Clinical Impression: Chest pain, Unstable angina, Hyperglycemia, Anxiety, Diabetes Disposition: ADMITTED IP TO THIS HOSP Condition: Fair Is patient prescribed a controlled substance at d/c from ED?: No Time of Disposition: 20:52 Decision Date: 11/12/21 Decision Time: 20:52
[2021-11-12] MEDS ORDERED: LORazepam 2 MG/ML INJ IV PRN (20:56)
[2021-11-12 21:25] LABS: Glucose,Whole Blood 330 mg/dL (75-99)
[2021-11-12] MEDS: INSULIN ASPART (NovoLOG) 100 UNIT/ML VIAL SQ SCH (21:26)
[2021-11-13] MEDS: NITROGLYCERIN OINT 1 INCH/GM PACKET TOPICAL SCH ×2 (01:13→05:17)
[2021-11-13 01:16] LABS: Glucose,Whole Blood 76 mg/dL (75-99)
[2021-11-13 07:59] LABS: Glucose,Whole Blood 172 mg/dL (75-99)
[2021-11-13] MEDS ORDERED: ASPIRIN 325 MG TAB PO SCH (09:00)
[2021-11-13 09:42] LABS: INR 2.52 (0.90-1.11); Prothrombin Time 27.2 sec (9.9-11.9)
[2021-11-13] MEDS: INSULIN ASPART (NovoLOG) 100 UNIT/ML VIAL SQ SCH ×2 (09:43→12:33)
[2021-11-13] MEDS: METOPROLOL SUCCINATE (ER) 25 MG TAB.ER.24H PO SCH ×2 (09:44→21:41)
[2021-11-13] MEDS: SERTRALINE 100 MG TAB PO SCH (09:44)
[2021-11-13 10:51] VITALS: BMI 33.3
[2021-11-13 11:03] LABS: Glucose,Whole Blood 378 mg/dL (75-99)
[2021-11-13 11:13] LABS: Chol/HDL Ratio 5.52 Ratio; LDL Cholesterol,Calculated 161.4 mg/dL (0.0-131.0)
--- NOTE | 2021-11-13 11:24 | CA ---
Transthoracic Echo Report Name: Liliana Wiley Age: 51 Gender: F : 1970 Exam Date: 11/13/2021 08:19 Exam Location: [facility] Ht (in): 65 Wt (lb): 200 Ordering Physician: Jaya López DO Attending/Referring Phys: [id number], Maribel Director Of Human Resources Malinda Andres RDCS Procedure CPT: Indications: cp and sob Cardiac Hx: Hx of [place] Technical Quality: Fair Contrast 1: Total Dose (mL): Contrast 2: Total Dose (mL): MEASUREMENTS (Male / Female) Normal Values 2D ECHO LV Diastolic Diameter PLAX 3.2 cm 4.2 - 5.9 / 3.9 - 5.3 cm LV Systolic Diameter PLAX 1.9 cm IVS Diastolic Thickness 1.1 cm 0.6 - 1.0 / 0.6 - 0.9 cm LVPW Diastolic Thickness 1.1 cm 0.6 - 1.0 / 0.6 - 0.9 cm LV Relative Wall Thickness 0.7 M-MODE Aortic Root Diameter MM 2.9 cm LA Systolic Diameter MM 3.2 cm LA Ao Ratio MM 1.1 MV E Point Septal Separation 1.6 cm AV Cusp Separation MM 2.0 cm DOPPLER AV Peak Velocity 99.9 cm/s AV Peak Gradient 4.0 mmHg MV Area PHT 2.7 cm??? MR Peak Velocity 109.4 cm/s MR Peak Gradient 4.8 mmHg Mitral E Point Velocity 58.7 cm/s Mitral A Point Velocity 59.2 cm/s Mitral E to A Ratio 1.0 MV Deceleration Time 282.6 ms TR Peak Velocity 98.5 cm/s TR Peak Gradient 3.9 mmHg Right Ventricular Systolic Press 8.8 mmHg FINDINGS Left Ventricle Mildly increased septal wall thickness. Mildly increased posterior wall thickness. Left ventricular ejection fraction is estimated at 50-55 %. Left ventricular cavity size normal. Right Ventricle The right ventricle is normal in size and function. Right Atrium The right atrium is normal in size. Left Atrium The left atrium is normal in size. Mitral Valve Structurally normal mitral valve without significant stenosis or prolapse. There is a trace of mitral regurgitation. Aortic Valve Structurally normal aortic valve without significant sclerosis or stenosis. There is no aortic regurgitation. Tricuspid Valve Structurally normal tricuspid valve without significant stenosis. Pulmonary artery systolic pressure is normal. Trace tricuspid regurgitation. Pulmonic Valve Structurally normal pulmonic valve without significant stenosis. There is no pulmonic regurgitation. Pericardium Normal pericardium without effusion. Aorta Normal aortic root dimension. CONCLUSIONS Preserved LV size and systolic function Previewed by: Dr. Johnnie Erazo MD (Electronically Signed) Final Date: 13 Nov 2021 11:23
--- NOTE | 2021-11-13 11:35 | P.CRDCN ---
History of Present Illness History of present illness: HISTORY OF PRESENT ILLNESS: This is a 51-year-old female with a past medical history significant for DVT, GERD, depression, anxiety, and PTSD. Patient does not follow with a whiting can worker. We have been asked to see the patient in consultation for chest pain. Patient examined at the bedside. Patient states she first began having chest discomfort on Thursday. She states it was a squeezing sensation that started in the middle of her chest. She states it lasted about an hour. She reports taking Xanax and metoprolol and doing some breathing exercises which improved her pain. Patient states she did check her blood pressure at that time and it was normal but she is unsure exactly what the number was. She does remember her heart rate was in the 90s. She states on Thursday she felt fine and did not have any pain. She states Thursday she was sleeping during the day and when she got up to get ready for work she began to have the same symptoms. She states that she felt a pressure-like sensation in her chest and she felt short of breath and diaphoretic. She states that she felt like her heart was racing but did not check her vital signs at that time. At the time of examination this morning, the patient denies any chest pain or pressure. She denies shortness of breath. She denies palpitations. Patient states that she thinks a lot of her symptoms are related to her anxiety. * EKG reveals sinus mechanism with no signs of acute ischemia * Chest xray negative for acute process * Laboratory data: WBC 3.5. Hemoglobin 14.2. Platelet count 152. Sodium 132. Potassium 4.3. BUN 15. Creatinine 1.0. Troponin negative 3. * Current home cardiac medications include metoprolol succinate 25 mg twice a day and Coumadin 6 mg at night REVIEW OF SYSTEMS: At the time of my exam: CONSTITUTIONAL: Denies fever or chills. HEENT: Denies blurred vision, vision changes, or eye pain. Denies hemoptysis CARDIOVASCULAR: Denies chest pain. Denies orthopnea. Denies PND. Denies palpitations RESPIRATORY: Denies shortness of breath. GASTROINTESTINAL: Denies abdominal pain. Denies nausea or vomiting. HEMATOLOGIC: Denies bleeding disorders. GENITOURINARY: Denies any blood in urine. SKIN: Denies pruitis. Denies rash. PHYSICAL EXAM: VITAL SIGNS: Reviewed. GENERAL: Well-developed in no acute distress. HEENT: Head is normocephalic. Pupils are equal, round. Sclerae anicteric. Mucous membranes of the mouth are moist. Neck supple. No JVD or thyromegaly LUNGS: Respirations even and unlabored. Lungs essentially clear to auscultation bilaterally. HEART: Regular rate and rhythm. S1 and S2 heard. ABDOMEN: Soft. Nondistended. Nontender. EXTREMITIES: Normal range of motion. No clubbing or cyanosis. Peripheral pulses intact. No lower extremity edema NEUROLOGIC: Awake and alert. Oriented x 3. ASSESSMENT: Chest pain, atypical, troponin negative 3 History of DVT, on Coumadin Hyperlipidemia, LDL 161 Depression Anxiety PTSD GERD PLAN: An acute coronary event has been ruled out Obtain 2-D echo to assess cardiac structure and function Begin Lipitor 20 mg at night Continue Coumadin Further recommendations pending patient's course Patient is stable for discharge from a cardiac standpoint. She is to follow up on an outpatient basis with Dr. Erazo Nurse practitioner note has been reviewed by physician. Signing provider agrees with the documented findings, assessment, and plan of care. 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 Last Myocardial Infarction Date:: 2009 History of Any Multi-Drug Resistant Organisms: None Reported Past Surgical History: Back Surgery, Section, Cholecystectomy, Orthope dic Surgery, Tubal Ligation, Uterine Ablation Additional Past Surgical History / Comment(s): L4-5, L5-S1 LAMINECTOMY WITH DISCECTOMY. , D&C, CONE BX, SAY SLEEVE Past Anesthesia/Blood Transfusion Reactions: Previous Problems w/ Anesthesia Additional Past Anesthesia/Blood Transfusion Reaction / Comment(s): AWAKENED DURING SURGERY X2; SPINAL SINGH POST D&C, HAD BLOOD PATCH, Past Psychological History: Anxiety, Panic Disorder Smoking Status: Never smoker Past Alcohol Use History: None Reported Past Drug Use History: None Reported - Past Family History Mother Family Medical History: No Reported History Additional Family Medical History / Comment(s): no history Father Family Medical History: Cancer Medications and Allergies Home Medications Medication Instructions Recorded Confirmed Type Sertraline [Zoloft] 200 mg PO DAILY 09/14/15 11/12/21 History Warfarin Sodium [Coumadin] 6 mg PO HS 11/16/15 11/12/21 History Metoprolol Succinate (ER) [Toprol 25 mg PO BID 10/08/17 11/12/21 History Xl] Famotidine 40 mg PO HS 11/12/21 11/12/21 History Omeprazole Magnesium [PriLOSEC] 20 mg PO HS 11/12/21 11/12/21 History Allergies Allergy/AdvReac Type Severity Reaction Status Date / Time Sulfa (Sulfonamide Allergy Rash/Hives, Verified 11/12/21 21:34 Antibiotics) SHORTNESS OF BREATH Physical Exam Vitals: Vital Signs Temp Pulse Pulse Pulse Resp BP BP 11/13/21 07:40 97.7 F 81 15 131/77 11/13/21 00:17 97.6 F 76 17 124/72 11/12/21 20:11 75 16 128/73 11/12/21 18:04 97.9 F 79 16 108/74 Pulse Ox 11/13/21 07:40 97 11/13/21 00:17 95 11/12/21 20:11 98 11/12/21 18:04 98 Intake and Output 11/12/21 11/13/21 11/13/21 22:59 06:59 14:59 Other: # Voids 1 Weight 90.718 kg 90.718 kg Results 11/12/21 19:00 11/12/21 19:00 Cardiac Enzymes 11/12/21 11/12/21 11/12/21 Range/Units 19:00 19:00 23:13 AST 31 (14-36) U/L Troponin I <0.012 <0.012 (0.000-0.034) ng/mL 11/13/21 Range/Units 01:33 AST (14-36) U/L Troponin I <0.012 (0.000-0.034) ng/mL Coagulation 11/12/21 Range/Units 19:00 PT 25.0 H (9.0-12.0) sec APTT 30.4 H (22.0-30.0) sec CBC 11/12/21 Range/Units 19:00 WBC 3.5 L (3.8-10.6) k/uL RBC 5.09 (3.80-5.40) m/uL Hgb 14.2 (11.4-16.0) gm/dL Hct 43.7 (34.0-46.0) % Plt Count 152 (150-450) k/uL Comprehensive Metabolic Panel 11/12/21 Range/Units 19:00 Sodium 132 L (137-145) mmol/L Potassium 4.3 (3.5-5.1) mmol/L Chloride 102 (98-107) mmol/L Carbon Dioxide 20 L (22-30) mmol/L BUN 15 (7-17) mg/dL Creatinine 1.00 (0.52-1.04) mg/dL Glucose 402 H (74-99) mg/dL Calcium 9.3 (8.4-10.2) mg/dL AST 31 (14-36) U/L ALT 31 (4-34) U/L Alkaline Phosphatase 76 (38-126) U/L Total Protein 6.9 (6.3-8.2) g/dL Albumin 3.9 (3.5-5.0) g/dL Current Medications Generic Name Dose Route Start Last Admin Trade Name Freq PRN Reason Stop Dose Admin Aspirin 325 mg 11/13/21 09:00 Aspirin 325 Mg Tab PO DAILY [facility] Famotidine 40 mg 11/13/21 21:00 Famotidine 20 Mg Tab PO HS [facility] Insulin Aspart 0 unit 11/12/21 21:00 11/12/21 21:26 Insulin Aspart (Novolog) 100 Unit/Ml Vial SQ Not Given ACHS [facility] Protocol Lorazepam 1 mg 11/12/21 20:56 Lorazepam 2 Mg/Ml Inj IV Q6H PRN Anxiety Metoprolol Succinate 25 mg 11/13/21 09:00 Metoprolol Succinate (Er) 25 Mg Tab.Er.24h PO BID [facility] Miscellaneous Information 0 each 11/12/21 21:49 Warfarin Per Pharmacy MISCELLANE DIRECTED PRN PER PROTOCOL Nitroglycerin 1 inch 11/13/21 00:00 11/13/21 05:17 Nitroglycerin Oint 1 Inch/Gm Packet TOPICAL Not Given Q6HR TAB Pantoprazole Sodium 40 mg 11/13/21 21:00 Pantoprazole 40 Mg Tablet PO HS TAB Sertraline HCl 200 mg 11/13/21 09:00 Sertraline 100 Mg Tab PO DAILY TAB Intake and Output 11/12/21 11/13/21 11/13/21 22:59 06:59 14:59 Other: # Voids 1 Weight 90.718 kg 90.718 kg 11/12/21 19:00 11/12/21 19:00
--- NOTE | 2021-11-13 11:44 | P.CNPUL ---
History of Present Illness Consult date: 11/13/21 Requesting physician: Kathy Escoto Reason for consult: dyspnea Chief complaint: Chest tightness, shortness of breath History of present illness: This is a 51-year-old female patient who follows with Dr. Max as her primary care provider. She has a history of hyperparathyroidism, cervical cancer, chronic neck and back pain, anxiety/panic disorder, hypothyroidism, obstructive sleep apnea intolerant to CPAP therapy, gastroesophageal reflux disease, diabetes mellitus, hyperlipidemia, previous myocardial infarction, recurrent DVT and massive pulmonary embolism and is maintained on lifelong anticoagulation in the form of warfarin. He presented here to the emergency room last evening with complaints of chest tightness and shortness of breath. This is a been occurring over the last couple of months but was worse over the last few days prior to her arrival. His been coming and going. No significant aggravating factors. No significant relieving factors. She states she felt s ome palpitations and was diaphoretic. No nausea. Chest x-ray revealed no acute cardiopulmonary process. EKG reveals normal sinus rhythm without ST or T wave abnormalities. Echocardiogram reveals preserved left ventricular systolic function with ejection fraction 50-55%. No significant valvular abnormalities. White count 3.5. Hemoglobin 14.2. INR 2.5. Sodium 132. Potassium 4.3. BUN 15. Creatinine 1.00. Glucose 3:30. Hemoglobin A1c 12.8. Troponin negative 3. ProBNP 116. Cholesterol 245. Triglycerides 196. LDL 161. HDL 44. She had previously been on metformin. She had been referred to endocrinology at her last appointment in our office in March 2021. She is seen today in consultation on the regular medical floor. She is resting quite comfortably in bed. Awake and alert in no acute distress. She states the chest discomfort is gone currently. She is maintaining good O2 saturations in the mid to upper 90s on room air. She's been afebrile. Hemodynamically stable. Review of Systems REVIEW OF SYSTEMS: CONSTITUTIONAL: Denies any recent significant weight loss or weight gain. EYES: Denies change in vision. EARS, NOSE, MOUTH, THROAT: Denies headaches, denies sore throat. CARDIOVASCULAR: Positive for chest discomfort, palpitations no syncopal episodes. RESPIRATORY: Denies shortness of breath, cough, congestion or hemoptysis. GASTROINTESTINAL: Denies change in appetite, denies abdominal pain GENITOURINARY: Denies hematuria, denies infections. MUSKULOSKELETAL: Denies pain, denies swelling. INTEGUMENTARY: Denies rash, denies eczema. NEUROLOGICAL: Denies recent memory loss, no recent seizure activity. PSYCHIATRIC: Denies anxiety, denies depression. HEMATOLOGIC/LYMPHATIC: Denies anemia, denies enlarged lymph nodes. Past Medical History Past Medical History: Cancer, Chest Pain / Angina, Diabetes Mellitus, Deep Vein Thrombosis (DVT), GERD/Reflux, Hyperlipidemia, Myocardial Infarction ([place]), Pulmonary Embolus ([place]) Additional Past Medical History / Comment(s): Recurrent DVT and previous history of massive pulmonary embolism maintained on lifelong antibiotic ventilation with Coumadin, cervical cancer post-chemoradiation therapy, hypertension, hyperlipidemia, acid reflux, anxiety, chronic back pain and neck pain, history of pancreatitis 2 post cholecystectomy, degenerative arthritis, previous laminectomy and lumbar spine fusion. Last Myocardial Infarction Date:: 2009 History of Any Multi-Drug Resistant Organisms: None Reported Past Surgical History: Back Surgery, Section, Cholecystectomy, Orthopedic Surgery, Tubal Ligation, Uterine Ablation Additional Past Surgical History / Comment(s): L4-5, L5-S1 LAMINECTOMY WITH DISCECTOMY. , D&C, CONE BX, SAY SLEEVE Past Anesthesia/Blood Transfusion Reactions: Previous Problems w/ Anesthesia Additional Past Anesthesia/Blood Transfusion Reaction / Comment(s): AWAKENED DURING SURGERY X2; SPINAL SINGH POST D&C, HAD BLOOD PATCH, Past Psychological History: Anxiety, Panic Disorder Smoking Status: Never smoker Past Alcohol Use History: None Reported Past Drug Use History: None Reported - Past Family History Mother Family Medical History: No Reported History Additional Family Medical History / Comment(s): no history Father Family Medical History: Cancer Medications and Allergies Home Medications Medication Instructions Recorded Confirmed Type Sertraline [Zoloft] 200 mg PO DAILY 09/14/15 11/12/21 History Warfarin Sodium [Coumadin] 6 mg PO HS 11/16/15 11/12/21 History Metoprolol Succinate (ER) [Toprol 25 mg PO BID 10/08/17 11/12/21 History Xl] Famotidine 40 mg PO HS 11/12/21 11/12/21 History Omeprazole Magnesium [PriLOSEC] 20 mg PO HS 11/12/21 11/12/21 History Allergies Allergy/AdvReac Type Severity Reaction Status Date / Time Sulfa (Sulfonamide Allergy Rash/Hives, Verified 11/12/21 21:34 Antibiotics) SHORTNESS OF BREATH Physical Exam Vitals: Vital Signs Temp Pulse Pulse Pulse Resp BP BP 11/13/21 07:40 97.7 F 81 15 131/77 11/13/21 00:17 97.6 F 76 17 124/72 11/12/21 20:11 75 16 128/73 11/12/21 18:04 97.9 F 79 16 108/74 Pulse Ox 11/13/21 07:40 97 11/13/21 00:17 95 11/12/21 20:11 98 11/12/21 18:04 98 Intake and Output 11/12/21 11/13/21 11/13/21 22:59 06:59 14:59 Other: # Voids 1 Weight 90.718 kg 90.718 kg 90.718 kg GENERAL EXAM: Alert, obese 51-year-old female patient, on room air, comfortable in no apparent distress. HEAD: Normocephalic. EYES: Normal reaction of pupils, equal size. NOSE: Clear with pink turbinates. THROAT: No erythema or exudates. NECK: No masses, no JVD. CHEST: No chest wall deformity. LUNGS: Equal air entry with no crackles, wheeze, rhonchi or dullness. CVS: S1 and S2 normal with no audible murmur, regular rhythm. ABDOMEN: No hepatosplenomegaly, normal bowel sounds, no guarding or rigidity. SPINE: No scoliosis or deformity SKIN: No rashes CENTRAL NERVOUS SYSTEM: No focal deficits, tone is normal in all 4 extremities. EXTREMITIES: There is no peripheral edema. No clubbing, no cyanosis. Peripheral pulses are intact. Results - Laboratory Findings CBC and BMP: 11/12/21 19:00 11/12/21 19:00 PT/INR, D-dimer PT 27.2 sec (9.9-11.9) H 11/13/21 05:45 INR 2.52 (0.90-1.11) H 11/13/21 05:45 Abnormal lab findings: Abnormal Labs 11/12/21 11/12/21 11/12/21 18:16 19:00 19:00 WBC 3.5 L PT 25.0 H INR 2.5 H APTT 30.4 H Sodium Carbon Dioxide Glucose POC Glucose (mg/dL) 410 H Hemoglobin A1c Triglycerides Cholesterol LDL Cholesterol, Calc 11/12/21 11/12/21 11/12/21 19:00 19:00 21:24 WBC PT INR APTT Sodium 132 L Carbon Dioxide 20 L Glucose 402 H POC Glucose (mg/dL) 330 H Hemoglobin A1c 12.8 H Triglycerides Cholesterol LDL Cholesterol, Calc 11/13/21 11/13/21 11/13/21 05:45 05:45 07:58 WBC PT 27.2 H INR 2.52 H APTT Sodium Carbon Dioxide Glucose POC Glucose (mg/dL) 172 H Hemoglobin A1c Triglycerides 196.00 H Cholesterol 245.00 H LDL Cholesterol, Calc 161.4 H 11/13/21 11:02 WBC PT INR APTT Sodium Carbon Dioxide Glucose POC Glucose (mg/dL) 378 H Hemoglobin A1c Triglycerides Cholesterol LDL Cholesterol, Calc - Diagnostic Findings Chest x-ray: image reviewed Assessment and Plan Assessment: 1 Atypical chest discomfort. Acute coronary syndrome ruled out. Preserved left ventricular systolic function. 2 Diabetes mellitus, type II, poorly controlled. Hemoglobin A1c 12.8 3 Hyperlipidemia, currently not on statins 4 History of recurrent DVT/PE, maintained on warfarin, therapeutic 5 History of cervical cancer 6 Hyperparathyroidism, status post parathyroidectomy in 2019 7 Obesity with a BMI of 33 kg per metered squared 8 History of obstructive sleep apnea, intolerant to CPAP 9 Anxiety/panic disorder 10 History of chronic neck and back pain 11 Gastroesophageal reflux disease Plan: The patient was seen and evaluated Chest x-ray, EKG, echocardiogram and labs reviewed Stable from the pulmonary standpoint Cardiology consult pending Educated regarding the importance of medication compliance Initiated on Tradjenta and NovoLog scale per medicine Anti-coagulated with warfarin We will continue to follow and make further recommendations based on her clinical status I have personally seen and examined the patient, performed the documentation and the assessment and plan as written. Number of minutes spent on the visit: 20.
[2021-11-13 12:30] LABS: Glucose,Whole Blood 433 mg/dL (75-99)
[2021-11-13] MEDS: LINAGLIPTIN 5 MG TABLET PO SCH (12:33)
[2021-11-13 13:33] LABS: Glucose,Whole Blood 297 mg/dL (75-99)
[2021-11-13] MEDS: GLIMEPIRIDE 1 MG TAB PO SCH (14:13)
[2021-11-13 15:40] LABS: Glucose,Whole Blood 85 mg/dL (75-99)
[2021-11-13 17:16] LABS: Glucose,Whole Blood 111 mg/dL (75-99)
--- NOTE | 2021-11-13 17:45 | P.HPIM ---
History of Present Illness This is a pleasant 51 years old female with past medical history of Diabetes Mellitus, Deep Vein Thrombosis on warfarin, GERD, and previous history of massive pulmonary embolism maintained on lifelong Coumadin, cervical cancer post-chemoradiation therapy, hypertension, hyperlipidemia,, chronic back pain and neck pain, previous laminectomy and lumbar spine fusion, Anxiety, Panic Disorder Patient presents because of chest pain, patient describes her pain as squeezing sensation in the middle of her chest about 5/10 in severity and feels like someone was standing on her chest which is resolved now on 0/10. Associated with some headache after Nitropaste she denies coughing or dyspnea. Also patient has been complaining of from losing weight and polyuria and polydipsia. She was taking metformin but because of her GI side effects she stopped taking metformin and has been 4 years ago she is not on any treatment and does not follow up. She denies diarrhea or vomiting. No dysuria or urgency. No weakness or numbness or dizziness. Vitals are stable. Laboratory reviewed. WBC 3.5, rest of CBC is unremarkable. INR is therapeutic at 2.5. Sodium 132 rest of BMP and liver enzymes are unremarkable. Glucose is elevated to 403-30. Troponin are negative less than 0.0122. ProBNP is 116. EKG showed normal sinus rhythm at [address]-T changes. Chest x-ray: No acute process. In the emergency room patient received aspirin, Ativan, insulin and normal saline. Hemoglobin A1c is 12.8% Review of Systems CONSTITUTIONAL: No fever, no malaise, no fatigue. HEENT: No recent visual problems or hearing problems. Denied any sore throat. CARDIOVASCULAR: No orthopnea, PND, no palpitations, no syncope. PULMONARY: No shortness of breath, no cough, no hemoptysis. GASTROINTESTINAL: No diarrhea, no nausea, no vomiting, no abdominal pain. Normoactive bowel sounds. NEUROLOGICAL: No headaches, no weakness, no numbness. HEMATOLOGICAL: Denies any bleeding or petechiae. GENITOURINARY: Denies any burning micturition, frequency, or urgency. MUSCULOSKELETAL/RHEUMATOLOGICAL: Denies any joint pain, swelling, or any muscle pain. ENDOCRINE: Denies any polyuria or polydipsia. Past Medical History Past Medical History: Cancer, Chest Pain / Angina, Diabetes Mellitus, Deep Vein Thrombosis (DVT), GERD/Reflux, Hyperlipidemia, Myocardial Infarction ([place]), Pulmonary Embolus ([place]) Additional Past Medical History / Comment(s): Recurrent DVT and previous history of massive pulmonary embolism maintained on lifelong antibiotic ventilation with Coumadin, cervical cancer post-chemoradiation therapy, hypertension, hyperlipidemia, acid reflux, anxiety, chronic back pain and neck pain, history of pancreatitis 2 post cholecystectomy, degenerative arthritis, previous laminectomy and lumbar spine fusion. Last Myocardial Infarction Date:: 2009 History of Any Multi-Drug Resistant Organisms: None Reported Past Surgical History: Back Surgery, Section, Cholecystectomy, Orthopedic Surgery, Tubal Ligation, Uterine Ablation Additional Past Surgical History / Comment(s): L4-5, L5-S1 LAMINECTOMY WITH DISCECTOMY. , D&C, CONE BX, SAY SLEEVE Past Anesthesia/Blood Transfusion Reactions: Previous Problems w/ Anesthesia Additional Past Anesthesia/Blood Transfusion Reaction / Comment(s): AWAKENED DURING SURGERY X2; SPINAL SINGH POST D&C, HAD BLOOD PATCH, Past Psychological History: Anxiety, Panic Disorder Smoking Status: Never smoker Past Alcohol Use History: None Reported Past Drug Use History: None Reported - Past Family History Mother Family Medical History: No Reported History Additional Family Medical History / Comment(s): no history Father Family Medical History: Cancer Medications and Allergies Home Medications Medication Instructions Recorded Confirmed Type Sertraline [Zoloft] 200 mg PO DAILY 09/14/15 11/12/21 History Warfarin Sodium [Coumadin] 6 mg PO HS 11/16/15 11/12/21 History Metoprolol Succinate (ER) [Toprol 25 mg PO BID 10/08/17 11/12/21 History XL] Famotidine 40 mg PO HS 11/12/21 11/12/21 History Omeprazole Magnesium [PriLOSEC] 20 mg PO HS 11/12/21 11/12/21 History Atorvastatin [Lipitor] 20 mg PO HS #30 tab 11/13/21 Rx Glimepiride [Amaryl] 1 mg PO AC-BRKFST #30 tab 11/13/21 Rx Linagliptin [Tradjenta] 5 mg PO DAILY #30 tablet 11/13/21 Rx Allergies Allergy/AdvReac Type Severity Reaction Status Date / Time Sulfa (Sulfonamide Allergy Rash/Hives, Verified 11/12/21 21:34 Antibiotics) SHORTNESS OF BREATH Physical Exam Vitals: Vital Signs Temp Pulse Pulse Resp BP BP Pulse Ox 11/13/21 00:17 97.6 F 76 17 124/72 95 11/12/21 20:11 75 16 128/73 98 11/12/21 18:04 97.9 F 79 16 108/74 98 Intake and Output 11/12/21 11/13/21 11/13/21 22:59 06:59 14:59 Other: # Voids 1 Weight 90.718 kg 90.718 kg - GENERAL: The patient is alert and oriented x3, not in any acute distress. Obese HEENT: Pupils are round and equally reacting to light. EOMI. No scleral icterus. No conjunctival pallor. Normocephalic, atraumatic. No pharyngeal erythema. No thyromegaly. CARDIOVASCULAR: S1 and S2 present. No murmurs, rubs, or gallops. PULMONARY: Chest is clear to auscultation, no wheezing or crackles. ABDOMEN: Soft, nontender, nondistended, normoactive bowel sounds. No palpable organomegaly. MUSCULOSKELETAL: No joint swelling or deformity. EXTREMITIES: No cyanosis, clubbing, or pedal edema. NEUROLOGICAL: Gross neurological examination did not reveal any focal deficits. SKIN: No rashes. No petechiae Results CBC & Chem 7: 11/12/21 19:00 11/12/21 19:00 Labs: Abnormal Lab Results - Last 24 Hours (Table) 11/12/21 11/12/21 11/12/21 Range/Units 18:16 19:00 19:00 WBC 3.5 L (3.8-10.6) k/uL PT 25.0 H (9.0-12.0) sec INR 2.5 H (<1.2) APTT 30.4 H (22.0-30.0) sec Sodium (137-145) mmol/L Carbon Dioxide (22-30) mmol/L Glucose (74-99) mg/dL POC Glucose (mg/dL) 410 H (75-99) mg/dL Hemoglobin A1c (0.0-6.0) % 11/12/21 11/12/21 11/12/21 Range/Units 19:00 19:00 21:24 WBC (3.8-10.6) k/uL PT (9.0-12.0) sec INR (<1.2) APTT (22.0-30.0) sec Sodium 132 L (137-145) mmol/L Carbon Dioxide 20 L (22-30) mmol/L Glucose 402 H (74-99) mg/dL POC Glucose (mg/dL) 330 H (75-99) mg/dL Hemoglobin A1c 12.8 H (0.0-6.0) % Assessment and Plan Assessment: Chest pain, rule out cardiac causes Diabetes mellitus with hyperglycemia, present on admission History of DVT and PE on Coumadin Hypertension History of GERD History of hyperlipidemia History of chronic back pain status post surgery History of anxiety and panic disorder Obesity with BMI of 53.3 Plan: This is a pleasant 51 female presents with chest pain. Cardiology consult Discussed with the patient the importance of a rescue treatment for diabetes. We started the patient on limited lifting and Amaryl because she does not want metformin. Glucometer is provided for the patient for close monitoring of her glucose as she is at-risk of hypo-and hyperglycemia at the same time. Nutrition consult Labs and medication were reviewed.. Continue same treatment. Continue with symptomatic treatment. Resume home medication. Monitor lytes and vitals. DVT and GI prophylaxis. Further recommendations as per clinical course of the patient DVT prophylaxis: Subcutaneous heparin GI Prophylaxis: Pepcid
[2021-11-13] MEDS ORDERED: NON FORMULARY DRUG (Warfarin Sodium [Coumadin] 6 MG Tablet) PO SCH (21:00)
[2021-11-13] MEDS ORDERED: WARFARIN 3 MG TAB PO SCH (21:00)
[2021-11-13] MEDS ORDERED: PANTOPRAZOLE 40 MG TABLET PO SCH (21:00)
[2021-11-13] MEDS ORDERED: ATORVASTATIN 20 MG TAB PO SCH (21:00)
[2021-11-13] MEDS ORDERED: FAMOTIDINE 20 MG TAB PO SCH (21:00)
[2021-11-13 21:02] LABS: Glucose,Whole Blood 224 mg/dL (75-99)
[2021-11-13] MEDS: SODIUM CHLORIDE 0.9% 1,000 ML IV SCH (23:10)
[2021-11-14 02:15] LABS: Glucose,Whole Blood 197 mg/dL (75-99)
[2021-11-14] MEDS ORDERED: INSULIN ASPART (NovoLOG) 100 UNIT/ML VIAL SQ ONE (02:28)
[2021-11-14] MEDS: SODIUM CHLORIDE 0.9% 1,000 ML IV SCH (02:49)
[2021-11-14 07:27] LABS: Glucose,Whole Blood 158 mg/dL (75-99)
[2021-11-14 10:06] LABS: Glucose,Whole Blood 265 mg/dL (75-99)
[2021-11-14] MEDS: GLIMEPIRIDE 1 MG TAB PO SCH (10:23)
[2021-11-14] MEDS: METOPROLOL SUCCINATE (ER) 25 MG TAB.ER.24H PO SCH (10:24)
[2021-11-14 10:34] LABS: INR 1.85 (0.90-1.11); Prothrombin Time 19.8 sec (9.9-11.9)
--- NOTE | 2021-11-14 11:03 | P.PN ---
Subjective Progress Note Date: 11/14/21 This is a 51-year-old female patient who follows with Dr. Max as her primary care provider. She has a history of hyperparathyroidism, cervical cancer, chronic neck and back pain, anxiety/panic disorder, hypothyroidism, obstructive sleep apnea intolerant to CPAP therapy, gastroesophageal reflux disease, diabetes mellitus, hyperlipidemia, previous myocardial infarction, recurrent DVT and massive pulmonary embolism and is maintained on lifelong anticoagulation in the form of warfarin. He presented here to the emergency room last evening with complaints of chest tightness and shortness of breath. This is a been occurring over the last couple of months but was worse over the last few days prior to her arrival. His been coming and going. No significant aggravating factors. No significant relieving factors. She states she felt some palpitations and was diaphoretic. No nausea. Chest x-ray revealed no acute cardiopulmonary process. EKG reveals normal sinus rhythm without ST or T wave abnormalities. Echocardiogram reveals preserved left ventricular systolic function with ejection fraction 50-55%. No significant valvular abnormalities. White count 3.5. Hemoglobin 14.2. INR 2.5. Sodium 132. Potassium 4.3. BUN 15. Creatinine 1.00. Glucose 3:30. Hemoglobin A1c 12.8. Troponin negative 3. ProBNP 116. Cholesterol 245. Triglycerides 196. LDL 161. HDL 44. She had previously been on metformin. She had been referred to endocrinology at her last appointment in our office in March 2021. She is seen today in consultation on the regular medical floor. She is resting quite comfortably in bed. Awake and alert in no acute distress. She states the chest discomfort is gone currently. She is maintaining good O2 saturations in the mid to upper 90s on room air. She's been afebrile. Hemodynamically stable. The patient is seen today 11/14/2021 in follow-up on the regular medical floor. She is sitting up in bed. Awake and alert in no acute distress. Maintaining O2 saturations in the mid 90s on room air. She's been afebrile. Hemodynamically stable. No further complaints of chest discomfort. No worsening shortness of breath cough or congestion. INR 1.85. Glucose 158. She is continued on Tradjenta and Amaryl. Objective - Vital Signs Vital signs: Vital Signs Temp 97.9 F 11/14/21 07:00 Pulse 63 11/14/21 07:00 Resp 16 05/05/22 07:00 BP 112/72 11/14/21 07:00 Pulse Ox 96 11/14/21 07:00 Intake & Output 11/13/21 11/14/21 11/14/21 18:59 06:59 18:59 Weight 90.718 kg Other: Voiding Method Toilet # Voids 3 2 - Exam GENERAL EXAM: Alert, obese 51-year-old female patient, on room air, comfortable in no apparent distress. HEAD: Normocephalic. EYES: Normal reaction of pupils, equal size. NOSE: Clear with pink turbinates. THROAT: No erythema or exudates. NECK: No masses, no JVD. CHEST: No chest wall deformity. LUNGS: Equal air entry with no crackles, wheeze, rhonchi or dullness. CVS: S1 and S2 normal with no audible murmur, regular rhythm. ABDOMEN: No hepatosplenomegaly, normal bowel sounds, no guarding or rigidity. SPINE: No scoliosis or deformity SKIN: No rashes CENTRAL NERVOUS SYSTEM: No focal deficits, tone is normal in all 4 extremities. EXTREMITIES: There is no peripheral edema. No clubbing, no cyanosis. Peripheral pulses are intact. - Labs CBC & Chem 7: 11/12/21 19:00 11/12/21 19:00 Labs: Abnormal Lab Results - Last 24 Hours (Table) 11/13/21 11/13/21 11/13/21 Range/Units 05:45 11:02 12:28 PT (9.9-11.9) sec INR (0.90-1.11) POC Glucose (mg/dL) 378 H 433 H (75-99) mg/dL Triglycerides 196.00 H (0.00-149.00) mg/dL Cholesterol 245.00 H (0.00-200.00) mg/dL LDL Cholesterol, Calc 161.4 H (0.0-131.0) mg/dL 11/13/21 11/13/21 11/13/21 Range/Units 13:31 17:14 21:01 PT (9.9-11.9) sec INR (0.90-1.11) POC Glucose (mg/dL) 297 H 111 H 224 H (75-99) mg/dL Triglycerides (0.00-149.00) mg/dL Cholesterol (0.00-200.00) mg/dL LDL Cholesterol, Calc (0.0-131.0) mg/dL 11/14/21 11/14/21 11/14/21 Range/Units 02:13 06:14 07:24 PT 19.8 H (9.9-11.9) sec INR 1.85 H (0.90-1.11) POC Glucose (mg/dL) 197 H 158 H (75-99) mg/dL Triglycerides (0.00-149.00) mg/dL Cholesterol (0.00-200.00) mg/dL LDL Cholesterol, Calc (0.0-131.0) mg/dL 11/14/21 Range/Units 10:04 PT (9.9-11.9) sec INR (0.90-1.11) POC Glucose (mg/dL) 265 H (75-99) mg/dL Triglycerides (0.00-149.00) mg/dL Cholesterol (0.00-200.00) mg/dL LDL Cholesterol, Calc (0.0-131.0) mg/dL Assessment and Plan Assessment: 1 Atypical chest discomfort. Acute coronary syndrome ruled out. Preserved left ventricular systolic function. 2 Diabetes mellitus, type II, poorly controlled. Hemoglobin A1c 12.8 3 Hyperlipidemia, currently not on statins 4 History of recurrent DVT/PE, maintained on warfarin, therapeutic 5 History of cervical cancer 6 Hyperparathyroidism, status post parathyroidectomy in 2019 7 Obesity with a BMI of 33 kg per metered squared 8 History of obstructive sleep apnea, intolerant to CPAP 9 Anxiety/panic disorder 10 History of chronic neck and back pain 11 Gastroesophageal reflux disease Plan: The patient was seen and evaluated Medications and labs reviewed Initiated on Tradjenta andAmaryl per medicine Continue statins Anti-coagulated with warfarin Follow-up in the office in 1 week I have personally seen and examined the patient, performed the documentation and the assessment and plan as written. Number of minutes spent on the visit: 10.
[2021-11-14 12:04] LABS: Glucose,Whole Blood 250 mg/dL (75-99)
[2021-11-14] MEDS: SERTRALINE 100 MG TAB PO SCH (12:57)
[2021-11-14] MEDS: LINAGLIPTIN 5 MG TABLET PO SCH (14:55)
[2021-11-14 15:50] LABS: Prothrombin Time 19.9 sec (9.0-12.0)
[2021-11-14 16:00] VITALS: BP 104/63; PULSE 69; RESP 18; TEMP 98.3
[2021-11-14] MEDS ORDERED: WARFARIN 1.5 MG TAB PO SCH (21:00)
--- NOTE | 2021-11-16 08:52 | P.DS ---
Providers Date of admission: 11/12/21 20:53 Attending physician: Kathy Escoto Consults: 11/12/21 20:57 Consult Physician Routine Consulting Provider: Lobo Max Consult Reason/Comments: sob Do you want consulting provider notified?: Yes Primary care physician: Lobo Max Hospital Course: Diagnoses: Chest pain, resolved rhic systems safety engineer cleared the patient for discharge Diabetes mellitus withhyperglycemia, present on admission Nonadherence to therapy prior to admission History of DVT and PE on Coumadin Hypertension History of GERD History of hyperlipidemia History of chronic back pain status post surgery History of anxiety and panic disorder Obesity with BMI of 53.3 Hospital course: This is a pleasant 51 years old female with past medical history of Diabetes Mellitus, Deep Vein Thrombosis on warfarin, GERD, and previous history of massive pulmonary embolism maintained on lifelong Coumadin, cervical cancer post-chemoradiation therapy, hypertension, hyperlipidemia,, chronic back pain and neck pain, previous laminectomy and lumbar spine fusion, Anxiety, Panic Disorder Patient presents because of chest pain, which is later on completely resolved. Collector already evaluated the patient and cleared her for discharge and follow-up as an outpatient with Dr. Tran in 1-2 weeks, patient informed and she agrees and call to make her own appointment. Patient also with diabetes mellitus and she has not been on medication for the last 4-5 years. Her hemoglobin A1c was elevated 12.8% patient informed and she agrees to start treatment. Patient was given linagliptin and Amaryl, her blood sugar is better controlled around 200 compared to around 400 upon admission. Glucometer is also provided for the patient with prescription upon discharge. Extensive instruction given for the patient regarding compliance therapy and monitor glucose and signs and symptoms of local causes and how to manage it. Patient verbalized understanding and acceptance. Coumadin and Her INR upon Discharge Was 2.0. Patient Was Instructed to Check Her INR in 2-3 Days and She Agrees. Problems and management plan were discussed with the patient and he verbalized understanding and acceptance Patient was found stable and can be discharged home however he needs follow-up as an outpatient. Patient was instructed to follow up with PCP Dr. Max within one week and patient agrees Patient was instructed to follow up with laundry laborer and Dr. Freeman/Dr. Gonzales in 1-2 weeks and she agrees to call and make appointment. Physical exam Gen: patient is a AAOx3, no distress CVS: S1-S2, RRR, no murmur Lungs: B/L CTA, no wheezing Abdomen: soft, no distention, no tenderness, positive bowel sounds Extremity: no leg edema or induration Time spent more than 35 minutes Patient Condition at Discharge: Fair Plan - Discharge Summary New Discharge Prescriptions: New Linagliptin [Tradjenta] 5 mg PO DAILY #30 tablet Glimepiride [Amaryl] 1 mg PO AC-BRKFST #30 tab Atorvastatin [Lipitor] 20 mg PO HS #30 tab Continue Sertraline [Zoloft] 200 mg PO DAILY Warfarin Sodium [Coumadin] 6 mg PO HS Metoprolol Succinate (ER) [Toprol XL] 25 mg PO BID Famotidine 40 mg PO HS Omeprazole Magnesium [PriLOSEC] 20 mg PO HS Discharge Medication List Sertraline [Zoloft] 200 mg PO DAILY 09/14/15 [History] Warfarin Sodium [Coumadin] 6 mg PO HS 11/16/15 [History] Metoprolol Succinate (ER) [Toprol XL] 25 mg PO BID 10/08/17 [History] Famotidine 40 mg PO HS 11/12/21 [History] Omeprazole Magnesium [PriLOSEC] 20 mg PO HS 11/12/21 [History] Atorvastatin [Lipitor] 20 mg PO HS #30 tab 11/13/21 [Rx] Glimepiride [Amaryl] 1 mg PO AC-BRKFST #30 tab 11/13/21 [Rx] Linagliptin [Tradjenta] 5 mg PO DAILY #30 tablet 11/13/21 [Rx] Follow up Appointment(s)/Referral(s): Johnnie Erazo MD [STAFF PHYSICIAN] - 2 Weeks Mik Olivas MD [REFERRING] - 1 Week (laundry laborer for your diabetes mellitus ) Renetta Freeman MD [STAFF PHYSICIAN] - 1 Week (laundry laborer for your diabetes mellitus ) Lobo Max MD [Primary Care Provider] - 1 Week Patient Instructions/Handouts: Chest Pain (DC), Diabetic Hyperglycemia (DC) Activity/Diet/Wound Care/Special Instructions: Activity is restricted till you see your doctor Low carbohydrate 1600 kcal per day we recommend to check your glucoses 4 times a day, before each meal and at bedtime, keep results in a log book and bring it to your doctor on your appointment date If your glucose less than 70 or more than 400, then call 911 on come to emergency room please recheck your INR IN 2-3 DAYS with your doctor Discharge/Stand Alone Forms: Community Resources Discharge Disposition: HOME SELF-CARE
== END 2021-11-14 17:05 | disposition home or self-care (01) ==
LOC: EC 17:57 → 6NMEDSUR 20:53
PROVIDERS: ADMIT Internal Medicine; ATTEND Internal Medicine
DX: R07.89 Other chest pain (principal); E11.65 Type 2 diabetes mellitus with hyperglycemia; E78.5 Hyperlipidemia, unspecified; I10 Essential (primary) hypertension; E03.9 Hypothyroidism, unspecified; G47.33 Obstructive sleep apnea (adult) (pediatric); K21.9 Gastro-esophageal reflux disease without esophagitis; F41.9 Anxiety disorder, unspecified; I25.2 Old myocardial infarction; R61 Generalized hyperhidrosis; R00.2 Palpitations; M19.90 Unspecified osteoarthritis, unspecified site; R51.9 Headache, unspecified; T46.3X5A Adverse effect of coronary vasodilators, initial encounter; G89.29 Other chronic pain; M54.2 Cervicalgia; M54.50 Low back pain, unspecified; F41.0 Panic disorder [episodic paroxysmal anxiety]; F32.A Depression, unspecified; F43.10 Post-traumatic stress disorder, unspecified; E66.9 Obesity, unspecified; Z68.43 Body mass index [BMI] 50.0-59.9, adult; Z91.19 Patient's noncompliance with other medical treatment and regimen; Z79.01 Long term (current) use of anticoagulants; Z79.899 Other long term (current) drug therapy; Z88.2 Allergy status to sulfonamides; Z86.711 Personal history of pulmonary embolism; Z86.718 Personal history of other venous thrombosis and embolism; Z85.41 Personal history of malignant neoplasm of cervix uteri; Z98.1 Arthrodesis status; Z92.21 Personal history of antineoplastic chemotherapy; Z92.3 Personal history of irradiation; Z90.49 Acquired absence of other specified parts of digestive tract; Z87.19 Personal history of other diseases of the digestive system; Z98.51 Tubal ligation status; Z98.891 History of uterine scar from previous surgery; Z98.890 Other specified postprocedural states; Z90.89 Acquired absence of other organs; Z80.9 Family history of malignant neoplasm, unspecified
CPT/HCPCS: 96361 ×2; 96374; 99285; 36415; 93005; 93306; 83880; 80061; 80053; 83735; 84484 ×2; 85025; 85610 ×3; 85730; 83036; 71046; G0378 ×3; J2060

== ENCOUNTER → 2022-10-07 | Outpatient (CLI) | payer SELFPAY ==
[2022-10-07 10:52] LABS: ALT 36 U/L (8-44); AST 22 U/L (13-35); African American GFR (CKD) 83.6 (60.0-200.0); Albumin 4.2 g/dL (3.8-4.9); Albumin/Globulin Ratio 1.67 (1.60-3.17); Alkaline Phosphatase 56 U/L (41-126); BUN/Creat Ratio 20.57 Ratio (12.00-20.00); Blood Urea Nitrogen 18.8 mg/dL (9.0-27.0); Carbon Dioxide 28.9 mmol/L (20.0-27.5); Chloride 103 mmol/L (96-109); Chol/HDL Ratio 5.15 Ratio; Globulin 2.5 g/dL (1.6-3.3); Glucose 119 mg/dL (70-110); LDL Cholesterol,Calculated 147.6 mg/dL (0.0-131.0); Non-African American GFR(CKD) 72.2 (60.0-200.0); Potassium 4.7 mmol/L (3.5-5.5); Sodium 142 mmol/L (135-145); Total Protein 6.7 g/dL (6.2-8.2)
[2022-10-07 14:30] LABS: Basophils # (A) 0.03 X 10*3/uL (0.00-0.10); Basophils % (A) 0.8 %; Eosinophils # (A) 0.11 X 10*3/uL (0.04-0.35); Eosinophils % (A) 2.9 %; HGB 13.3 g/dL (12.0-15.0); Immature Grans, Automated 0.3 %; Lymphocytes # (A) 1.38 X 10*3/uL (0.90-5.00); Lymphocytes % (A) 36.4 %; MCH 27.7 pg (27.0-32.0); MCHC 31.7 g/dL (32.0-37.0); MCV 87.5 fL (80.0-97.0); Mean Platelet Volume 12.2 fL (9.5-12.2); Monocytes # (A) 0.29 X 10*3/uL (0.20-1.00); Monocytes % (A) 7.7 %; NRBC Per 100 WBC 0 /100 WBCS (0.0-0.0); Neutrophils # (A) 1.97 X 10*3/uL (1.80-7.70); Neutrophils % (A) 51.9 %; Platelet Count 179 X 10*3/uL (140-440); RDW 13.4 % (11.5-14.5); WBC 3.79 X 10*3/uL (4.50-10.00)
[2022-10-07 17:37] LABS: INR 1.74 (0.90-1.11); Prothrombin Time 19.3 sec (9.9-11.9)
== END | disposition home or self-care (01) ==
LOC: LABWHC1 08:12
PROVIDERS: ATTEND Internal Medicine Critical Care Medicine
DX: I26.99 Other pulmonary embolism without acute cor pulmonale (principal); E78.5 Hyperlipidemia, unspecified; E04.1 Nontoxic single thyroid nodule; E11.65 Type 2 diabetes mellitus with hyperglycemia; E21.0 Primary hyperparathyroidism
CPT/HCPCS: 36415; 80053; 80061; 82043; 82570; 83036; 84439; 84443; 85025; 85610

== ENCOUNTER → 2022-12-27 | Outpatient (CLI) | payer OTHER ==
--- NOTE | 2022-12-27 19:56 | PE ---
EXAMINATION TYPE: PET CT fusion skull to thigh DATE OF EXAM: 12/27/2022 CLINICAL INDICATION:Female, 52 years old with history of C53.9 Cervical Ca; TECHNIQUE: Following the intravenous administration of 10.58 mCi of F-18 FDG, whole body images are performed from the skull base to the midthigh. Images are reviewed on the computer in the coronal, axial, and sagittal planes. Reconstructed rotating images are created on independent workstation and reviewed on the computer. A non-contrast CT is performed in conjunction with the PET scan. Glucose level 117 mg/dL COMPARISON: CT 12/27/2020, PET/CT 09/07/2020, FINDINGS: Mediastinal SUV mean is 1.8. Hepatic parenchyma SUV mean is 2.9. SKULL BASE AND NECK: No suspicious radiotracer activity. CHEST, MEDIASTINUM, AND HILAR REGION: No suspicious radiotracer activity. ABDOMEN AND PELVIS: No suspicious radiotracer activity. OSSEOUS STRUCTURES: No suspicious radiotracer activity. OTHER CT: The gallbladder surgically absent. Left nonobstructing calculus. Fat-containing umbilical h ernia. IMPRESSION: No suspicious radiotracer activity. No evidence for adenopathy.
== END | disposition home or self-care (01) ==
LOC: RADPETMAIN 10:59
PROVIDERS: ATTEND Internal Medicine Critical Care Medicine
DX: C53.9 Malignant neoplasm of cervix uteri, unspecified (principal)
CPT/HCPCS: 78815; A9552

== ENCOUNTER 2023-01-01 13:45 | Emergency (ER) | payer OTHER ==
[2023-01-01] MEDS ORDERED: OFLOXACIN 0.3% OPHTH DROPS 5 ML BOTTLE RIGHT EAR STA (14:53)
[2023-01-01] MEDS ORDERED: AMOXIC-POT CLAV 875-125MG 1 EACH TAB PO STA (14:53)
--- NOTE | 2023-01-01 15:05 | ED ---
General Adult HPI - General Chief complaint: ENT Stated complaint: Pain in Right Ear. Unable to hear Time Seen by Provider: 01/01/23 14:22 Source: patient, RN notes reviewed Mode of arrival: ambulatory Limitations: no limitations - History of Present Illness Initial comments: 52-year-old female presents to the emergency department complaining of right ear pain x1 day. Patient states that earlier today she noticed some pain in her ear followed by muffled hearing and drainage from the right ear. She states that she put a Q-tip in her ear after this and noticed a yellow drainage. She reports that she did not use a Q-tip prior to feeling the pain. Denies recent air travel or barotrauma. She reports that she has been coughing for the past 3 days. Denies fever. - Related Data Home Medications Medication Instructions Recorded Confirmed Sertraline [Zoloft] 200 mg PO DAILY 09/14/15 11/12/21 Warfarin Sodium [Coumadin] 6 mg PO HS 11/16/15 11/12/21 Metoprolol Succinate (ER) [Toprol 25 mg PO BID 10/08/17 11/12/21 XL] Famotidine 40 mg PO HS 11/12/21 11/12/21 Omeprazole Magnesium [PriLOSEC] 20 mg PO HS 11/12/21 11/12/21 Previous Rx's Medication Instructions Recorded Atorvastatin [Lipitor] 20 mg PO HS #30 tab 11/13/21 Glimepiride [Amaryl] 1 mg PO AC-BRKFST #30 tab 11/13/21 Linagliptin [Tradjenta] 5 mg PO DAILY #30 tablet 11/13/21 Amoxic-Pot Clav 875-125Mg 1 tab PO Q12HR #20 tab 01/01/23 [Augmentin 875-125] Allergies Allergy/AdvReac Type Severity Reaction Status Date / Time Sulfa (Sulfonamide Allergy Rash/Hives, Verified 01/01/23 14:20 Antibiotics) SHORTNESS OF BREATH Review of Systems ROS Statement: Those systems with pertinent positive or pertinent negative responses have been documented in the HPI. ROS Other: All systems not noted in ROS Statement are negative. Past Medical History Past Medical History: Cancer, Chest Pain / Angina, Diabetes Mellitus, Deep Vein Thrombosis (DVT), GERD/Reflux, Hyperlipidemia, Myocardial Infarction (AL), Pulmonary Embolus (PE) Additional Past Medical History / Comment(s): Recurrent DVT and previous history of massive pulmonary embolism maintained on lifelong antibiotic ventilation with Coumadin, cervical cancer post-chemoradiation therapy, hypertension, hyperlipidemia, acid reflux, anxiety, chronic back pain and neck pain, history of pancreatitis 2 post cholecystectomy, degenerative arthritis, previous laminectomy and lumbar spine fusion. Last Myocardial Infarction Date:: 2009 History of Any Multi-Drug Resistant Organisms: None Reported Past Surgical History: Back Surgery, Section, Cholecystectomy, Orthopedic Surgery, Tubal Ligation, Uterine Ablation Additional Past Surgical History / Comment(s): L4-5, L5-S1 LAMINECTOMY WITH DISCECTOMY. , D&C, CONE BX, SAY SLEEVE Past Anesthesia/Blood Transfusion Reactions: Previous Problems w/ Anesthesia Additional Past Anesthesia/Blood Transfusion Reaction / Comment(s): AWAKENED DURING SURGERY X2; SPINAL SINGH POST D&C, HAD BLOOD PATCH, Past Psychological History: Anxiety, Panic Disorder Smoking Status: Never smoker Past Alcohol Use History: None Reported Past Drug Use History: None Reported - Past Family History Mother Family Medical History: No Reported History Additional Family Medical History / Comment(s): no history Father Family Medical History: Cancer General Exam Limitations: no limitations General appearance: alert, in no apparent distress Head exam: Present: atraumatic, normocephalic, normal inspection Eye exam: Present: normal appearance, PERRL, EOMI. Absent: scleral icterus, conjunctival injection, periorbital swelling ENT exam: Present: normal oropharynx, mucous membranes moist. Absent: TM's normal bilaterally (Minimal visualization), normal external ear exam (purulent drainage, nonerythematous ear canal) Neck exam: Present: normal inspection. Absent: tenderness, meningismus, lymphadenopathy Respiratory exam: Present: normal lung sounds bilaterally. Absent: respiratory distress, wheezes, rales, rhonchi, stridor Cardiovascular Exam: Present: regular rate, normal rhythm, normal heart sounds. Absent: systolic murmur, diastolic murmur, rubs, gallop, clicks GI/Abdominal exam: Present: soft, normal bowel sounds. Absent: distended, tenderness, guarding, rebound, rigid Extremities exam: Present: normal inspection, full ROM, normal capillary refill. Absent: tenderness, pedal edema, joint swelling, calf tenderness Back exam: Present: normal inspection Neurological exam: Present: alert, oriented X3, CN II-XII intact Psychiatric exam: Present: normal affect, normal mood Skin exam: Present: warm, dry, intact, normal color. Absent: rash Course Vital Signs 01/01/23 01/01/23 14:17 15:29 Temperature 98.8 F 98.7 F Pulse Rate 73 71 Respiratory 20 18 Rate Blood Pressure 99/58 105/76 O2 Sat by Pulse 99 99 Oximetry Medical Decision Making - Medical Decision Making Was pt. sent in by a medical professional or institution (, ALEJANDRO, POWDER CUTTING OPERATOR, urgent care, hospital, or penitentiary...) When possible be specific @ -No Did you speak to anyone other than the patient for history (EMS, parent, family, police, friend...)? What history was obtained from this source @ -No Did you review nursing and triage notes (agree or disagree)? Why? @ -I reviewed and agree with nursing and triage notes Were old charts reviewed (outside hosp., previous admission, EMS record, old EKG, old radiological studies, urgent care reports/EKG's, penitentiary records)? Report findings @ -No old charts were reviewed Differential Diagnosis (chest pain, altered mental status, abdominal pain women, abdominal pain men, vaginal bleeding, weakness, fever, dyspnea, syncope, headache, dizziness, GI bleed, back pain, seizure, CVA, palpatations, mental health, musculoskeletal)? @ -otitis media, otitis externa, malignant otitis externa, perforated TM, this list is not all inclusive EKG interpreted by me (3pts min.). @ -none X-rays interpreted by me (1pt min.). @ -None done CT interpreted by me (1pt min.). @ -None done U/S interpreted by me (1pt. min.). @ -None done What testing was considered but not performed or refused? (CT, X-rays, U/S, labs)? Why? @ -None What meds were considered but not given or refused? Why? @ -None Did you discuss the management of the patient with other professionals (professionals i.e. ALEJANDRO Vincent, POWDER CUTTING OPERATOR, lab, RT, psych nurse, social scientist, fisher hand line, teacher, product safety officer, case management director)? Give summary @ -No Was smoking cessation discussed for >3mins.? @ -No Was critical care preformed (if so, how long)? @ -No Were there social determinants of health that impacted care today? How? (Homelessness, low income, unemployed, alcoholism, drug addiction, transportation, low edu. Level, literacy, decrease access to med. care, assisted, rehab)? @ -No Was there de-escalation of care discussed even if they declined (Discuss DNR or withdrawal of care, Hospice)? DNR status @ -No What co-morbidities impacted this encounter? (DM, HTN, Smoking, COPD, CAD, Cancer, CVA, ARF, Chemo, Hep., AIDS, mental health diagnosis, sleep apnea, morbid obesity)? @ -None Was patient admitted / discharged? Hospital course, mention meds given and route, prescriptions, significant lab abnormalities, going to OR and other pertinent info. @ -Discharged. Patient presented to the emergency department for chief complaint of right ear pain and decreased hearing in the right ear x1 day. On examination there is yellow drainage from the ear pinpoint perforation cannot be ruled out, ear canal is non-erythematous, minimal visualization of the TM able to be performed. Patient treated with non-ototoxic ear drops, ofloxacin along with Augmentin. Patient discharged in stable condition. Case discussed with my attending, Dr. Rodriguez Undiagnosed new problem with uncertain prognosis? @ -No Drug Therapy requiring intensive monitoring for toxicity (Heparin, Nitro, Insulin, Cardizem)? @ -No Were any procedures done? @ -No Diagnosis/symptom? @ -Otitis media Acute, or Chronic, or Acute on Chronic? @ -Acute Uncomplicated (without systemic symptoms) or Complicated (systemic symptoms)? @ -Uncomplicated Side effects of treatment? @ -No Exacerbation, Progression, or Severe Exacerbation? @ -No Poses a threat to life or bodily function? How? (Chest pain, USA, AL, pneumonia, PE, COPD, DKA, ARF, appy, cholecystitis, CVA, Diverticulitis, Homicidal, Suicidal, threat to staff... and all critical care pts) @ -No Disposition Clinical Impression: Otitis media Disposition: HOME SELF-CARE Condition: Stable Instructions (If sedation given, give patient instructions): Earache (ED) Additional Instructions: Instill 5 ear drops in the right ear twice a day for 7 days. Please return to the emergency department for new or worsening symptoms. Prescriptions: Amoxic-Pot Clav 875-125Mg [Augmentin 875-125] 1 tab PO Q12HR #20 tab Is patient prescribed a controlled substance at d/c from ED?: No Referrals: Lobo Max MD [Primary Care Provider] - 1-2 days Time of Disposition: 15:05
[2023-01-01 15:30] VITALS: BP 105/76; PULSE 71; RESP 18; TEMP 98.7
== END 2023-01-01 15:30 | disposition home or self-care (01) ==
LOC: EC 13:45
DX: H66.91 Otitis media, unspecified, right ear (principal); E11.9 Type 2 diabetes mellitus without complications; I10 Essential (primary) hypertension; I25.2 Old myocardial infarction; K21.9 Gastro-esophageal reflux disease without esophagitis; F41.9 Anxiety disorder, unspecified; Z79.01 Long term (current) use of anticoagulants; Z79.899 Other long term (current) drug therapy; Z86.711 Personal history of pulmonary embolism; Z86.718 Personal history of other venous thrombosis and embolism; Z88.2 Allergy status to sulfonamides
CPT/HCPCS: 99282

== ENCOUNTER → 2023-01-07 | Outpatient (CLI) | payer OTHER ==
--- NOTE | 2023-01-08 07:27 | MR ---
EXAMINATION TYPE: MR knee RT wo con DATE OF EXAM: 01/07/2023 COMPARISON: NONE HISTORY: Right knee pain and swelling for 2 months. TECHNIQUE: Multiplanar, multisequence images of the knee is performed without IV contrast. FINDINGS: MEDIAL MENISCUS: Posterior aspect posterior horn is irregularity with abnormal signal consistent with full thickness rim rent type tear. LATERAL MENISCUS: Anterior and posterior horns are intact without tear. CRUCIATE LIGAMENTS: The anterior and posterior cruciate ligaments are intact and unremarkable. COLLATERAL LIGAMENTS: The medial collateral ligament and lateral collateral ligament complex are inta ct and unremarkable. EXTENSOR MECHANISM: Visualized quadriceps and patellar tendons are intact. EFFUSION: No significant suprapatellar joint effusion. POPLITEAL CYST: No popliteal/acharya cyst. TRICOMPARTMENT SPACES: Moderate to borderline severe narrowing with mild spurring patellofemoral comp artment. Mild to moderate narrowing and spurring medial greater than lateral tibiofemoral compartment s. CARTILAGE: Chondromalacia patella with cartilaginous loss along the posterior patellar pole. BONE MARROW SIGNAL: Small focus of heterogeneous increased T2 signal inferior patella sagittal image 21. OTHER: Multiseptated cystic change just medial to the popliteal vessels probable synovial cyst sagitt al image 17 for reference measuring 2.8 cm craniocaudal dimension. IMPRESSION: 1. Full-thickness rim rent type tear posterior horn of the medial meniscus. 2. Tricompartment degenerative changes that are greatest where they are moderate to borderline advanc ed at the patellofemoral compartment as detailed above.
== END | disposition home or self-care (01) ==
LOC: RADMRIMAIN 06:05
PROVIDERS: ATTEND Orthopaedic Surgery
DX: S83.241A Other tear of medial meniscus, current injury, right knee, initial encounter (principal); M17.11 Unilateral primary osteoarthritis, right knee

== ENCOUNTER → 2023-03-04 | Outpatient (CLI) | payer OTHER ==
[2023-03-04 16:18] LABS: Basophils # (A) 0.02 X 10*3/uL (0.00-0.10); Basophils % (A) 0.6 %; Eosinophils # (A) 0.12 X 10*3/uL (0.04-0.35); Eosinophils % (A) 3.6 %; HCT 39.6 % (37.2-46.3); HGB 12.9 d/dL (12.0-15.0); Lymphocytes # (A) 1.18 X 10*3/uL (0.90-5.00); Lymphocytes % (A) 35.2 %; MCHC 32.6 d/dL (32.0-37.0); MCV 85.9 FL (80.0-97.0); Mean Platelet Volume 11.8 FL (9.5-12.2); Monocytes # (A) 0.23 X 10*3/uL (0.20-1.00); Monocytes % (A) 6.9 %; NRBC Per 100 WBC 0 X 10*3/uL (0.00-0.01); Neutrophils # (A) 1.79 X 10*3/uL (1.80-7.70); Neutrophils % (A) 53.4 %; Platelet Count 128 X 10*3/uL (140-440); RBC 4.61 X 10*6/uL (4.10-5.20); WBC 3.35 X 10*3/uL (4.50-10.00)
[2023-03-04 16:29] LABS: Anion Gap 10.1 mmol/L (4.00-12.00); Carbon Dioxide 27.9 mmol/L (21.6-31.8); Potassium 4.9 mmol/L (3.5-5.5)
== END | disposition home or self-care (01) ==
LOC: LABPAT 08:19
PROVIDERS: ATTEND Orthopaedic Surgery
DX: Z01.818 Encounter for other preprocedural examination (principal); M23.91 Unspecified internal derangement of right knee; R00.1 Bradycardia, unspecified
CPT/HCPCS: 80051; 85025; 93005

== ENCOUNTER 2023-03-05 08:04 | Day surgery (SDC) | payer OTHER ==
[2023-02-27 11:12] VITALS: BMI 35.6
--- NOTE | 2023-03-04 14:03 | HP ---
HISTORY AND PHYSICAL DATE OF SCHEDULED SURGERY: 03/05/2023. HISTORY OF PRESENT ILLNESS: Liliana Wiley is a 52-year-old patient seen with progressive right knee pain. We discussed options. She elected to proceed with right knee arthroscopy. Consent regarding procedure obtained. PAST MEDICAL HISTORY: Glf-qdyzsto-cjpofweew diabetes, hyperlipidemia, and hypertension. SURGICAL HISTORY: D and C, spine surgery. DAILY MEDICATIONS: 1. Metformin. 2. Metoprolol. 3. Motrin. 4. Prilosec. 5. Xanax. 6. Zoloft. ALLERGIES: Sulfa. SOCIAL HISTORY: She denies tobacco use. PHYSICAL EVALUATION OF THE RIGHT KNEE: Range of motion is 0 to 115 degrees. Mild effusion. Tenderness along the medial and lateral joint line. Positive medial Andre's. Positive lateral Andre's. Ligaments are stable. Hip rotation is without pain. Distal neurovascular exam is intact. IMAGING: Right knee radiographs revealed [id number] osteoarthritis. MRI of the right knee revealed a medial meniscal tear and osteoarthritic changes. IMPRESSION: 1. Internal derangement of right knee with medial meniscal tear. 2. Insulin-dependent diabetes. 3. Gastroesophageal reflux disease. PLAN: Arthroscopy right knee with partial medial meniscectomy and debridement. MMODL / IJN: [id number] /
[~2023-03-05 08:04] MED LIST changes: +DEXAMETHASONE SOD PHOSPHATE 4 MG/ML 1 ML VIAL IV ONE; +HYDROmorphone 0.5 MG/0.5 ML SYRINGE IVP PRN; +LIDOCAINE 1% (10MG/ML) FOR IV START INTRADERMA PRN; -LIDOCAINE 1% 20 ML VIAL (10MG/ML) FOR IV START INTRADERMA ONE; -LIDOCAINE 1% INJ 10MG/ML (20 ML MDV) ONE; +MIDAZOLAM 2 MG/2 ML VIAL IV PRN; +ONDANSETRON 4 MG/2 ML VIAL IVP ONE; -PROPOFOL 10 MG/ML 20 ML VIAL IV ONE
[2023-03-05 08:55] LABS: Glucose,Whole Blood 135 mg/dL (70-110)
[2023-03-05 09:14] LABS: INR 1.3 (<1.2); Prothrombin Time 12.9 sec (9.0-12.0)
[2023-03-05] MEDS ORDERED: LIDOCAINE 2% INJ 20 MG/ML (2 ML VIAL) ONE (09:17)
[2023-03-05] MEDS ORDERED: SUCCINYLCHOLINE CHLORIDE 200 MG/10 ML VIAL IV ONE (09:17)
[2023-03-05] MEDS ORDERED: KETOROLAC 15 MG/ML 1 ML VIAL ONE (09:17)
[2023-03-05] MEDS ORDERED: MIDAZOLAM 2 MG/2 ML VIAL ONE (09:17)
[2023-03-05] MEDS ORDERED: PROPOFOL 10 MG/ML 20 ML VIAL IV ONE (09:17)
[2023-03-05] MEDS ORDERED: fentaNYL (PF) 50 MCG/ML 2 ML AMP ONE (09:17)
[2023-03-05] MEDS ORDERED: LIDOCAINE 4% LTA KIT (4 ML) TOPICAL ONE (09:17)
[2023-03-05] MEDS ORDERED: BUPIVACAINE (PF) 0.25% 10 ML VIAL MISCELLANE ONE ×2 (09:23→09:53)
--- NOTE | 2023-03-05 10:06 | P.OP ---
Date of Procedure: 03/05/23 Preoperative Diagnosis: Internal derangement right knee Postoperative Diagnosis: 1. Tear medial and lateral meniscus right knee 2. Grade 4 chondromalacia femoral sulcus right knee 3. Reactive synovitis medial, lateral and suprapatellar compartments right knee 4. Grade 2 chondromalacia medial femoral condyle right knee Procedure(s) Performed: 1. Arthroscopic partial medial and lateral meniscectomy right knee 2. Arthroscopic microfracture femoral sulcus right knee 3. Arthroscopic partial synovectomy medial, lateral and suprapatellar compartments right knee 4. Arthroscopic chondroplasty medial femoral condyle right knee Anesthesia: MINGOA, local Surgeon: Zac Murguia Estimated Blood Loss (ml): 5 Pathology: none sent Condition: stable Disposition: PACU Indications for Procedure: 52-year-old patient seen with progressive right knee pain. After having treatment options discussed, she elected to proceed with arthroscopy. Operative Findings: See description of procedure Description of Procedure: Patient was taken to the operative suite. Patient underwent a general anesthetic by the department of anesthesia. Patient was given preoperative antibiotics. The right lower extremity was placed in a well-padded arthroscopic leg souza. The right leg was prepped and draped in the normal sterile orthopedic fashion. A lateral parapatellar and suprapatellar incision was made. Trochars were inserted. Arthroscopy was initiated. Suprapatellar pouch revealed diffuse thick reactive synovitis. The patellofemoral joint appeared to articulate congruently. There was grade 2 chondromalacia patella and grade 3/4 chondromalacia diffusely about the femoral sulcus. The scope was guided into the medial gutter. No loose bodies or plica were identified. The scope was then guided into the medial compartment. A medial parapatellar incision was made. Trocar inserted followed by probe. Was a radial tear involving the posterior horn of the medial meniscus. There was an area of grade 2 chondromalacia medial femoral condyle with osteochondral flap tear present. There was thick reactive synovitis anteriorly. I performed a partial medial meniscectomy getting down to stable meniscal tissue. I performed a chondroplasty of the medial femoral condyle getting down to stable osteochondral tissue. I performed a partial synovectomy decompressing the thick reactive some-itis anteriorly. The residual meniscus was probed and was found to be stable. There was good decompression of the synovitis. The osteochondral surface of medial femoral condyle appeared stable. Scope and probe were then guided into the intercondylar notch. Cruciates were identified, probed and found to be stable. The scope and probe were then guided into lateral compartment. There was a radial tear mid body lateral meniscus. There was no significant chondromalacia lateral compartment. There was some thick reactive synovitis anteriorly. I performed a partial lateral meniscectomy getting down to stable meniscal tissue. I performed a partial synovectomy decompressing the reactive synovitis anteriorly. The residual meniscus was stable. There was good decompression of the synovitis. The scope was in guided back into the suprapatellar compartment. I introduced the motorized shaver into the suprapatellar compartment. I performed a chondroplasty of the femoral sulcus getting on a stable osteochondral tissue. I performed a partial synovectomy decompressing the thick reactive synovitis. I did note an area of exposed bone along the central portion of the femoral sulcus. It was less than a centimeter in diameter. I introduced a microfracture awl. I performed a microfracture to that area penetrating the bone with resultant bleeding at the microfracture site. The residual osteochondral surface appeared stable. There was good decompression of the synovitis. I now took one more look around the entire knee, no residual debris. Instruments were now removed from the joint. The joint was infiltrated with .25% Marcaine. Steri-Strips were applied to the portal sites. Sterile dressings were applied. The patient was placed into a SOL hose. No tourniquet was utilized. The patient was awakened, transferred to a bed and taken to recovery stable satisfactory condition.
[2023-03-05 10:09] VITALS: TEMP 97.5
[2023-03-05 10:23] LABS: Glucose,Whole Blood 139 mg/dL (70-110)
[2023-03-05 11:21] VITALS: RESP 16
[2023-03-05] MEDS ORDERED: HYDROcodone/APAP 5-325MG 1 EACH TAB ONE (12:00)
[2023-03-05] MEDS ORDERED: HYDROcodone/APAP 5-325MG 1 EACH TAB PO ONE (12:01)
[2023-03-05 12:05] VITALS: PULSE 58
[2023-03-05 12:22] VITALS: BP 106/62
== END 2023-03-05 12:35 | disposition home or self-care (01) ==
LOC: OR 08:04
PROVIDERS: ATTEND Orthopaedic Surgery
DX: S83.281A Other tear of lateral meniscus, current injury, right knee, initial encounter (principal); S83.241A Other tear of medial meniscus, current injury, right knee, initial encounter; M94.261 Chondromalacia, right knee; E11.9 Type 2 diabetes mellitus without complications; E78.5 Hyperlipidemia, unspecified; I10 Essential (primary) hypertension; I25.10 Atherosclerotic heart disease of native coronary artery without angina pectoris; K21.9 Gastro-esophageal reflux disease without esophagitis; M65.161 Other infective (teno)synovitis, right knee; Z79.84 Long term (current) use of oral hypoglycemic drugs; Z79.891 Long term (current) use of opiate analgesic; Z79.83 Long term (current) use of bisphosphonates; Z88.2 Allergy status to sulfonamides; Z79.4 Long term (current) use of insulin; Z79.899 Other long term (current) drug therapy; Z79.1 Long term (current) use of non-steroidal anti-inflammatories (NSAID); Z90.49 Acquired absence of other specified parts of digestive tract; Z98.890 Other specified postprocedural states; Z79.85 Long-term (current) use of injectable non-insulin antidiabetic drugs
CPT/HCPCS: 29880; 29879; 85610; J2250; J0330; J1100; J0690; J2405; J3010; J1885; J2704; J2001; J0665

== ENCOUNTER → 2023-08-18 | Outpatient (CLI) | payer OTHER ==
--- NOTE | 2023-08-19 09:24 | MM ---
Reason for Exam: Screening (asymptomatic). Last mammogram was performed 6 year(s) and 6 month(s) ago. Patient History: Menarche at age 14. First Full-Term at age 23. Postmenopausal. Other cancer, age 45. Previous chemotherapy at age 45. Risk Values: Yennifer 5 year model risk: 0.9%. NCI Lifetime model risk: 7.1%. Prior Study Comparison: 02/20/2017 Bilateral Screening Mammogram, [facility]. Tissue Density: There are scattered fibroglandular densities. Findings: Analyzed By CAD. Right breast focal asymmetry upper medial aspect on MLO and CC views are more prominent compared to prior. This is approximately 8.0 cm from the nipple. Left breast There is no suspicious group of microcalcifications or new suspicious mass. Overall Assessment: Incomplete: need additional imaging evaluation, BI-RAD 0 Management: Diagnostic Mammogram of the right breast. [facility] will attempt to contact patient to return for supplemental views and ultrasound if indicated. Patient should continue monthly self-breast exams. A clinical breast exam by your physician is recommended on an annual basis. This exam should not preclude additional follow-up of suspicious palpable abnormalities. Note on Yennifer scores and lifetime risk: 1. A Yennifer score greater than 3% is considered moderate risk. If this is the case, consider specialist referral to assess eligibility for a risk reducing agent. 2. If overall lifetime risk for the development of breast cancer is 20% or higher, the patient may qualify for future screening with alternating mammogram and breast MRI. Electronically signed and approved by: Jaya Khalil DO
== END | disposition home or self-care (01) ==
LOC: RADMAMWWP 16:31
PROVIDERS: ATTEND Internal Medicine Critical Care Medicine
DX: Z12.31 Encounter for screening mammogram for malignant neoplasm of breast (principal); Z78.0 Asymptomatic menopausal state
CPT/HCPCS: 77067

== ENCOUNTER → 2023-08-20 | Outpatient (CLI) | payer OTHER ==
--- NOTE | 2023-08-20 14:26 | MM ---
Reason for Exam: Additional evaluation requested from abnormal screening. Last screening mammogram was performed less than 1 month ago. Patient History: Menarche at age 14. First Full-Term at age 23. Postmenopausal. Other cancer, age 45. Previous chemotherapy at age 45. Paternal aunt (great) had breast cancer at or over age 50. Risk Values: Yennifer 5 year model risk: 0.9%. NCI Lifetime model risk: 7.1%. Prior Study Comparison: 02/20/2017 Bilateral Screening Mammogram, [facility]. 08/18/2023 Bilateral MG screening mammo w CAD, [facility]. Tissue Density: Right: The breast tissue is heterogeneously dense. This may lower the sensitivity of mammography. Findings: Analyzed By CAD. Persistent nodular density right 12:00 position 7 cm from the nipple measuring 7 mm in size. Ultrasound is advised. Overall Assessment: Incomplete: need additional imaging evaluation, BI-RAD 0 Management: Diagnostic Breast Ultrasound of the right breast. . Results were given to the patient verbally at the time of exam. Patient should continue monthly self-breast exams. A clinical breast exam by your physician is recommended on an annual basis. This exam should not preclude additional follow-up of suspicious palpable abnormalities. Note on Yennifer scores and lifetime risk: 1. A Yennifer score greater than 3% is considered moderate risk. If this is the case, consider specialist referral to assess eligibility for a risk reducing agent. 2. If overall lifetime risk for the development of breast cancer is 20% or higher, the patient may qualify for future screening with alternating mammogram and breast MRI. Electronically signed and approved by: Jass Barcenas M.D. Radiologis
--- NOTE | 2023-08-20 14:53 | USB ---
Reason for Exam: Additional evaluation requested from abnormal screening. Patient History: Menarche at age 14. First Full-Term at age 23. Postmenopausal. Other cancer, age 45. Previous chemotherapy at age 45. Paternal aunt (great) had breast cancer at or over age 50. Risk Values: Yennifer 5 year model risk: 0.9%. NCI Lifetime model risk: 7.1%. Technique: Method: Targeted. Prior Study Comparison: 02/20/2017 Bilateral Screening Mammogram, [facility]. 08/18/2023 Bilateral MG screening mammo w CAD, [facility]. Findings: The upper inner quadrant of the right breast, the axilla of the right breast and the retroareolar of the right breast were scanned. Smoothly marginated cyst at the right 12:00 position 7 cm from the nipple measuring 5 x 4 mm. No solid mass is seen. Overall Assessment: Benign, BI-RAD 2 Management: Screening Mammogram of both breasts in 1 year. A clinical breast exam by your physician is recommended on an annual basis and results should be correlated with mammographic findings. This exam should not preclude additional follow-up of suspicious palpable abnormalities. Results were given to the patient verbally at the time of exam. Electronically signed and approved by: Jass Barcenas M.D. Radiologis
== END | disposition home or self-care (01) ==
LOC: RADMAMWWP 13:37
PROVIDERS: ATTEND Internal Medicine Critical Care Medicine
DX: R92.8 Other abnormal and inconclusive findings on diagnostic imaging of breast (principal); Z78.0 Asymptomatic menopausal state; Z80.3 Family history of malignant neoplasm of breast
CPT/HCPCS: 77065; 76642; G0279; 77061

== ENCOUNTER → 2023-12-01 | Outpatient (CLI) | payer OTHER ==
[2023-12-01 10:38] VITALS: BP 116/75; PULSE 77; RESP 16
--- NOTE | 2023-12-01 14:20 | P.PAINPG ---
PQRS Measure Charge Sheet Comment: HISTORY OF PRESENT ILLNESS: A 53 yr old female as a referral from Dr Max presents today w severe and chronic LBP > 10 yrs secondary to post laminectomy syndrome for evaluation. Pt states pain level is provoked at 10 /10 in intensity, constant, localized in the lumbar spine, predominantly axial, stabbing in character w occasional shooting pain towards the buttocks and LEs. Pain is provoked by any activity. Pain is alleviated by PT x 6 wks in 2014,, medications ([place], Flexeril, Ibu), THC Gummies, Hemp topical, repositioning and rest . Oswestry axial pain score at 28. PMH: OA, Cervical CA, HTN, Hyperlipidemia, Angina, NIDDM II, Recurrent DVTs, GERD, Hyperlipidemia, WI (2009), PE, Pancreatitis post cholecystectomy, MDD/ Anxiety PSH: L4-S1 Laminectomy/ Discectomy/ Fusion, D&C, Cone Biopsy, Drake Sleeve, C Section, Cholecystectomy, Tubal Ligation, Uterine Ablation SH: Never smoker, No ETOH abuse, Cannabis use FH: Mo- No Reported History. Fa- CA All: See list Meds: See list including Coumadin REVIEW OF ORGAN SYSTEMS: CONSTITUTIONAL: No fevers or chills. No recent weight loss. NEUROLOGICAL: + numbness and tingling along the distal extremities. No seizure disorders or headaches. MUSCULOSKELETAL: + pain PSYCHIATRIC: Denies current depression or suicidal thoughts. Physical Examinations : Constitutional : Cooperative , not in acute distress . Neurologic : Cranial nerve II to XII intact. No focal neurological deficits. Psychiatric : alert & oriented x 3. Matching mood & appropriate affect. Judgment & insight intact. Musculoskeletal : Cervical Spine Motor strength in the deltoid and biceps: Normal right side. Normal Left side Motor strength biceps and the wrist extensors: Normal right side . Normal left side Motor strength in the triceps muscle: Normal right side. Normal left side Deep tendon reflexes: Normal at the biceps. Normal at Brachioradialis. Normal at triceps Vertebral body tenderness to deep palpation over Cervical facet loading test: positive bilaterally Spurling test: positive bilaterally Neck distraction test: positive bilaterally Ludmila sign: positive bilaterally Lumbar spine Motor strength lower extremities ,thigh and legs 5/5 Right side , 5/5 Left side Deep tendon reflexes : Normal Knee Jerk. Normal Ankle Jerk Vertebral body tenderness over Contreras Test positive Lumbar facet Loading Test: positive Right / positive Left Range of motion of the lumbar spine Flexion 30 degrees, extension 10 degrees Straight Leg Raise test: Left/ Right positive at degrees Panda test: positive right / positive left. Severe tenderness over the Sacroiliac joint on the Right / Left sides Gaenslen test: positive bilaterally Seated flexion test: positive bilaterally. Sacral spine : Severe tenderness over the Sacroiliac joint: right side / left side Range of motion: Flexion of the lumbar spine <60 degrees Range of motion: Extension of the lumbar spine <20 degrees Gaenslen's Test positive Panda test: positive right side / left side Thigh Thrust Test Sacral Thrust Test Imaging: MRI noncontrast of the R Knee from 01/07/2023 reviewed Assessment/ Plan : Post laminectomy syndrome, L4-S1 Laminectomy/ Disectomy/ Fusion Referral to Dr Medina for possible SCS or pain pump placement G89.4 Disintersted in injections due to history of ANIKA in 2009. All questions answered. I have spent greater than 30 minutes on patient care today. Dr Stuart was available by phone for the evaluation of this patient. The time was used to review the medical records including relevant urine studies and Prescription history (MAPs), review of the available imaging, evaluation and examination of the patient, coordination of care with the medical staff and if applicable referring physicians, as well as creation of the medical record PQRS Narrative: Smoking Status Never smoker Home Medications: Ambulatory Orders Sertraline [Zoloft] 200 mg PO QAM 09/14/15 Warfarin Sodium [Coumadin] 6 mg PO HS 11/16/15 Metoprolol Succinate (ER) [Toprol XL] 25 mg PO BID 10/08/17 Famotidine 40 mg PO HS 11/12/21 Omeprazole Magnesium [PriLOSEC] 20 mg PO HS 11/12/21 Glimepiride [Amaryl] 1 mg PO AC-BRKFST #30 tab 11/13/21 Cyclobenzaprine [Flexeril] 5 mg PO BID PRN 02/27/23 Lovenox (Unknown Dose) 1 dose SQ BID 02/27/23 Trulicity (Unknown Dose) 1 dose SQ MO 02/27/23 metFORMIN HCL 500 mg PO DAILY 02/27/23 HYDROcodone/APAP 5-325MG [[place] 5-325] 1 tab PO Q6HR PRN #12 tab 03/05/23 Controlled Substance Measures - Controlled Substance Measures Is patient prescribed a controlled substance at discharge?: No
== END ==
LOC: PNWHC3 09:32
PROVIDERS: ATTEND Specialist
DX: M54.2 Cervicalgia (principal); M25.561 Pain in right knee; M47.816 Spondylosis without myelopathy or radiculopathy, lumbar region; M96.1 Postlaminectomy syndrome, not elsewhere classified; Z98.1 Arthrodesis status; Z88.2 Allergy status to sulfonamides
CPT/HCPCS: 99211

== ENCOUNTER 2024-08-14 14:24 | Observation (INO) | payer OTHER ==
--- NOTE | 2024-08-14 15:29 | ED ---
General Adult HPI - General Chief complaint: Extremity Problem,Nontraumatic Stated complaint: Pain in left leg Time Seen by Provider: 08/14/24 14:50 Source: patient, RN notes reviewed Mode of arrival: ambulatory Limitations: no limitations - History of Present Illness Initial comments: Patient is a pleasant 53-year-old female present to the emergency department with concerns with some chest discomfort, dyspnea, and left leg discomfort. Patient does have history of embolism in her leg and lungs. Patient did have biopsy of her neck done a couple weeks ago and needed to be off of her Coumadin. Patient states she was off of her Coumadin and Lovenox for around a total of 10 of the past 14 days as she had some difficulty taking the medication and getting it. Patient states symptoms started yesterday. Patient states symptoms are both mild. Patient has had mild tightness in her chest with some dyspnea. Now near resolved. Patient has also had some left leg discomfort, very mild. No fever. - Related Data Home Medications Medication Instructions Recorded Confirmed Sertraline [Zoloft] 200 mg PO QAM 09/14/15 12/01/23 Warfarin Sodium [Coumadin] 6 mg PO HS 11/16/15 12/01/23 Metoprolol Succinate (ER) [Toprol 25 mg PO BID 10/08/17 12/01/23 XL] Famotidine 40 mg PO HS 11/12/21 12/01/23 Omeprazole Magnesium [PriLOSEC] 20 mg PO HS 11/12/21 12/01/23 Cyclobenzaprine [Flexeril] 5 mg PO BID PRN 02/27/23 12/01/23 Lovenox (Unknown Dose) 1 dose SQ BID 02/27/23 12/01/23 Trulicity (Unknown Dose) 1 dose SQ MO 02/27/23 12/01/23 metFORMIN HCL 500 mg PO DAILY 02/27/23 12/01/23 Previous Rx's Medication Instructions Recorded Glimepiride [Amaryl] 1 mg PO AC-BRKFST #30 tab 11/13/21 HYDROcodone/APAP 5-325MG [Rattan 1 tab PO Q6HR PRN #12 tab 03/05/23 5-325] Allergies Allergy/AdvReac Type Severity Reaction Status Date / Time Sulfa (Sulfonamide Allergy Rash/Hives, Verified 08/14/24 14:32 Antibiotics) SHORTNESS OF BREATH Review of Systems ROS Statement: Those systems with pertinent positive or pertinent negative responses have been documented in the HPI. ROS Other: All systems not noted in ROS Statement are negative. Constitutional: Denies: fever Eyes: Denies: eye pain ENT: Denies: ear pain Respiratory: Reports: as per HPI Cardiovascular: Reports: as per HPI Gastrointestinal: Denies: abdominal pain Musculoskeletal: Reports: as per HPI. Denies: back pain Past Medical History Past Medical History: Cancer, Chest Pain / Angina, Diabetes Mellitus, Deep Vein Thrombosis (DVT), GERD/Reflux, Hearing Disorder / Deafness, Hyperlipidemia, Liver Disease, Myocardial Infarction (ID), Musculoskeletal Disorder, Osteoarthritis (OA), Pulmonary Embolus (PE) Additional Past Medical History / Comment(s): Recurrent DVT and previous history of massive pulmonary embolism maintained on lifelong Coumadin. Hx cervical cancer with chemo/radiation/brachy therapy in 2016. Low blood pressure. Chronic back and neck pain. Hx pancreatitis X2 post cholecystectomy. Degenerative Disc Disease, Degenerative Arthritis, Failed Back Syndrome. Hx elevated liver enzymes. Poor vision. Some hearing loss in right ear. Sharp stabbing pain in toes and left groin this week, advised to notify Dr. Last Myocardial Infarction Date:: 2009 History of Any Multi-Drug Resistant Organisms: None Reported Past Surgical History: Back Surgery, Section, Cholecystectomy, Orthopedic Surgery, Tubal Ligation, Uterine Ablation Additional Past Surgical History / Comment(s): L4-5, L5-S1 LAMINECTOMY WITH DISCECTOMY, D&C, CONE BIOPSY, SAY SLEEVE FOR BRACHYTHERAPY, LATER REMOVED, 3 1/2 out of 4 parathyroid glands removed. Past Anesthesia/Blood Transfusion Reactions: Previous Problems w/ Anesthesia Additional Past Anesthesia/Blood Transfusion Reaction / Comment(s): AWAKENED DURING SURGERY X2, SPINAL HEADACHE POST D&C, HAD BLOOD PATCH. Past Psychological History: Anxiety, Panic Disorder, PTSD Smoking Status: Never smoker Past Alcohol Use History: Rare Past Drug Use History: Marijuana - Past Family History Mother Additional Family Medical History / Comment(s): no history Father Family Medical History: Cancer General Exam Limitations: no limitations General appearance: alert, in no apparent distress Head exam: Present: normocephalic Eye exam: Present: normal appearance Neck exam: Present: normal inspection Respiratory exam: Present: normal lung sounds bilaterally. Absent: chest wall tenderness Cardiovascular Exam: Present: regular rate, normal rhythm, normal heart sounds Expanded Peripheral pulses: 2+: Radial (R), Radial (L), Dorsalis Pedis (R), Dorsalis Pedis (L) GI/Abdominal exam: Present: soft. Absent: tenderness Extremities exam: Present: calf tenderness (Left-sided). Absent: pedal edema Neurological exam: Present: alert Psychiatric exam: Present: normal affect, normal mood Skin exam: Present: normal color Course Vital Signs 08/14/24 14:25 Temperature 98.5 F Pulse Rate 83 Respiratory 16 Rate Blood Pressure 132/83 O2 Sat by Pulse 98 Oximetry EKG Findings - EKG Results: EKG: interpreted by ERMD, sinus rhythm, normal axis, normal QRS, normal ST/T Medical Decision Making - Medical Decision Making MDM back was pt. sent in by a medical professional or institution (, PA, HEATING AND COOLING SYSTEMS ENGINEER, urgent care, hospital, or long-term...) When possible be specific @ -No Did you speak to anyone other than the patient for history (EMS, parent, family, police, friend...)? What history was obtained from this source @ -No Did you review nursing and triage notes (agree or disagree)? Why? @ -I reviewed and agree with nursing and triage notes Were old charts reviewed (outside hosp., previous admission, EMS record, old EKG, old radiological studies, urgent care reports/EKG's, long-term records)? Report findings @ -No old charts were reviewed Differential Diagnosis (chest pain, altered mental status, abdominal pain women, abdominal pain men, vaginal bleeding, weakness, fever, dyspnea, syncope, headache, dizziness, GI bleed, back pain, seizure, CVA, palpatations, mental health, musculoskeletal)? @ -[facility] differential differential Chest Pain: Stable Angina, Unstable Angina, STEMI, NSTEMI Aortic Dissection, Pneumothorax, Musculoskeletal, Esophageal Spasm GERD, Cholecystitis, Pancreatitis, Zoster, this is not meant to be an all-inclusive list. EKG interpreted by me (3pts min.). @ -As above X-rays interpreted by me (1pt min.). @ -Chest x-ray shows no acute process CT interpreted by me (1pt min.). @ -CT angio of the chest negative for pulmonary embolism U/S interpreted by me (1pt. min.). @ -Ultrasound negative for DVT What testing was considered but not performed or refused? (CT, X-rays, U/S, labs)? Why? @ -None What meds were considered but not given or refused? Why? @ -None Did you discuss the management of the patient with other professionals (professionals i.e. , PA, HEATING AND COOLING SYSTEMS ENGINEER, lab, RT, psych nurse, group social worker, atomic fuel assembler, teacher, licensed loan officer assistant, case management rn)? Give summary @ -Case was discussed with Dr. Holland who will admit covering hospital call Was smoking cessation discussed for >3mins.? @ -No Was critical care preformed (if so, how long)? @ -No Were there social determinants of health that impacted care today? How? (Homelessness, low income, unemployed, alcoholism, drug addiction, transportation, low edu. Level, literacy, decrease access to med. care, senior care, rehab)? @ -No Was there de-escalation of care discussed even if they declined (Discuss DNR or withdrawal of care, Hospice)? DNR status @ -No What co-morbidities impacted this encounter? (DM, HTN, Smoking, COPD, CAD, Cancer, CVA, ARF, Chemo, Hep., AIDS, mental health diagnosis, sleep apnea, morbid obesity)? @ -History of coagulopathy and embolism. Patient is on anticoagulation however has missed multiple doses. Was patient admitted / discharged? Hospital course, mention meds given and route, prescriptions, significant lab abnormalities, going to OR and other pertinent info. @ -Patient presents with chest discomfort and dyspnea as well as leg discomfort. Evaluation unremarkable. Patient will be admitted with cardiac consult. Admission orders written. Patient reevaluated and updated. Coumadin should be held secondary to mild coagulopathy Undiagnosed new problem with uncertain prognosis? @ -No Drug Therapy requiring intensive monitoring for toxicity (Heparin, Nitro, Insulin, Cardizem)? @ -No Were any procedures done? @ -No Diagnosis/symptom? @ -Chest pain Acute, or Chronic, or Acute on Chronic? @ -Acute Uncomplicated (without systemic symptoms) or Complicated (systemic symptoms)? @ -Complicated with mild coagulopathy Side effects of treatment? @ -No Exacerbation, Progression, or Severe Exacerbation? @ -No Poses a threat to life or bodily function? How? (Chest pain, USA, ID, pneumonia, PE, COPD, DKA, ARF, appy, cholecystitis, CVA, Diverticulitis, Homicidal, Suicidal, threat to staff... and all critical care pts) @ -Threat to cardiac function - Lab Data Result diagrams: 08/14/24 15:55 08/14/24 15:55 Lab Results 08/14/24 08/14/24 08/14/24 Range/Units 15:55 15:55 15:55 WBC 4.0 (3.8-10.6) k/uL RBC 4.45 (3.80-5.40) m/uL Hgb 12.5 (11.4-16.0) gm/dL Hct 37.5 (34.0-46.0) % MCV 84.2 (80.0-100.0) fL MCH 28.1 (25.0-35.0) pg MCHC 33.4 (31.0-37.0) g/dL RDW 14.1 (11.5-15.5) % Plt Count 150 (150-450) k/uL MPV 8.2 Neutrophils % 66 % Lymphocytes % 28 % Monocytes % 4 % Eosinophils % 1 % Basophils % 0 % Neutrophils # 2.6 (1.3-7.7) k/uL Lymphocytes # 1.1 (1.0-4.8) k/uL Monocytes # 0.2 (0-1.0) k/uL Eosinophils # 0.1 (0-0.7) k/uL Basophils # 0.0 (0-0.2) k/uL PT 47.6 H (10.0-12.5) sec INR 4.8 H (<1.2) APTT 36.0 H (22.0-30.0) sec Sodium 138 (137-145) mmol/L Potassium 3.7 (3.5-5.1) mmol/L Chloride 103 (98-107) mmol/L Carbon Dioxide 27 (22-30) mmol/L Anion Gap 8 mmol/L BUN 13 (7-17) mg/dL Creatinine 0.82 (0.52-1.04) mg/dL Est GFR (CKD-EPI)AfAm >90 (>60 ml/min/1.73 sqM) Est GFR (CKD-EPI)NonAf 82 (>60 ml/min/1.73 sqM) Glucose 162 H (74-99) mg/dL Plasma Lactic Acid Trevor (0.7-2.0) mmol/L Calcium 8.3 L (8.4-10.2) mg/dL Magnesium 1.5 L (1.6-2.3) mg/dL Total Bilirubin 0.4 (0.2-1.3) mg/dL AST 24 (14-36) U/L ALT 23 (4-34) U/L Alkaline Phosphatase 74 (38-126) U/L Troponin I (0.000-0.034) ng/mL NT-Pro-B Natriuret Pep 88 pg/mL Total Protein 6.6 (6.3-8.2) g/dL Albumin 4.0 (3.5-5.0) g/dL 08/14/24 08/14/24 Range/Units 15:55 15:55 WBC (3.8-10.6) k/uL RBC (3.80-5.40) m/uL Hgb (11.4-16.0) gm/dL Hct (34.0-46.0) % MCV (80.0-100.0) fL MCH (25.0-35.0) pg MCHC (31.0-37.0) g/dL RDW (11.5-15.5) % Plt Count (150-450) k/uL MPV Neutrophils % % Lymphocytes % % Monocytes % % Eosinophils % % Basophils % % Neutrophils # (1.3-7.7) k/uL Lymphocytes # (1.0-4.8) k/uL Monocytes # (0-1.0) k/uL Eosinophils # (0-0.7) k/uL Basophils # (0-0.2) k/uL PT (10.0-12.5) sec INR (<1.2) APTT (22.0-30.0) sec Sodium (137-145) mmol/L Potassium (3.5-5.1) mmol/L Chloride (98-107) mmol/L Carbon Dioxide (22-30) mmol/L Anion Gap mmol/L BUN (7-17) mg/dL Creatinine (0.52-1.04) mg/dL Est GFR (CKD-EPI)AfAm (>60 ml/min/1.73 sqM) Est GFR (CKD-EPI)NonAf (>60 ml/min/1.73 sqM) Glucose (74-99) mg/dL Plasma Lactic Acid Trevor 1.4 (0.7-2.0) mmol/L Calcium (8.4-10.2) mg/dL Magnesium (1.6-2.3) mg/dL Total Bilirubin (0.2-1.3) mg/dL AST (14-36) U/L ALT (4-34) U/L Alkaline Phosphatase (38-126) U/L Troponin I <0.012 (0.000-0.034) ng/mL NT-Pro-B Natriuret Pep pg/mL Total Protein (6.3-8.2) g/dL Albumin (3.5-5.0) g/dL Disposition Clinical Impression: Chest pain Disposition: ADMITTED IP TO THIS HOSP Is patient prescribed a controlled substance at d/c from ED?: No Referrals: None,Stated [Primary Care Provider] - 1-2 days Time of Disposition: 17:57
[2024-08-14 16:05] LABS: Basophils % (A) 0 %; Eosinophils # (A) 0.1 k/uL (0-0.7); Eosinophils % (A) 1 %; HCT 37.5 % (34.0-46.0); HGB 12.5 gm/dL (11.4-16.0); Lymphocytes # (A) 1.1 k/uL (1.0-4.8); Lymphocytes % (A) 28 %; MCH 28.1 pg (25.0-35.0); MCHC 33.4 g/dL (31.0-37.0); MCV 84.2 fL (80.0-100.0); Mean Platelet Volume 8.2; Monocytes # (A) 0.2 k/uL (0-1.0); Monocytes % (A) 4 %; Neutrophils # (A) 2.6 k/uL (1.3-7.7); Neutrophils % (A) 66 %; Platelet Count 150 k/uL (150-450); RBC 4.45 m/uL (3.80-5.40); RDW 14.1 % (11.5-15.5)
[2024-08-14 16:13] LABS: INR 4.8 (<1.2); Prothrombin Time 47.6 sec (10.0-12.5)
[2024-08-14 16:21] LABS: ALT 23 U/L (4-34); AST 24 U/L (14-36); African American GFR (CKD) >90 (>60 ml/min/1.73 sqM); Alkaline Phosphatase 74 U/L (38-126); Anion Gap 8 mmol/L; Blood Urea Nitrogen 13 mg/dL (7-17); Calcium 8.3 mg/dL (8.4-10.2); Carbon Dioxide 27 mmol/L (22-30); Chloride 103 mmol/L (98-107); Glucose 162 mg/dL (74-99); Magnesium 1.5 mg/dL (1.6-2.3); Non-African American GFR(CKD) 82 (>60 ml/min/1.73 sqM); Potassium 3.7 mmol/L (3.5-5.1); Sodium 138 mmol/L (137-145); Total Bilirubin 0.4 mg/dL (0.2-1.3); Total Protein 6.6 g/dL (6.3-8.2)
[2024-08-14 16:30] LABS: NT-Pro-B-Type Natriuretic Pept 88 pg/mL
--- NOTE | 2024-08-14 16:37 | US ---
EXAMINATION TYPE: US venous doppler duplex LE LT DATE OF EXAM: 08/14/2024 4:32 PM COMPARISON: NONE CLINICAL INDICATION: Female, 53 years old with history of pain; Left leg pain, h/o DVT in 2009, curre ntly on blood thinners, Pain TECHNIQUE: The lower extremity deep venous system is examined utilizing real time linear array sonog axel with graded compression, color doppler sonography, and spectral doppler. SIDE PERFORMED: Left FINDINGS: VESSELS IMAGED: Common Femoral Vein Deep Femoral Vein Greater Saphenous Vein * Femoral Vein Popliteal Vein Small Saphenous Vein * Proximal Calf Veins (* superficial vessels) Left Leg: Appears Negative for DVT, Color Doppler imaging shows patency of the vessels. Spectral wav eforms are within normal limits. IMPRESSION: No ultrasound evidence for deep venous thrombosis. [facility], , 08/14/2024 4:35 PM
--- NOTE | 2024-08-14 16:38 | XR ---
EXAMINATION TYPE: XR chest 2V DATE OF EXAM: 08/14/2024 4:19 PM COMPARISON: Previous chest radiograph 11/12/2021. CLINICAL INDICATION: Female, 53 years old with history of difficulty breathing; [facility] TECHNIQUE: XR chest 2V Frontal and lateral views of the chest. FINDINGS: Lungs/Pleura: There is no evidence of pleural effusion, focal consolidation, or pneumothorax. Pulmonary vascularity: Unremarkable. Heart/mediastinum: Cardiomediastinal silhouette is unremarkable. Musculoskeletal: No acute osseous pathology. Other findings: None IMPRESSION: No acute cardiopulmonary disease/process. [facility], , 08/14/2024 4:35 PM
--- NOTE | 2024-08-14 17:09 | CT ---
EXAMINATION TYPE: CT angio chest DATE OF EXAM: 08/14/2024 5:01 PM COMPARISON: Previous CT chest angiogram study dated 10/08/2017. CLINICAL INDICATION: Female, 53 years old with history of prince; chest pain TECHNIQUE/CONTRAST: CTA scan of the thorax is performed with IV Contrast, patient injected with 100 mL of Isovue 370, MIP images are created and reviewed these are created on a separate workstation.. CT DLP: 406.7 mGycm, Automated exposure control for dose reduction was used. FINDINGS: Pulmonary Artery: There is no evidence for a filling defect within the pulmonary vasculature to sugge st acute pulmonary embolism. The pulmonary artery is of normal size. Lungs/Pleura: No evidence of focal consolidation, pleural effusion or pneumothorax. Airway: Large airways are patent. Heart: Heart is within normal limits for size. Vasculature: No evidence of aortic aneurysm. Mediastinum: No gross evidence of adenopathy. Musculoskeletal: No acute osseous abnormalities Soft Tissues/lymph nodes: Unremarkable. Lower neck: No significant findings. Upper Abdomen: No significant acute findings. Mild splenomegaly. Gallbladder surgically absent. Hepat ic steatosis. IMPRESSION: No evidence of acute pulmonary embolism or acute pulmonary pathology. [facility], , 08/14/2024 5:07 PM
[2024-08-14] MEDS ORDERED: NITROGLYCERIN SL TABS 0.4 MG TAB SUBLINGUAL PRN (17:57)
[2024-08-14] MEDS: ASPIRIN 81 MG PO STA (18:13)
[2024-08-14] MEDS ORDERED: DEXTROSE 50% SYRINGE 50 ML IVP PRN ×2 (21:52)
[2024-08-14] MEDS ORDERED: ONDANSETRON 4 MG/2 ML VIAL IVP PRN (21:54)
[2024-08-14] MEDS: HYDROcodone/APAP 5-325MG 1 EACH TAB PO PRN (22:18)
[2024-08-14] MEDS: GABAPENTIN 300 MG CAP PO SCH (22:18)
[2024-08-14] MEDS: ALPRAZolam 0.5 MG TAB PO PRN (22:19)
[2024-08-14] MEDS: METOPROLOL SUCCINATE (ER) 25 MG TAB.ER.24H PO SCH (22:21)
--- NOTE | 2024-08-14 22:44 | P.HPIM ---
History of Present Illness H&P Date: 08/14/24 Chief Complaint: Chest pain Patient is a pleasant 53-year-old female present to the emergency department with concerns with some chest discomfort, dyspnea, and left leg discomfort. Patient does have history of embolism in her leg and lungs. Patient did have biopsy of her neck done a couple weeks ago and needed to be off of her Coumadin. Patient states she was off of her Coumadin and Lovenox for around a total of 10 of the past 14 days as she had some difficulty taking the medication and getting it. Patient states symptoms started yesterday. Patient states symptoms are both mild. Patient has had mild tightness in her chest with some dyspnea. Now near resolved. Patient has also had some left leg discomfort, very mild. No fever. Blood work completed in ED is unremarkable except for elevated INR of 4.8, calcium low at 8.3 and low magnesium of 1.5 EKG does not reveal any acute ST or T wave changes Review of Systems REVIEW OF SYSTEMS: CONSTITUTIONAL: No fever, no malaise, no fatigue. HEENT: No recent visual problems or hearing problems. Denied any sore throat. CARDIOVASCULAR: No chest pain, orthopnea, PND, no palpitations, no syncope. PULMONARY: No shortness of breath, no cough, no hemoptysis. GASTROINTESTINAL: No diarrhea, no nausea, no vomiting, no abdominal pain. NEUROLOGICAL: No headaches, no weakness, no numbness. HEMATOLOGICAL: Denies any bleeding or petechiae. GENITOURINARY: Denies any burning micturition, frequency, or urgency. MUSCULOSKELETAL/RHEUMATOLOGICAL: Denies any joint pain, swelling, or any muscle pain. ENDOCRINE: Denies any polyuria or polydipsia. The rest of the 14-point review of systems is negative. 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 Hx cervical cancer with chemo/radiation/brachy therapy in 2016. Low blood pressure. Chronic back and neck pain. Hx pancreatitis X2 post cholecystectomy. Degenerative Disc Disease, Degenerative Arthritis, Failed Back Syndrome. Hx elevated liver enzymes. Poor vision. Some hearing loss in right ear. Sharp stabbing pain in toes and left groin this week, advised to notify Dr. Last Myocardial Infarction Date:: 2009 History of Any Multi-Drug Resistant Organisms: None Reported Past Surgical History: Back Surgery, Section, Cholecystectomy, Orthopedic Surgery, Tubal Ligation, Uterine Ablation Additional Past Surgical History / Comment(s): L4-5, L5-S1 LAMINECTOMY WITH DISCECTOMY, D&C, [place] BIOPSY, SAY SLEEVE FOR BRACHYTHERAPY, LATER REMOVED, 3 1/2 out of 4 parathyroid glands removed. Past Anesthesia/Blood Transfusion Reactions: Previous Problems w/ Anesthesia Additional Past Anesthesia/Blood Transfusion Reaction / Comment(s): AWAKENED DURING SURGERY X2, SPINAL HEADACHE POST D&C, HAD BLOOD PATCH. Past Psychological History: Anxiety, Panic Disorder, PTSD Smoking Status: Never smoker Past Alcohol Use History: Rare Past Drug Use History: Marijuana - Past Family History Mother Additional Family Medical History / Comment(s): no history Father Family Medical History: Cancer Medications and Allergies Home Medications Medication Instructions Recorded Confirmed Type Sertraline [Zoloft] 200 mg PO DAILY 09/14/15 08/14/24 History Warfarin Sodium [Coumadin] 6 mg PO HS 11/16/15 08/14/24 History Metoprolol Succinate (ER) [Toprol 25 mg PO BID 10/08/17 08/14/24 History XL] Omeprazole Magnesium [PriLOSEC] 20 mg PO DAILY 11/12/21 08/14/24 History Cyclobenzaprine [Flexeril] 5 mg PO BID 02/27/23 08/14/24 History metFORMIN HCL 500 mg PO BID 02/27/23 08/14/24 History ALPRAZolam [Xanax] 0.5 mg PO BID PRN 08/14/24 08/14/24 History Gabapentin 300 mg PO TID 08/14/24 08/14/24 History HYDROcodone/APAP 5-325MG [[place] 1 tab PO BID PRN 08/14/24 08/14/24 History 5-325] Levothyroxine Sodium [Synthroid] 75 mcg PO DAILY 08/14/24 08/14/24 History Pioglitazone [Actos] 15 mg PO DAILY 08/14/24 08/14/24 History Semaglutide [Ozempic] 0.5 mg SQ DIRECTED 08/14/24 08/14/24 History Allergies Allergy/AdvReac Type Severity Reaction Status Date / Time Sulfa (Sulfonamide Allergy Rash/Hives, Verified 08/14/24 18:35 Antibiotics) SHORTNESS OF BREATH Physical Exam Vitals: Vital Signs Temp Pulse Resp BP Pulse Ox 08/14/24 14:25 98.5 F 83 16 132/83 98 Intake and Output 08/14/24 08/14/24 08/14/24 06:59 14:59 22:59 Other: Weight 95.254 kg General appearance: alert, in no apparent distress Head exam: Present: normocephalic Eye exam: Present: normal appearance Neck exam: Present: normal inspection Respiratory exam: Present: normal lung sounds bilaterally. Absent: chest wall tenderness Cardiovascular Exam: Present: regular rate, normal rhythm, normal heart sounds Expanded Peripheral pulses: 2+: Radial (R), Radial (L), Dorsalis Pedis (R), Dorsalis Pedis (L) GI/Abdominal exam: Present: soft. Absent: tenderness Extremities exam: Present: calf tenderness (Left-sided). Absent: pedal edema Neurological exam: Present: alert Psychiatric exam: Present: normal affect, normal mood Skin exam: Present: normal color Results CBC & Chem 7: 08/14/24 15:55 08/14/24 15:55 Labs: Abnormal Lab Results - Last 24 Hours (Table) 08/14/24 08/14/24 Range/Units 15:55 15:55 PT 47.6 H (10.0-12.5) sec INR 4.8 H (<1.2) APTT 36.0 H (22.0-30.0) sec Glucose 162 H (74-99) mg/dL Calcium 8.3 L (8.4-10.2) mg/dL Magnesium 1.5 L (1.6-2.3) mg/dL Assessment and Plan Assessment: 1. Chest pain rule out acute coronary syndrome Patient will be admitted to telemetry; monitor EKG and trend troponin -Continue with home dose of aspirin and metoprolol -Consult cardiology for further evaluation and recommendations 2. Pain and swelling left lower extremity; rule out DVT -- Patient had lower extremity Doppler completed which was negative for DVT -- Currently on Coumadin with supratherapeutic INR; we will consult pharmacy to dose Coumadin 3. Electrolyte imbalance; hypomagnesemia/hypocalcemia 4. Diabetes mellitus without long-term insulin use/neuropathy; patient takes metformin, Actos, Ozempic; we will hold off on Ozempic while inpatient monitor Accu-Cheks before every meal and at bedtime with insulin sliding scale; -Continue home dose of Neurontin 300 mg p.o. 3 times daily 5. Hypothyroidism; levothyroxine 75 mcg daily 6. Hypertension; metoprolol 50 mg daily 7. History of PE/DVT; patient takes Coumadin at home with INR that is supratherapeutic at 4.8 8. Chronic pain; patient is currently on [place] and Flexeril DVT prophylaxis; SCDs/Coumadin CODE STATUS; full code
[2024-08-14] MEDS: CYCLOBENZAPRINE 5 MG TAB PO SCH (23:00)
[2024-08-15 05:57] LABS: Glucose,Whole Blood 119 mg/dL (70-110)
[2024-08-15] MEDS: INSULIN ASPART (NovoLOG) 100 UNIT/ML VIAL SQ SCH (05:57)
[2024-08-15] MEDS: LEVOTHYROXINE 75 MCG TAB PO SCH (06:09)
[2024-08-15] MEDS: PIOGLITAZONE 15 MG TAB PO SCH (08:25)
[2024-08-15] MEDS: PANTOPRAZOLE 40 MG TABLET PO SCH (08:25)
[2024-08-15] MEDS: SERTRALINE 100 MG TAB PO SCH (08:27)
[2024-08-15 08:44] LABS: Basophils # (A) 0.01 X 10*3/uL (0.00-0.10); Basophils % (A) 0.3 %; Eosinophils # (A) 0.09 X 10*3/uL (0.04-0.35); Eosinophils % (A) 2.6 %; HCT 38.2 % (37.2-46.3); HGB 12.5 g/dL (12.0-15.0); Lymphocytes # (A) 1.37 X 10*3/uL (0.90-5.00); Lymphocytes % (A) 39.1 %; MCH 27.8 pg (27.0-32.0); MCHC 32.7 g/dL (32.0-37.0); MCV 85.1 FL (80.0-97.0); Mean Platelet Volume 11.5 FL (9.5-12.2); Monocytes # (A) 0.23 X 10*3/uL (0.20-1.00); Monocytes % (A) 6.6 %; NRBC Per 100 WBC 0 X 10*3/uL (0.00-0.01); Neutrophils # (A) 1.79 X 10*3/uL (1.80-7.70); Neutrophils % (A) 51.1 %; Platelet Count 149 X 10*3/uL (140-440); RBC 4.49 X 10*6/uL (4.10-5.20); RDW 13.7 % (11.5-14.5)
--- NOTE | 2024-08-15 10:05 | CA ---
Transthoracic Echo Report Name: Liliana Wiley Age: 53 Gender: F : 1970 Exam Date: 08/15/2024 08:57 Exam Location: [facility] Ht (in): 65 Wt (lb): 230 Ordering Physician: Duc Vega MD ([id number]) Attending/Referring Phys: Silvia CASTAÑEDA Manager [employer] Margot Orta RDCS Procedure CPT: Indications: chest pressure Cardiac Hx: Technical Quality: Fair Contrast 1: Total Dose (mL): Contrast 2: Total Dose (mL): MEASUREMENTS (Male / Female) Normal Values 2D ECHO LV Diastolic Volume MOD BP 49.0 cm??? 67 - 155 / 56 - 104 cm??? LV Systolic Volume MOD BP 21.6 cm??? 22 - 58 / 19 - 49 cm??? LV Ejection Fraction MOD BP 56.0 % >= 55 % LV Cardiac Index MOD BP 785.5 cm???/min???m??? LV Diastolic Volume MOD 4C 64.2 cm??? LV Systolic Volume MOD 4C 22.7 cm??? LV Ejection Fraction MOD 4C 64.6 % LV Cardiac Index MOD 4C 1187.1 cm???/min???m??? LV Diastolic Length 4C 6.7 cm LV Systolic Length 4C 5.1 cm LV Diastolic Volume MOD 2C 36.8 cm??? LV Systolic Volume MOD 2C 18.3 cm??? LV Ejection Fraction MOD 2C 50.3 % LV Cardiac Index MOD 2C 530.1 cm???/min???m??? LV Diastolic Length 2C 6.6 cm LV Systolic Length 2C 5.9 cm M-MODE Aortic Root Diameter MM 2.8 cm LA Systolic Diameter MM 3.8 cm LA Ao Ratio MM 1.4 AV Cusp Separation MM 2.0 cm DOPPLER Mitral E Point Velocity 52.9 cm/s Mitral A Point Velocity 47.6 cm/s Mitral E to A Ratio 1.1 MV Deceleration Time 281.8 ms MV E' Velocity 7.3 cm/s Mitral E to MV E' Ratio 7.2 FINDINGS Left Ventricle Left ventricular ejection fraction is estimated at 55-60%. Normal left ventricular systolic function with no obvious regional wall motion abnormalities. Left ventricular cavity size normal. Right Ventricle Normal right ventricular size and function. Right ventricular systolic pressure within normal limits. Right Atrium Normal right atrial size. Left Atrium Normal left atrial size. Mitral Valve Structurally normal mitral valve. Trace mitral regurgitation. No mitral stenosis. Aortic Valve Trileaflet aortic valve. Trace aortic regurgitation. No aortic stenosis. Tricuspid Valve Structurally normal tricuspid valve. Trace tricuspid regurgitation. No tricuspid stenosis. Pulmonic Valve Structurally normal pulmonic valve. Trace pulmonic regurgitation. No pulmonic stenosis. Pericardium No pericardial or pleural effusion. Aorta Normal size aortic root and proximal ascending aorta. CONCLUSIONS Normal LV function Previewed by: Dr. Duc Vega MD (Electronically Signed) Final Date: 15 August 2024 10:04
[2024-08-15 10:32] LABS: BUN/Creat Ratio 12.78 Ratio (12.00-20.00); Blood Urea Nitrogen 11.5 mg/dL (9.0-27.0); Calcium 7.9 mg/dL (8.7-10.3); Chloride 108 mmol/L (96-109); Chol/HDL Ratio 5.47 Ratio; Glucose 126 mg/dL (70-110); LDL Cholesterol,Calculated 106.3 mg/dL (0.0-131.0); Potassium 3.4 mmol/L (3.5-5.5); Sodium 144 mmol/L (135-145)
[2024-08-15 12:06] LABS: Glucose,Whole Blood 223 mg/dL (70-110)
[2024-08-15] MEDS: POTASSIUM CHLORIDE ER 20 MEQ TAB.ER PO SCH (13:22)
[2024-08-15 13:27] LABS: INR 4.25 sec (0.93-1.11); Prothrombin Time 43.5 sec (9.9-11.9)
[2024-08-15 13:55] LABS: INR 4.3 (<1.2); Prothrombin Time 42.7 sec (10.0-12.5)
--- NOTE | 2024-08-15 14:04 | P.CNPUL ---
History of Present Illness Consult date: 08/15/24 Requesting physician: Polina Lo Reason for consult: chest pain Chief complaint: Chest pain History of present illness: This is a very pleasant 53-year-old female patient with a known history of PE/DVT maintained on warfarin, cervical cancer status post chemoradiation, diabetes mellitus, hypertension lipidemia, anxiety. She had presented here to the emergency room yesterday with complaints of chest discomfort. She also had some left leg discomfort and was concerned regarding possible recurrent DVT/PE. EKG revealed sinus rhythm with no significant ST or T wave abnormalities. Left lower extremity Doppler revealed no evidence of DVT. Chest x-ray revealed no acute cardiopulmonary process. CT angiogram revealed no evidence of pulmonary embolism or acute pulmonary process. Echocardiogram reveals preserved left ventricular systolic function with ejection fraction 55 to 60%. No obvious wall motion abnormalities. White count 3.5. Hemoglobin 12.5. Platelets 149. INR 4.3. Sodium 144. Potassium 3.4. Bicarb 22. BUN 12. Creatinine 0.9. Glucose 126. Troponin negative. She is seen today in consultation on the regular medical floor. She is currently sitting up in bed. Awake and alert in no acute distress. She denies any recurrent chest pain. No significant left lower extremity pain. No shortness of breath. No cough or congestion. No hemoptysis. Review of Systems REVIEW OF SYSTEMS: CONSTITUTIONAL: Denies any recent significant weight loss or weight gain. EYES: Denies change in vision. EARS, NOSE, MOUTH, THROAT: Denies headaches, denies sore throat. CARDIOVASCULAR: Positive for chest pain, no palpitations or syncopal episodes. RESPIRATORY: Denies shortness of breath, cough, congestion or hemoptysis. GASTROINTESTINAL: Denies change in appetite, denies abdominal pain GENITOURINARY: Denies hematuria, denies infections. MUSKULOSKELETAL: Positive for left lower extremity pain, denies swelling. INTEGUMENTARY: Denies rash, denies eczema. NEUROLOGICAL: Denies recent memory loss, no recent seizure activity. PSYCHIATRIC: Denies anxiety, denies depression. HEMATOLOGIC/LYMPHATIC: Denies anemia, denies enlarged lymph nodes. Past Medical History Past Medical History: Cancer, Chest Pain / Angina, Diabetes Mellitus, Deep Vein Thrombosis (DVT), GERD/Reflux, Hearing Disorder / Deafness, Hyperlipidemia, Liver Disease, Myocardial Infarction ([place]), Musculoskeletal Disorder, Osteoarthritis (OA), Pulmonary Embolus (PE) Additional Past Medical History / Comment(s): Recurrent DVT and previous history of massive pulmonary embolism maintained on lifelong Coumadin. Hx cervical cancer with chemo/radiation/brachy therapy in 2016. Low blood pressure. Chronic back and neck pain. Hx pancreatitis X2 post cholecystectomy. Degenerative Disc Disease, Degenerative Arthritis, Failed Back Syndrome. Hx elevated liver enzymes. Poor vision. Some hearing loss in right ear. Sharp stabbing pain in toes and left groin this week, advised to notify Dr. Last Myocardial Infarction Date:: 2009 History of Any Multi-Drug Resistant Organisms: None Reported Past Surgical History: Back Surgery, Section, Cholecystectomy, Orthopedic Surgery, Tubal Ligation, Uterine Ablation Additional Past Surgical History / Comment(s): L4-5, L5-S1 LAMINECTOMY WITH DISCECTOMY, D&C, [place]E BIOPSY, SAY SLEEVE FOR BRACHYTHERAPY, LATER REMOVED, 3 1/2 out of 4 parathyroid glands removed. Past Anesthesia/Blood Transfusion Reactions: Previous Problems w/ Anesthesia Additional Past Anesthesia/Blood Transfusion Reaction / Comment(s): AWAKENED DURING SURGERY X2, SPINAL HEADACHE POST D&C, HAD BLOOD PATCH. Past Psychological History: Anxiety, Panic Disorder, PTSD Smoking Status: Never smoker Past Alcohol Use History: Rare Past Drug Use History: Marijuana - Past Family History Mother Additional Family Medical History / Comment(s): no history Father Family Medical History: Cancer Medications and Allergies Home Medications Medication Instructions Recorded Confirmed Type Sertraline [Zoloft] 200 mg PO DAILY 09/14/15 08/14/24 History Warfarin Sodium [Coumadin] 6 mg PO HS 11/16/15 08/14/24 History Metoprolol Succinate (ER) [Toprol 25 mg PO BID 10/08/17 08/14/24 History XL] Omeprazole Magnesium [PriLOSEC] 20 mg PO DAILY 11/12/21 08/14/24 History Cyclobenzaprine [Flexeril] 5 mg PO BID 02/27/23 08/14/24 History metFORMIN HCL 500 mg PO BID 02/27/23 08/14/24 History ALPRAZolam [Xanax] 0.5 mg PO BID PRN 08/14/24 08/14/24 History Gabapentin 300 mg PO TID 08/14/24 08/14/24 History HYDROcodone/APAP 5-325MG [[place] 1 tab PO BID PRN 08/14/24 08/14/24 History 5-325] Levothyroxine Sodium [Synthroid] 75 mcg PO DAILY 08/14/24 08/14/24 History Pioglitazone [Actos] 15 mg PO DAILY 08/14/24 08/14/24 History Semaglutide [Ozempic] 0.5 mg SQ DIRECTED 08/14/24 08/14/24 History Allergies Allergy/AdvReac Type Severity Reaction Status Date / Time Sulfa (Sulfonamide Allergy Rash/Hives, Verified 08/14/24 18:35 Antibiotics) SHORTNESS OF BREATH Physical Exam Vitals: Vital Signs Temp Pulse Pulse Resp BP BP Pulse Ox 08/15/24 07:00 97.3 F L 72 16 102/61 98 08/15/24 01:09 65 08/15/24 00:41 97.7 F 75 18 113/71 97 08/14/24 21:15 97.8 F 65 18 112/71 96 08/14/24 20:52 98.9 F 64 16 130/71 96 08/14/24 18:15 73 18 113/60 98 08/14/24 14:25 98.5 F 83 16 132/83 98 Intake and Output 08/14/24 08/15/24 08/15/24 22:59 06:59 14:59 Intake Total 118 Balance 118 Intake: Oral 118 Other: # Voids 1 2 Weight 95.254 kg GENERAL EXAM: Alert, very pleasant 53-year-old female, on room air, sitting up in bed, comfortable in no apparent distress. HEAD: Normocephalic. EYES: Normal reaction of pupils, equal size. NOSE: Clear with pink turbinates. THROAT: No erythema or exudates. NECK: No masses, no JVD. CHEST: No chest wall deformity. LUNGS: Equal air entry with no crackles, wheeze, rhonchi or dullness. CVS: S1 and S2 normal with no audible murmur, regular rhythm. ABDOMEN: No hepatosplenomegaly, normal bowel sounds, no guarding or rigidity. SPINE: No scoliosis or deformity SKIN: No rashes CENTRAL NERVOUS SYSTEM: No focal deficits, tone is normal in all 4 extremities. EXTREMITIES: There is no peripheral edema. No clubbing, no cyanosis. Peripheral pulses are intact. Results - Laboratory Findings CBC and BMP: 08/15/24 05:32 08/15/24 05:32 PT/INR, D-dimer PT 43.5 sec (9.9-11.9) H 08/15/24 05:32 INR 4.25 sec (0.93-1.11) H 08/15/24 05:32 Abnormal lab findings: Abnormal Labs 08/14/24 08/14/24 08/15/24 15:55 15:55 05:32 WBC Neutrophils # PT 47.6 H INR 4.8 H APTT 36.0 H Potassium 3.4 L Anion Gap 14.00 H Glucose 162 H 126 H POC Glucose (mg/dL) Calcium 8.3 L 7.9 L Magnesium 1.5 L Triglycerides 200.00 H HDL Cholesterol 32.70 L 08/15/24 08/15/24 08/15/24 05:32 05:32 05:55 WBC 3.50 L Neutrophils # 1.79 L PT 43.5 H INR 4.25 H APTT Potassium Anion Gap Glucose POC Glucose (mg/dL) 119 H Calcium Magnesium Triglycerides HDL Cholesterol 08/15/24 12:04 WBC Neutrophils # PT INR APTT Potassium Anion Gap Glucose POC Glucose (mg/dL) 223 H Calcium Magnesium Triglycerides HDL Cholesterol - Diagnostic Findings Chest x-ray: image reviewed CT scan - chest: image reviewed Assessment and Plan Assessment: Atypical chest pain, acute coronary syndrome ruled out, acute pulmonary embolism ruled out. No acute cardiopulmonary process Left lower extremity discomfort, DVT ruled out History of PE/DVT maintained on warfarin, currently supratherapeutic at 4.3 Chemoradiation Hearing disorder Hyperlipidemia Diabetes mellitus History of anxiety Plan: The patient was seen and evaluated Imaging, echocardiogram, labs and medications reviewed No evidence of PE/DVT Supratherapeutic on warfarin Continue to hold for now Stable and on room air Home once cleared by cardiology I have personally seen and examined the patient, performed the documentation and the assessment and plan as written. Number of minutes spent on the visit: 20 Dictation was produced using [employer] dictation software. Please excuse any grammatical, word or spelling errors.
[2024-08-15 14:18] VITALS: BP 110/70; PULSE 67; RESP 17; TEMP 97.9
[2024-08-15] MEDS: MAGNESIUM SULFATE-D5W PMX 1 GM in DEXTROSE/WATER 1 100ML.BAG IVPB ONE (15:20)
[2024-08-15] MEDS: PHYTONADIONE ORAL 5 MG/5 ML ORAL.SYRG PO STA (16:44)
[2024-08-15] MEDS ORDERED: WARFARIN 0.5 MG TAB PO ONE (18:00)
--- NOTE | 2024-08-15 19:14 | CONS ---
CONSULTATION HISTORY OF PRESENT ILLNESS: Liliana is a 53-year-old lady with history of DVT and pulmonary embolism, hypertension, [id number] diabetes and hypothyroidism who apparently had a myocardial infarction many years ago. Never had any stenting and does not see a telephone switchboard operator regularly who presented to the hospital mainly with symptoms of left leg pain and some dizziness. She had sharp atypical chest pain also. She does not have PND or orthopnea. There is no history of focal neurological deficits. She was concerned that she was having another bout of pulmonary embolism and she came in. The patient is currently on Coumadin. INR is 4.8, but recently had stopped taking Coumadin, but bridged with Lovenox. She had a venous duplex done that is negative for DVT. At the time of my evaluation, the patient is comfortable at rest. EKG shows sinus rhythm with nonspecific ST-T wave changes. Three sets of troponins are negative. CT scan of the chest is negative for pulmonary embolism. The patient will undergo an echocardiogram today. If that is normal, will be discharged home and I will arrange for an outpatient stress test. The patient's INR is elevated. The admitting physician and the primary care physician who sees the patient regularly will adjust the Coumadin doses to maintain an INR between 2 and 3. PAST MEDICAL HISTORY: Significant for hypothyroidism, [id number] diabetes, DVT and pulmonary embolism. CURRENT MEDICATIONS: Include: 1. Toprol-XL 25 b.i.d. 2. [place]. 3. Flexeril. 4. Metformin. 5. Coumadin. 6. Zoloft. 7. Actos. 8. Synthroid. ALLERGIES: Allergic to sulfa. FAMILY HISTORY: Negative for premature coronary artery disease. SOCIAL HISTORY: Negative for current smoking, EtOH abuse, or drug abuse. REVIEW OF SYSTEMS: A review of systems has been performed, pertinents are as documented. PHYSICAL EXAMINATION: GENERAL: She is comfortable at rest. VITAL SIGNS: Stable. CHEST: Reveals good air entry bilaterally. HEART: Reveals first and second heart sounds. No gallop. No murmur. No rub. ABDOMEN: Soft, nontender. EXTREMITIES: Did not reveal any edema. Peripheral pulses are felt. LABORATORY DATA: Troponins are negative. INR is 4.8, hemoglobin is 12.5, platelet count is 147. Potassium is 3.7, creatinine is 0.8. ASSESSMENT AND PLAN: 1. Atypical chest pain. 2. Left leg discomfort. 3. History of pulmonary embolism, on Coumadin. PLAN: Pharmacy to dose Coumadin. I will obtain a 2D echo. No further cardiac workup at this time. I will follow the patient as outpatient and consider an outpatient stress test. LOIDA / YOGI: [id number] /
--- NOTE | 2024-08-15 22:58 | P.DS ---
Providers Date of admission: 08/14/24 17:57 Attending physician: Polina Lo MD Consults: 08/14/24 17:57 Consult Physician Urgent Consulting Provider: Gee Castellanos Consult Reason/Comments: cp Do you want consulting provider notified?: Yes Primary care physician: Stated None Hospital Course: Diagnoses: 1. Chest pain ,coronary syndrome ruled out and patient was cleared by school bus technician. Results upon discharge 2. Pain and swelling left lower extremity; ultrasound was negative for DVT. Besides INR was elevated upon admission makes clotting disease very unlikely 3. Coagulopathy secondary to Coumadin. Patient took her last dose of Coumadin prior to hospitalization 4. Diabetes mellitus without long-term insulin use/neuropathy; patient takes metformin, Actos, Ozempic; resume diabetes medication upon discharge 5. Hypothyroidism; 6. Hypertension; 7. History of PE/DVT; patient takes Coumadin at home with INR that is supratherapeutic at 4.8 8. Chronic pain; patient is currently on [place] [facility] Hospital course: Patient is a pleasant 53-year-old female present to the emergency department with concerns with some chest discomfort, dyspnea, and left leg discomfort. Patient does have history of embolism in her leg and lungs.. Patient had CTA of the lung which was negative as well as ultrasound of the leg which was negative for clotting disease and DVT. Today patient symptoms resolved. No chest pain no dyspnea, no leg pain or swelling, tolerates diet well and she denies any other symptoms and she is agreeable to go home today Patient evaluated by school bus technician. Echocardiogram was requested and cardiology cleared her for discharge and follow-up outpatient for stress test Her coumadine presents elevated but stable at 4.3 with no evidence of bleeding. Patient told me she is going to go to Dr. Alfaro office who is her PCP and she can check her INR tomorrow. Patient informed to keep holding Coumadin upon discharge till INR below 3 and she agrees. She has Coumadin prescription at home. No other new complaint Patient was cleared for discharge by school bus technician and layout inspector Problems and management plan were discussed with the patient and he verbalized understanding and acceptance Patient was found stable and can be discharged home in guarded prognosis however he needs follow-up as an outpatient. Patient was instructed to follow up with PCP and layout inspector Dr. Patel within one week and patient agrees Patient was instructed to follow-up with school bus technician Dr. Lu in 1 to 2 weeks and she agrees Physical exam Gen: patient is a AAOx3, no distress CVS: S1-S2, RRR, no murmur Lungs: B/L CTA, no wheezing Abdomen: soft, no distention, no tenderness, positive bowel sounds Extremity: no leg edema or induration Time spent more than 35 minutes Plan - Discharge Summary Discharge Rx Participant: No New Discharge Prescriptions: New Magnesium Oxide [Mag-Ox] 400 mg PO BID 3 Days #6 tablet Continue Sertraline [Zoloft] 200 mg PO DAILY Warfarin Sodium [Coumadin] 6 mg PO HS Metoprolol Succinate (ER) [Toprol XL] 25 mg PO BID Cyclobenzaprine [Flexeril] 5 mg PO BID metFORMIN HCL 500 mg PO BID HYDROcodone/APAP 5-325MG [[place] 5-325] 1 tab PO BID PRN PRN Reason: Pain Semaglutide [Ozempic] 0.5 mg SQ DIRECTED Levothyroxine Sodium [Synthroid] 75 mcg PO DAILY Pioglitazone [Actos] 15 mg PO DAILY Gabapentin 300 mg PO TID ALPRAZolam [Xanax] 0.5 mg PO BID PRN PRN Reason: Anxiety Omeprazole Magnesium [PriLOSEC] 20 mg PO DAILY Discharge Medication List Sertraline [Zoloft] 200 mg PO DAILY 09/14/15 [History] Warfarin Sodium [Coumadin] 6 mg PO HS 11/16/15 [History] Metoprolol Succinate (ER) [Toprol XL] 25 mg PO BID 10/08/17 [History] Omeprazole Magnesium [PriLOSEC] 20 mg PO DAILY 11/12/21 [History] Cyclobenzaprine [Flexeril] 5 mg PO BID 02/27/23 [History] metFORMIN HCL 500 mg PO BID 02/27/23 [History] ALPRAZolam [Xanax] 0.5 mg PO BID PRN 08/14/24 [History] Gabapentin 300 mg PO TID 08/14/24 [History] HYDROcodone/APAP 5-325MG [[place] 5-325] 1 tab PO BID PRN 08/14/24 [History] Levothyroxine Sodium [Synthroid] 75 mcg PO DAILY 08/14/24 [History] Pioglitazone [Actos] 15 mg PO DAILY 08/14/24 [History] Semaglutide [Ozempic] 0.5 mg SQ DIRECTED 08/14/24 [History] Magnesium Oxide [Mag-Ox] 400 mg PO BID 3 Days #6 tablet 08/15/24 [Rx] Follow up Appointment(s)/Referral(s): Gee Castellanos MD [STAFF PHYSICIAN] - 2 Weeks (Hotel Front Office Manager) None,Stated [Primary Care Provider] - 1-2 days Lobo Max MD [STAFF PHYSICIAN] - 1 Week Ambulatory/Diagnostic Orders: Prothrombin Time INR [LAB.AMB] Time Frame: 1 Day, Location: None Selected Activity/Diet/Wound Care/Special Instructions: Heart healthy diet Activity is restricted till you see your doctor We recommend to check your INR in 1 to 2 days [address] your PCP Dr. Lebron. Goal INR is 2.0-3.0 Hold Coumadin if INR more than 3 your INR Today is 4.3, keep holding your coumadin till you check your INR in 1-2 days with your doctor and resume when INR is less than 3.0 Discharge Disposition: HOME SELF-CARE
== END 2024-08-15 17:20 | disposition home or self-care (01) ==
LOC: EC 14:24 → 6NMEDSUR 17:57
PROVIDERS: ADMIT Internal Medicine; ATTEND Internal Medicine
DX: R07.89 Other chest pain (principal); M79.605 Pain in left leg; E83.42 Hypomagnesemia; E83.51 Hypocalcemia; D68.9 Coagulation defect, unspecified; T45.515A Adverse effect of anticoagulants, initial encounter; K21.9 Gastro-esophageal reflux disease without esophagitis; E03.9 Hypothyroidism, unspecified; E11.40 Type 2 diabetes mellitus with diabetic neuropathy, unspecified; E78.5 Hyperlipidemia, unspecified; F41.0 Panic disorder [episodic paroxysmal anxiety]; F43.10 Post-traumatic stress disorder, unspecified; G89.29 Other chronic pain; I10 Essential (primary) hypertension; I25.2 Old myocardial infarction; Z79.01 Long term (current) use of anticoagulants; Z79.84 Long term (current) use of oral hypoglycemic drugs; Z79.890 Hormone replacement therapy; Z79.899 Other long term (current) drug therapy; Z86.711 Personal history of pulmonary embolism; Z86.718 Personal history of other venous thrombosis and embolism; Z85.41 Personal history of malignant neoplasm of cervix uteri; Z92.21 Personal history of antineoplastic chemotherapy; Z92.3 Personal history of irradiation; Z79.85 Long-term (current) use of injectable non-insulin antidiabetic drugs
CPT/HCPCS: 96365; 99285; 36415; 93005; 93306; 83880; 80061; 80053; 80048; 83605; 83735 ×2; 84484; 85025 ×2; 85610 ×2; 85730; 71046; 93971; 71275; G0378 ×2; J3475; Q9967

== ENCOUNTER 2024-09-13 19:52 | Emergency (ER) | payer OTHER ==
--- NOTE | 2024-09-13 20:32 | ED ---
Eye Problem HPI - General Stated complaint: L Eye Irritation Time Seen by Provider: 09/13/24 20:07 Source: patient, RN notes reviewed Mode of arrival: ambulatory Limitations: no limitations - History of Present Illness Initial comments: This is a 54-year-old female with significant medical history presenting for left eye redness since this morning. Patient states she woke up, looking in the mirror when she noticed the lateral aspect of her left eye seemed extremely red and almost bleeding. Denies known cause or recent trauma to affected eye. Denies headache, pain, discharge, epiphora or visual changes. Endorses use of warfarin. MD chief complaint: eye redness Onset/Timin -: days(s) Onset Description: sudden Location: left eye Place: home If Injury: none Associated Symptoms: none - Related Data Home Medications Medication Instructions Recorded Confirmed Sertraline [Zoloft] 200 mg PO DAILY 09/14/15 08/14/24 Warfarin Sodium [Coumadin] 6 mg PO HS 11/16/15 08/14/24 Metoprolol Succinate (ER) [Toprol 25 mg PO BID 10/08/17 08/14/24 XL] Omeprazole Magnesium [PriLOSEC] 20 mg PO DAILY 11/12/21 08/14/24 Cyclobenzaprine [Flexeril] 5 mg PO BID 02/27/23 08/14/24 metFORMIN HCL 500 mg PO BID 02/27/23 08/14/24 ALPRAZolam [Xanax] 0.5 mg PO BID PRN 08/14/24 08/14/24 Gabapentin 300 mg PO TID 08/14/24 08/14/24 HYDROcodone/APAP 5-325MG [[place] 1 tab PO BID PRN 08/14/24 08/14/24 5-325] Levothyroxine Sodium [Synthroid] 75 mcg PO DAILY 08/14/24 08/14/24 Pioglitazone [Actos] 15 mg PO DAILY 08/14/24 08/14/24 Semaglutide [Ozempic] 0.5 mg SQ DIRECTED 08/14/24 08/14/24 Previous Rx's Medication Instructions Recorded Magnesium Oxide [Mag-Ox] 400 mg PO BID 3 Days #6 tablet 08/15/24 Allergies Allergy/AdvReac Type Severity Reaction Status Date / Time Sulfa (Sulfonamide Allergy Rash/Hives, Verified 09/13/24 20:37 Antibiotics) SHORTNESS OF BREATH Review of Systems ROS Statement: Those systems with pertinent positive or pertinent negative responses have been documented in the HPI. ROS Other: All systems not noted in ROS Statement are negative. 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 Hx cervical cancer with chemo/radiation/brachy therapy in 2016. Low blood pressure. Chronic back and neck pain. Hx pancreatitis X2 post cholecystectomy. Degenerative Disc Disease, Degenerative Arthritis, Failed Back Syndrome. Hx elevated liver enzymes. Poor vision. Some hearing loss in right ear. Sharp stabbing pain in toes and left groin this week, advised to notify Dr. Last Myocardial Infarction Date:: 2009 History of Any Multi-Drug Resistant Organisms: None Reported Past Surgical History: Back Surgery, Section, Cholecystectomy, Orthopedic Surgery, Tubal Ligation, Uterine Ablation Additional Past Surgical History / Comment(s): L4-5, L5-S1 LAMINECTOMY WITH DISCECTOMY, D&C, CONE BIOPSY, SAY SLEEVE FOR BRACHYTHERAPY, LATER REMOVED, 3 1/2 out of 4 parathyroid glands removed. Past Anesthesia/Blood Transfusion Reactions: Previous Problems w/ Anesthesia Additional Past Anesthesia/Blood Transfusion Reaction / Comment(s): AWAKENED DURING SURGERY X2, SPINAL HEADACHE POST D&C, HAD BLOOD PATCH. Past Psychological History: Anxiety, Panic Disorder, PTSD Smoking Status: Never smoker Past Alcohol Use History: Rare Past Drug Use History: Marijuana - Past Family History Mother Additional Family Medical History / Comment(s): no history Father Family Medical History: Cancer General Exam General appearance: alert, in no apparent distress Head exam: Present: atraumatic, normocephalic, normal inspection Eye exam: Present: normal appearance, PERRL, EOMI, other (Positive left lateral subconjunctival hemorrhage. Tonometer: Bilateral 1719. Snellen chart: Right 20/40, left 20/30. Watson lamp reveals no corneal abrasion, traumatic injury or Landry sign). Absent: scleral icterus, conjunctival injection, periorbital swelling Pupils: Present: normal accommodation ENT exam: Present: normal exam, mucous membranes moist Neck exam: Present: normal inspection. Absent: tenderness, meningismus, lymp hadenopathy Respiratory exam: Present: normal lung sounds bilaterally. Absent: respiratory distress, wheezes, rales, rhonchi, stridor Cardiovascular Exam: Present: regular rate, normal rhythm, normal heart sounds. Absent: systolic murmur, diastolic murmur, rubs, gallop, clicks GI/Abdominal exam: Present: soft, normal bowel sounds. Absent: distended, tenderness, guarding, rebound, rigid Extremities exam: Present: normal inspection, full ROM, normal capillary refill. Absent: tenderness, pedal edema, joint swelling, calf tenderness Back exam: Present: normal inspection Neurological exam: Present: alert, oriented X3, CN II-XII intact Psychiatric exam: Present: normal affect, normal mood Skin exam: Present: warm, dry, intact, normal color. Absent: rash Course Vital Signs 09/13/24 09/13/24 20:37 22:19 Temperature 98.2 F 98.0 F Pulse Rate 83 76 Respiratory 18 18 Rate Blood Pressure 125/75 108/72 O2 Sat by Pulse 95 98 Oximetry Medical Decision Making - Medical Decision Making Was pt. sent in by a medical professional or institution (, [place], [facility], urgent care, hospital, or [facility]...) When possible be specific @ -No Did you speak to anyone other than the patient for history (EMS, parent, family, police, friend...)? What history was obtained from this source @ -No Did you review nursing and triage notes (agree or disagree)? Why? @ -I reviewed and agree with nursing and triage notes Were old charts reviewed (outside hosp., previous admission, EMS record, old EKG, old radiological studies, urgent care reports/EKG's, [facility] records)? Report findings @ -No old charts were reviewed Differential Diagnosis (chest pain, altered mental status, abdominal pain women, abdominal pain men, vaginal bleeding, weakness, fever, dyspnea, syncope, headache, dizziness, GI bleed, back pain, seizure, CVA, palpatations, mental health, musculoskeletal)? @ -Subconjunctival hemorrhage, conjunctivitis, episcleritis, iritis, orbital contusion, glaucoma, this is not an exhaustive list EKG interpreted by me (3pts min.). @ -Not done X-rays interpreted by me (1pt min.). @ -None done CT interpreted by me (1pt min.). @ -None done U/S interpreted by me (1pt. min.). @ -None done What testing was considered but not performed or refused? (CT, X-rays, U/S, labs)? Why? @ -None What meds were considered but not given or refused? Why? @ -None Did you discuss the management of the patient with other professionals (professionals i.e. Dr., PA, [facility], lab, RT, psych nurse, social worker assistant, pest controller, teacher, airline pilot/first officer, egg caser)? Give summary @ -No Was smoking cessation discussed for >3mins.? @ -No Was critical care preformed (if so, how long)? @ -No Were there social determinants of health that impacted care today? How? (Homelessness, low income, unemployed, alcoholism, drug addiction, transportation, low edu. Level, literacy, decrease access to med. care, long-term, rehab)? @ -No Was there de-escalation of care discussed even if they declined (Discuss DNR or withdrawal of care, Hospice)? DNR status @ -No What co-morbidities impacted this encounter? (DM, HTN, Smoking, COPD, CAD, Cancer, CVA, ARF, Chemo, Hep., AIDS, mental health diagnosis, sleep apnea, morbid obesity)? @ -None Was patient admitted / discharged? Hospital course, mention meds given and route, prescriptions, significant lab abnormalities, going to OR and other pertinent info. @ -Patient tested/examined with Snellen chart, tonometer and Watson lamp with no concerning findings. Reassurance provided and advised condition and will resolve without intervention. Advised follow-up with PCP/ophthalmology as needed. Discussed patient with Dr. Hammonds. Undiagnosed new problem with uncertain prognosis? @ -No Drug Therapy requiring intensive monitoring for toxicity (Heparin, Nitro, Insulin, Cardizem)? @ -No Were any procedures done? @ -No Diagnosis/symptom? @ -Subconjunctival hemorrhage Acute, or Chronic, or Acute on Chronic? @ -Acute Uncomplicated (without systemic symptoms) or Complicated (systemic symptoms)? @ -Uncomplicated Side effects of treatment? @ -No Exacerbation, Progression, or Severe Exacerbation? @ -No Poses a threat to life or bodily function? How? (Chest pain, [place], [place], pneumonia, PE, COPD, DKA, ARF, appy, cholecystitis, CVA, Diverticulitis, Homicidal, Suicidal, threat to staff... and all critical care pts) @ -No Disposition Clinical Impression: Subconjunctival hemorrhage Disposition: HOME SELF-CARE Condition: Good Instructions (If sedation given, give patient instructions): Subconjunctival Hemorrhage (ED) Is patient prescribed a controlled substance at d/c from ED?: No Referrals: Lobo Max MD [Primary Care Provider] - 1-2 days Time of Disposition: 21:53
[2024-09-13 20:40] VITALS: RESP 18
[2024-09-13] MEDS: TETRACAINE 0.5% OPHTH (PF) DROPS 4 ML BTL LEFT EYE STA (21:40)
[2024-09-13 22:21] VITALS: BP 108/72; PULSE 76; TEMP 98
== END 2024-09-13 22:21 | disposition home or self-care (01) ==
LOC: EC 19:52
DX: H11.32 Conjunctival hemorrhage, left eye (principal)
CPT/HCPCS: 99283

== ENCOUNTER → 2024-11-21 | Outpatient (CLI) | payer OTHER ==
[2024-11-21 19:02] LABS: ALT 28 U/L (8-44); AST 24 U/L (13-35); Albumin 4.3 g/dL (3.8-4.9); Albumin/Globulin Ratio 1.72 Ratio (1.60-3.17); Alkaline Phosphatase 55 U/L (41-126); Blood Urea Nitrogen 13.9 mg/dL (9.0-27.0); Calcium 9.8 mg/dL (8.7-10.3); Carbon Dioxide 28.1 mmol/L (21.6-31.8); Chloride 101 mmol/L (96-109); Chol/HDL Ratio 5.57 Ratio; Globulin 2.5 g/dL (1.6-3.3); Glucose 141 mg/dL (70-110); LDL Cholesterol,Calculated 203.8 mg/dL (0.0-131.0); Potassium 4.8 mmol/L (3.5-5.5); Sodium 138 mmol/L (135-145); T4, Free (Free Thyroxine) 1.29 ng/dL (0.80-1.80); Total Bilirubin 0.3 mg/dL (0.3-1.2); Total Protein 6.8 g/dL (6.2-8.2)
[2024-11-21 20:41] LABS: Microalbumin Creatinine Ratio <5 mg/g Cr (0-30)
== END | disposition home or self-care (01) ==
LOC: LABWHC1 13:06
PROVIDERS: ATTEND Internal Medicine
DX: E11.65 Type 2 diabetes mellitus with hyperglycemia (principal); E03.9 Hypothyroidism, unspecified
CPT/HCPCS: 36415; 80053; 80061; 82043; 82570; 83036; 84439; 84443